=== PATIENT | female | born 1990 | race Caucasian/White ===

== ENCOUNTER 2016-09-11 14:17 | Inpatient (IN) | payer MEDICAID ==
[~2016-09-11] VITALS: Ht 165.1 cm; Wt 122.5 kg
[~2016-09-11 14:17] MED LIST: ASPI-231 PO; BACL20TA PO; DOCU-94 PO; DULO60CA PO; FAM20T PO; FLUR30CA12 PO; FURO40TA PO; GABA250S2 PO; LOPE1SUS PO; LORA1TAB12 PO; OXY5T GT; Phenazopyridine Hcl PO; ZOLP12.564 PO
[2016-09-11 15:42] LABS: Urine Bilirubin Negative (Negative); Urine Blood Negative /uL (Negative); Urine Glucose Normal (Normal); Urine Ketone Negative (Negative); Urine Nitrite Negative (Negative); Urine RBC 4 /hpf (0 - 4); Urine Squamous Epithelial Cell FEW /hpf (<5); Urine Urobilinogen Normal (Negative)
[2016-09-11 15:43] LABS: Urine Color Straw (Yellow)
[2016-09-11 16:03] LABS: Basophils # (auto) 0 uL; Basophils % (auto) 0.2 % (0.0-2.0); Eosinophils # (auto) 0.1 uL; Hematocrit 36.6 % (36.0-46.0); Hemoglobin 11.9 g/dL (12.2-16.2); Lymphocytes # (auto) 1.6 uL; Lymphocytes % (auto) 16.9 % (10.0-50.0); Mean Corpuscular Hemoglobin 29.7 pg (28.0-32.0); Mean Corpuscular Hgb Conc. 32.4 g/dL (32.0-36.0); Mean Corpuscular Volume 91.5 fL (80.0-100.0); Mean Platelet Volume 8.3 fL (7.4-10.4); Monocytes # (auto) 0.8 uL; Monocytes % (auto) 7.9 % (0.0-12.0); Neutrophils # (auto) 7.1 uL; Platelet Count (auto) 317 10^3/uL (140-450); Red Cell Distribution Width 14.4 % (11.6-16.0); White Blood Cell 9.5 10^3/uL (4.4-10.8)
[2016-09-11 16:17] LABS: Albumin 3.9 g/dL (3.4-5.0); BUN/Creatinine Ratio 11.1; Calcium 8.6 mg/dL (8.5-10.1); Potassium 4.2 mmol/L (3.5-5.1)
[2016-09-11 16:20] LABS: Bilirubin, Total 0.2 mg/dL (0.2-1.0)
[2016-09-11] MEDS ORDERED: diphenhdrAMINE HCL 50 MG/1 ML VL IV ONE (22:00)
[2016-09-11] MEDS: HYDROmorphone HCL 2 MG/ML VL IV ONE (22:15)
[2016-09-11] MEDS ORDERED: ONDANSETRON ODT 4 MG TAB PO ONE (22:15)
[2016-09-11] MEDS ORDERED: HYDROmorphone HCL 2 MG/ML VL IV ONE (22:15)
[2016-09-11] MEDS ORDERED: PROMETHAZINE-DM 5 ML ORAL SYRUP PO ONE (22:45)
[2016-09-11] MEDS ORDERED: guaiFENesin 200 MG/10 ML UD PO ONE (23:00)
[2016-09-12] MEDS ORDERED: guaiFENesin-DEXTROMETHORPHAN 5ML SYR PO ONE (01:00)
[2016-09-12] MEDS ORDERED: LORazepam 2MG/ML-1ML VIAL IV ONE (01:00)
[2016-09-12] MEDS ORDERED: IPRATROPIUM BROM 0.5 MG/2.5ML INH SOL NEB ONE (01:30)
[2016-09-12] MEDS ORDERED: ALBUTEROL SULF 2.5 MG/0.5ML(0.5%) NEB SOLN NEB ONE (01:30)
[2016-09-12] MEDS ORDERED: LORazepam 0.5 MG TAB PO PRN (03:15)
[2016-09-12] MEDS ORDERED: SODIUM CHLORIDE 0.9% 1,000 ML IV SCH (03:20)
[2016-09-12] MEDS ORDERED: LACTULOSE 20Gm/30ML SOLN PO PRN (03:30)
[2016-09-12] MEDS: methylPREDNISolone SOD SUCC 125 MG/2 ML VL IV SCH ×2 (03:30→08:33)
[2016-09-12] MEDS ORDERED: MORPHINE SULF INJ 2 MG/ML SYRINGE 1ML IV PRN (03:30)
[2016-09-12] MEDS ORDERED: NITROGLYCERIN 0.4 MG SL TAB SL PRN (03:30)
[2016-09-12] MEDS: HYDROmorphone HCL 2 MG/ML VL IV PRN ×2 (03:43→08:33)
[2016-09-12] MEDS: ONDANSETRON HCL 4 MG/2 ML VIAL IV PRN ×2 (03:52→08:33)
[2016-09-12 03:59] VITALS: BP 109/59
[2016-09-12] MEDS ORDERED: AZITHROMYCIN 500MG/D5W 250ML 250 ML IV ONE (04:00)
[2016-09-12] MEDS: cefTRIAXone 1GM/50ML D5W 50 ML IV SCH ×2 (04:03→08:33)
[2016-09-12 05:00] VITALS: BP 112/64
[2016-09-12] MEDS: GABAPENTIN 300 MG CAP PO SCH ×2 (06:18→15:04)
[2016-09-12] MEDS: BACLOFEN 10 MG TAB PO SCH ×2 (06:19→15:04)
[2016-09-12] MEDS: IPRATROPIUM BROM 0.5 MG/2.5ML INH SOL NEB SCH ×3 (06:40→13:55)
[2016-09-12] MEDS: ALBUTEROL SULF 2.5 MG/0.5ML(0.5%) NEB SOLN NEB SCH ×3 (06:40→13:55)
[2016-09-12] MEDS ORDERED: BUTACAP35 PO (08:12)
[2016-09-12] MEDS ORDERED: ASPirin 81 mg TAB PO SCH (10:00)
[2016-09-12] MEDS ORDERED: ENOXAPARIN SOD 40 MG/0.4 ML SYRINGE SC SCH (10:00)
[2016-09-12] MEDS ORDERED: PANTOPRAZOLE SODIUM 40 MG/10 ML VIAL IV SCH (10:00)
[2016-09-12] MEDS ORDERED: DULoxetine HCL 30 MG CAP PO SCH (10:00)
[2016-09-12] MEDS ORDERED: ACETAMINOPHEN 325 MG TAB PO PRN (12:00)
[2016-09-12] MEDS ORDERED: HYDROcodone-ACET 5/325MG TAB PO PRN (12:00)
[2016-09-12 13:07] VITALS: BP 110/51
[2016-09-12] MEDS ORDERED: HYDROmorphone HCL 2 MG/ML VL IV PRN (14:30)
[2016-09-12] MEDS ORDERED: METH4PAK PO (15:27)
[2016-09-12] MEDS ORDERED: LEVO500T3 PO (15:27)
[2016-09-12] MEDS ORDERED: IPRIH IN (15:27)
[2016-09-12] MEDS ORDERED: OXYCODONE HCL 5MG TAB PO PRN (15:30)
[2016-09-12 16:28] VITALS: BP 110/51
[2016-09-12 17:37] VITALS: BP 105/66
[2016-09-13] MEDS ORDERED: AZITHROMYCIN 500MG/D5W 250ML 250 ML IV SCH (10:00)
== END 2016-09-12 17:45 | disposition home health service (06) | DRG 140 ==
LOC: ER 14:29 → TELE 14:30 → TELE-WESTW 09-12 04:43
PROVIDERS: ADMIT Family Medicine; ATTEND Family Medicine
DX: J44.0 Chronic obstructive pulmonary disease with (acute) lower respiratory infection (principal); I27.2 Other secondary pulmonary hypertension; Z93.0 Tracheostomy status; G31.89 Other specified degenerative diseases of nervous system; F41.9 Anxiety disorder, unspecified; G89.4 Chronic pain syndrome; J20.9 Acute bronchitis, unspecified; J44.1 Chronic obstructive pulmonary disease with (acute) exacerbation; J45.30 Mild persistent asthma, uncomplicated; J98.11 Atelectasis; K21.9 Gastro-esophageal reflux disease without esophagitis; M79.7 Fibromyalgia; N39.0 Urinary tract infection, site not specified; G89.29 Other chronic pain; M54.5 Low back pain; F32.9 Major depressive disorder, single episode, unspecified; K59.00 Constipation, unspecified; G47.00 Insomnia, unspecified
CPT/HCPCS: 36415; 71020; 80053; 81001; 81025; 85025; 85049; 85379; 87040; 87070; 87400; 93005; 94640; 96361; 96374; 96375; 97116; 97530; C9113; J0696; J2405; Q0162

== ENCOUNTER 2016-12-24 12:58 | Inpatient (IN) | payer MEDICAID ==
[~2016-12-24] VITALS: Ht 165.1 cm; Wt 123.1 kg
[~2016-12-24 12:58] MED LIST changes: +BUTACAP35 PO; +IPRIH IN; +LEVO500T3 PO; +METH4PAK PO
[2016-12-24 14:12] LABS: Basophils # (auto) 0 uL; Basophils % (auto) 0.3 % (0.0-2.0); Eosinophils # (auto) 0.1 uL; Eosinophils % (auto) 0.6 % (0.0-7.0); Hematocrit 39.5 % (36.0-46.0); Hemoglobin 13.2 g/dL (12.2-16.2); Lymphocytes # (auto) 1.4 uL; Lymphocytes % (auto) 12.5 % (10.0-50.0); Mean Corpuscular Hemoglobin 30.1 pg (28.0-32.0); Mean Corpuscular Hgb Conc. 33.4 g/dL (32.0-36.0); Mean Corpuscular Volume 90.2 fL (80.0-100.0); Mean Platelet Volume 8.6 fL (7.4-10.4); Monocytes # (auto) 0.8 uL; Monocytes % (auto) 6.8 % (0.0-12.0); Neutrophils # (auto) 9.2 uL; Neutrophils % (auto) 79.8 % (37.0-80.0); Platelet Count (auto) 333 10^3/uL (140-450); Red Cell Distribution Width 14.1 % (11.6-16.0); White Blood Cell 11.5 10^3/uL (4.4-10.8)
[2016-12-24 14:28] LABS: Albumin 4.2 g/dL (3.4-5.0); BUN/Creatinine Ratio 8.8; Bilirubin, Total 0.3 mg/dL (0.2-1.0); Potassium 3.9 mmol/L (3.5-5.1); Total Protein 7.5 g/dL (6.4-8.2)
[2016-12-24 14:39] LABS: B-Type Natriuretic Peptide 4.91 pg/mL (0-100)
[2016-12-24 14:51] LABS: Temperature: 23.6 C (20.0-25.0)
[2016-12-24] MEDS ORDERED: diphenhdrAMINE HCL 50 MG/1 ML VL IV ONE (15:30)
[2016-12-24] MEDS ORDERED: MORPHINE SULFATE 4 MG/ML SYRG IV ONE (15:30)
[2016-12-24] MEDS ORDERED: IPRATROPIUM BROM 0.5 MG/2.5ML INH SOL NEB ONE (15:30)
[2016-12-24] MEDS ORDERED: cefTRIAXone 1GM/50ML D5W 50 ML IV ONE (15:30)
[2016-12-24] MEDS ORDERED: methylPREDNISolone SOD SUCC 125 MG/2 ML VL IV ONE (15:30)
[2016-12-24] MEDS ORDERED: ALBUTEROL SULF 2.5 MG/0.5ML(0.5%) NEB SOLN NEB ONE (15:30)
[2016-12-24] MEDS ORDERED: FLURAZEPAM HCL 30 MG PO PRN (15:45)
[2016-12-24] MEDS ORDERED: OXYCODONE HCL 5MG TAB GT PRN (15:45)
[2016-12-24] MEDS: DOXYCYCLINE HYC 100MG/250ML 250 ML IV SCH (15:45)
[2016-12-24] MEDS ORDERED: NITROGLYCERIN 0.4 MG SL TAB SL PRN (15:45)
[2016-12-24] MEDS ORDERED: MORPHINE SULF INJ 2 MG/ML SYRINGE 1ML IV PRN (15:45)
[2016-12-24] MEDS ORDERED: BUTALBITAL-ASPIRIN-CAFF(FioriNAL) CAP PO PRN (15:45)
[2016-12-24] MEDS ORDERED: ZOLPIDEM TARTRATE 5 MG TAB PO PRN (15:45)
[2016-12-24] MEDS ORDERED: ACETAMINOPHEN 500 MG TAB PO PRN (15:45)
[2016-12-24] MEDS ORDERED: LACTULOSE 20Gm/30ML SOLN PO PRN (15:45)
[2016-12-24] MEDS ORDERED: ALBUTEROL SULF 2.5 MG/0.5ML(0.5%) NEB SOLN NEB PRN (15:45)
[2016-12-24] MEDS ORDERED: ASPirin-EC 81 mg tab PO ONE (16:00)
[2016-12-24] MEDS ORDERED: FAMOTIDINE 20 MG TAB PO ONE (16:00)
[2016-12-24] MEDS ORDERED: ENOXAPARIN SOD 40 MG/0.4 ML SYRINGE SC ONE (16:00)
[2016-12-24] MEDS ORDERED: SODIUM CHLORIDE 0.9% 1,000 ML IV ONE (16:00)
[2016-12-24] MEDS: PROCHLORPERAZINE EDISYLATE 5 MG/ML 2ML VIAL IV PRN (16:31)
[2016-12-24] MEDS: PROMETHAZINE W/CODEINE 5 ML ORAL SYRUP PO PRN ×2 (16:31→20:53)
[2016-12-24] MEDS: methylPREDNISolone SOD SUCC 40 MG/ML VL IV SCH (17:42)
[2016-12-24 17:59] VITALS: BP 115/40
[2016-12-24 18:01] LABS: Urine Bilirubin Negative (Negative); Urine Blood Negative /uL (Negative); Urine Color Yellow (Yellow); Urine Glucose Normal (Normal); Urine Ketone Negative (Negative); Urine Nitrite Negative (Negative); Urine RBC 5 /hpf (0 - 4); Urine Squamous Epithelial Cell MANY /hpf (<5); Urine Urobilinogen Normal (Negative); Urine pH 6.5 (5.0-8.0)
[2016-12-24] MEDS ORDERED: TOPI50TA32 PO (18:23)
[2016-12-24] MEDS ORDERED: MORP60TA25 PO (18:23)
[2016-12-24] MEDS ORDERED: MORP30TA PO (18:23)
[2016-12-24] MEDS: ALBUTEROL SULF 2.5 MG/0.5ML(0.5%) NEB SOLN NEB SCH (18:29)
[2016-12-24] MEDS: IPRATROPIUM BROM 0.5 MG/2.5ML INH SOL NEB SCH (18:29)
[2016-12-24 19:40] VITALS: BP 103/57
[2016-12-24] MEDS: MORPHINE SULF INJ 2 MG/ML SYRINGE 1ML IV PRN (20:32)
[2016-12-24] MEDS: DOCUSATE SOD 100 MG CAP PO SCH (20:54)
[2016-12-24] MEDS: DULoxetine HCL 30 MG CAP PO SCH (20:54)
[2016-12-24] MEDS: BACLOFEN 10 MG TAB PO SCH (20:54)
[2016-12-24] MEDS: GABAPENTIN 300 MG CAP PO SCH (20:54)
[2016-12-24] MEDS: SODIUM CHLOR 0.9% PF (SALINE LOCK) 10ML VIAL IV SCH (20:56)
[2016-12-24] MEDS ORDERED: diphenhdrAMINE HCL 25 MG CAP PO ONE (21:00)
[2016-12-24] MEDS ORDERED: LORazepam 0.5 MG TAB PO PRN (21:30)
[2016-12-24] MEDS: LORazepam 0.5 MG TAB PO PRN (21:34)
[2016-12-24 22:00] VITALS: BP 103/57
[2016-12-25] VITALS (7 sets, daily range): BP systolic 102–118; BP diastolic 56–63
[2016-12-25] MEDS: methylPREDNISolone SOD SUCC 40 MG/ML VL IV SCH ×4 (00:29→17:16)
[2016-12-25] MEDS: MORPHINE SULF INJ 2 MG/ML SYRINGE 1ML IV PRN ×6 (00:35→21:20)
[2016-12-25] MEDS: PROCHLORPERAZINE EDISYLATE 5 MG/ML 2ML VIAL IV PRN ×3 (00:42→17:16)
[2016-12-25] MEDS: IPRATROPIUM BROM 0.5 MG/2.5ML INH SOL NEB SCH ×4 (01:01→20:07)
[2016-12-25] MEDS: ALBUTEROL SULF 2.5 MG/0.5ML(0.5%) NEB SOLN NEB SCH ×4 (01:01→20:08)
[2016-12-25] MEDS: PROMETHAZINE W/CODEINE 5 ML ORAL SYRUP PO PRN ×3 (01:28→15:45)
[2016-12-25] MEDS ORDERED: MORP60TA25 PO (01:54)
[2016-12-25] MEDS ORDERED: MORP15TA PO (01:54)
[2016-12-25] MEDS: DOXYCYCLINE HYC 100MG/250ML 250 ML IV SCH ×2 (04:36→16:07)
[2016-12-25] MEDS: SODIUM CHLOR 0.9% PF (SALINE LOCK) 10ML VIAL IV SCH ×3 (06:01→21:15)
[2016-12-25] MEDS: BACLOFEN 10 MG TAB PO SCH ×3 (06:01→21:16)
[2016-12-25] MEDS: GABAPENTIN 300 MG CAP PO SCH ×3 (06:02→21:17)
[2016-12-25] MEDS ORDERED: FUROSEMIDE 40 MG TAB PO SCH (07:00)
[2016-12-25] MEDS: ASPirin-EC 81 mg tab PO SCH (10:23)
[2016-12-25] MEDS: DOCUSATE SOD 100 MG CAP PO SCH ×2 (10:23→21:16)
[2016-12-25] MEDS: DULoxetine HCL 30 MG CAP PO SCH ×2 (10:24→21:16)
[2016-12-25] MEDS: FAMOTIDINE 20 MG TAB PO SCH (10:24)
[2016-12-25] MEDS: ENOXAPARIN SOD 40 MG/0.4 ML SYRINGE SC SCH (10:24)
[2016-12-25] MEDS ORDERED: GABA300C8 PO (13:12)
[2016-12-25] MEDS ORDERED: BACL20TA PO (13:15)
[2016-12-25] MEDS: diphenhdrAMINE HCL 25 MG CAP PO PRN (18:55)
[2016-12-25] MEDS: LORazepam 0.5 MG TAB PO PRN (21:18)
[2016-12-25] MEDS: guaiFENesin-DEXTROMETHORPHAN 5ML SYR GT PRN (21:19)
[2016-12-25] MEDS: TOPIRAMATE 25 MG TAB PO SCH (21:22)
[2016-12-25 22:13] LABS: Urine Bilirubin Negative (Negative); Urine Blood Negative /uL (Negative); Urine Color Yellow (Yellow); Urine Glucose Normal (Normal); Urine Ketone Negative (Negative); Urine Nitrite Negative (Negative); Urine RBC <1 /hpf (0 - 4); Urine Squamous Epithelial Cell FEW /hpf (<5); Urine Urobilinogen Normal (Negative); Urine pH 5.5 (5.0-8.0)
[2016-12-26] VITALS (7 sets, daily range): BP systolic 109–121; BP diastolic 52–118
[2016-12-26] MEDS: ALBUTEROL SULF 2.5 MG/0.5ML(0.5%) NEB SOLN NEB SCH ×3 (00:46→11:25)
[2016-12-26] MEDS: IPRATROPIUM BROM 0.5 MG/2.5ML INH SOL NEB SCH ×3 (00:46→11:25)
[2016-12-26] MEDS: methylPREDNISolone SOD SUCC 40 MG/ML VL IV SCH ×3 (01:14→13:07)
[2016-12-26] MEDS: guaiFENesin-DEXTROMETHORPHAN 5ML SYR GT PRN ×4 (01:35→15:21)
[2016-12-26] MEDS: MORPHINE SULF INJ 2 MG/ML SYRINGE 1ML IV PRN ×4 (01:35→15:20)
[2016-12-26] MEDS: diphenhdrAMINE HCL 25 MG CAP PO PRN ×2 (01:35→08:24)
[2016-12-26] MEDS: DOXYCYCLINE HYC 100MG/250ML 250 ML IV SCH (03:43)
[2016-12-26] MEDS: BACLOFEN 10 MG TAB PO SCH ×2 (06:29→13:08)
[2016-12-26] MEDS: SODIUM CHLOR 0.9% PF (SALINE LOCK) 10ML VIAL IV SCH ×2 (06:29→13:07)
[2016-12-26] MEDS: GABAPENTIN 300 MG CAP PO SCH ×2 (06:30→13:11)
[2016-12-26] MEDS: PROCHLORPERAZINE EDISYLATE 5 MG/ML 2ML VIAL IV PRN (06:38)
[2016-12-26] MEDS: LORazepam 0.5 MG TAB PO PRN (08:36)
[2016-12-26] MEDS: DOCUSATE SOD 100 MG CAP PO SCH (09:56)
[2016-12-26] MEDS: ASPirin-EC 81 mg tab PO SCH (09:57)
[2016-12-26] MEDS: DULoxetine HCL 30 MG CAP PO SCH (09:57)
[2016-12-26] MEDS: FAMOTIDINE 20 MG TAB PO SCH (09:58)
[2016-12-26] MEDS: TOPIRAMATE 25 MG TAB PO SCH (09:58)
[2016-12-26] MEDS: ENOXAPARIN SOD 40 MG/0.4 ML SYRINGE SC SCH (10:04)
[2016-12-26] MEDS ORDERED: IPR002IS HHN (11:36)
[2016-12-26] MEDS ORDERED: DOXY1CAP82 PO (11:36)
[2016-12-26] MEDS ORDERED: PRED-559 PO (11:36)
[2016-12-26] MEDS ORDERED: ALB5IS NEB (11:36)
[2016-12-26] MEDS ORDERED: ONDANSETRON HCL 4 MG/2 ML VIAL IV PRN (11:45)
== END 2016-12-26 17:47 | disposition home or self-care (01) | DRG 140 ==
LOC: ER 13:03 → TELE 13:04 → TELE-WESTW 19:49
PROVIDERS: ADMIT Internal Medicine; ATTEND Internal Medicine
DX: J44.0 Chronic obstructive pulmonary disease with (acute) lower respiratory infection (principal); I27.2 Other secondary pulmonary hypertension; J96.10 Chronic respiratory failure, unspecified whether with hypoxia or hypercapnia; Z93.0 Tracheostomy status; Z68.42 Body mass index [BMI] 45.0-49.9, adult; E66.01 Morbid (severe) obesity due to excess calories; Z99.81 Dependence on supplemental oxygen; J20.9 Acute bronchitis, unspecified; J44.1 Chronic obstructive pulmonary disease with (acute) exacerbation; M79.7 Fibromyalgia; F41.9 Anxiety disorder, unspecified; G40.909 Epilepsy, unspecified, not intractable, without status epilepticus; G89.4 Chronic pain syndrome; Z77.22 Contact with and (suspected) exposure to environmental tobacco smoke (acute) (chronic); Z80.3 Family history of malignant neoplasm of breast; Z80.8 Family history of malignant neoplasm of other organs or systems; Z81.8 Family history of other mental and behavioral disorders; Z82.5 Family history of asthma and other chronic lower respiratory diseases; Z83.3 Family history of diabetes mellitus; Z87.01 Personal history of pneumonia (recurrent); Z91.048 Other nonmedicinal substance allergy status; Z87.440 Personal history of urinary (tract) infections; Z84.1 Family history of disorders of kidney and ureter; Z81.1 Family history of alcohol abuse and dependence; Z84.89 Family history of other specified conditions; Z88.8 Allergy status to other drugs, medicaments and biological substances; Z79.899 Other long term (current) drug therapy
CPT/HCPCS: 36415; 71020; 71250; 80053; 81001; 81025; 83880; 85025; 87040; 87070; 87205; 94640; 96365; 96372; 96375; 99291; J0696; J2405; J3490

== ENCOUNTER 2017-01-03 21:36 | Inpatient (IN) | payer MEDICAID ==
[~2017-01-03] VITALS: Ht 165.1 cm; Wt 125.3 kg
[~2017-01-03 21:36] MED LIST changes: +ALB5IS NEB; +DOXY1CAP82 PO; -FLUR30CA12 PO; -GABA250S2 PO; +GABA300C8 PO; +IPR002IS HHN; -METH4PAK PO; +MORP15TA PO; +MORP60TA25 PO; -OXY5T GT; +PRED-559 PO; -Phenazopyridine Hcl PO; +TOPI50TA32 PO; -ZOLP12.564 PO
[2017-01-03] MEDS ORDERED: ALBUTEROL SULF 2.5 MG/0.5ML(0.5%) NEB SOLN NEB ONE (22:00)
[2017-01-03] MEDS ORDERED: IPRATROPIUM BROM 0.5 MG/2.5ML INH SOL NEB ONE (22:00)
[2017-01-03] MEDS ORDERED: methylPREDNISolone SOD SUCC 125 MG/2 ML VL IV ONE (22:00)
[2017-01-03 22:29] LABS: Basophils # (auto) 0 uL; DEFINITIVE VIEW TRANSMISSION; Eosinophils # (auto) 0.3 uL; Eosinophils % (auto) 1.3 % (0.0-7.0); Hematocrit 39.3 % (36.0-46.0); Hemoglobin 12.9 g/dL (12.2-16.2); Lymphocytes # (auto) 2.2 uL; Lymphocytes % (auto) 11.3 % (10.0-50.0); Mean Corpuscular Hemoglobin 30.1 pg (28.0-32.0); Mean Corpuscular Hgb Conc. 32.9 g/dL (32.0-36.0); Mean Corpuscular Volume 91.5 fL (80.0-100.0); Mean Platelet Volume 8.1 fL (7.4-10.4); Monocytes # (auto) 2.4 uL; Monocytes % (auto) 12.1 % (0.0-12.0); Neutrophils # (auto) 14.7 uL; Neutrophils % (auto) 75.3 % (37.0-80.0); Platelet Count (auto) 410 10^3/uL (140-450); Red Cell Distribution Width 14.9 % (11.6-16.0); White Blood Cell 19.6 10^3/uL (4.4-10.8)
[2017-01-03 22:47] LABS: Albumin 3.5 g/dL (3.4-5.0); Anion Gap 12 (5-15); Aspartate Aminotransferase 10 U/L (15-37); BUN/Creatinine Ratio 15.5; Blood Urea Nitrogen 15 mg/dL (7-18); Calcium 8.5 mg/dL (8.5-10.1); Carbon Dioxide 25 mmol/L (21-32); Chloride 105 mmol/L (98-107); GFR African American 88 mL/min; GFR Non-African American 73 mL/min; Glucose 127 mg/dL (74-106); Magnesium 2.3 mg/dL (1.6-2.6); Potassium 3.8 mmol/L (3.5-5.1); Sodium 142 mmol/L (136-145)
[2017-01-03 22:52] LABS: Alkaline Phosphatase 64 U/L (45-117); Bilirubin, Total 0.2 mg/dL (0.2-1.0); Total Protein 6.4 g/dL (6.4-8.2)
[2017-01-03 22:53] LABS: Lactic Acid w/Reflex 2.5 mmol/L (0.4-2.0)
[2017-01-03 23:01] LABS: REFLEX LACTIC ACID YES OR NO YES
[2017-01-04] MEDS ORDERED: diphenhdrAMINE HCL 50 MG/1 ML VL IV ONE ×2 (00:30→02:15)
[2017-01-04] MEDS ORDERED: AZITHROMYCIN 500MG/D5W 250ML 250 ML IV ONE (01:30)
[2017-01-04] MEDS ORDERED: ONDANSETRON HCL 4 MG/2 ML VIAL IV ONE ×3 (01:30→09:00)
[2017-01-04] MEDS ORDERED: LEVOFLOXACIN 750MG 150 ML IV ONE (01:30)
[2017-01-04] MEDS ORDERED: HYDROmorphone HCL 2 MG/ML VL IV ONE ×2 (01:30→05:00)
[2017-01-04] MEDS ORDERED: PROMETHAZINE W/CODEINE 5 ML ORAL SYRUP PO ONE (02:30)
[2017-01-04] MEDS ORDERED: KETOROLAC TROMETH 30 MG/ML 1ML VIAL IV ONE (05:15)
[2017-01-04] MEDS ORDERED: NALBUPHINE HCL 10 MG/1ml INJECTION IV ONE (09:00)
[2017-01-04] MEDS ORDERED: MORPHINE SULF INJ 2 MG/ML SYRINGE 1ML IV PRN ×2 (11:00)
[2017-01-04] MEDS ORDERED: TEMAZEPAM 15 MG CAP PO PRN (11:00)
[2017-01-04] MEDS ORDERED: NITROGLYCERIN 0.4 MG SL TAB SL PRN (11:00)
[2017-01-04] MEDS ORDERED: DOCUSATE SOD 100 MG CAP PO PRN (11:00)
[2017-01-04] MEDS ORDERED: HYDROcodone-ACET 5/325MG TAB PO PRN (11:00)
[2017-01-04] MEDS ORDERED: BACLOFEN 10 MG TAB PO PRN (11:15)
[2017-01-04] MEDS ORDERED: VANCOMYCIN PER PHARMACY 0 MG IV SCH (11:15)
[2017-01-04] MEDS ORDERED: BUTALBITAL-ASPIRIN-CAFF(FioriNAL) CAP PO PRN (11:15)
[2017-01-04] MEDS ORDERED: LOPERAMIDE HCL 2 MG CAP PO PRN (11:15)
[2017-01-04] MEDS ORDERED: FUROSEMIDE 40 MG TAB PO ONE (11:15)
[2017-01-04] MEDS: ASPirin-EC 81 mg tab PO SCH (11:46)
[2017-01-04] MEDS: FAMOTIDINE 20 MG TAB PO SCH ×2 (11:46→21:44)
[2017-01-04] MEDS: VANCOMYCIN 1GM/250ML D5W 250 ML IV SCH ×2 (12:00→20:09)
[2017-01-04 13:06] LABS: Lactic Acid w/Reflex 2.6 mmol/L (0.4-2.0)
[2017-01-04 13:11] LABS: REFLEX LACTIC ACID YES OR NO YES
[2017-01-04] MEDS ORDERED: MORP15TA PO (13:13)
[2017-01-04] MEDS: methylPREDNISolone SOD SUCC 40 MG/ML VL IV SCH ×2 (13:30→18:21)
[2017-01-04] MEDS: KETOROLAC TROMETH 30 MG/ML 1ML VIAL IV PRN ×2 (13:30→19:25)
[2017-01-04] MEDS: ONDANSETRON HCL 4 MG/2 ML VIAL IV PRN ×2 (13:30→21:54)
[2017-01-04] MEDS: SODIUM CHLOR 0.9% PF (SALINE LOCK) 10ML VIAL IV SCH ×2 (14:00→22:37)
[2017-01-04] MEDS ORDERED: MORPHINE SULF INJ 2 MG/ML SYRINGE 1ML IV ONE (16:15)
[2017-01-04] MEDS ORDERED: diphenhdrAMINE HCL 25 MG CAP PO PRN (16:15)
[2017-01-04] MEDS: ALBUTEROL SULF 2.5 MG/0.5ML(0.5%) NEB SOLN NEB SCH ×3 (16:37→22:02)
[2017-01-04] MEDS: IPRATROPIUM BROM 0.5 MG/2.5ML INH SOL NEB SCH ×3 (16:37→22:02)
[2017-01-04] MEDS: GABAPENTIN 400 MG CAP PO SCH ×2 (16:37→21:42)
[2017-01-04 17:40] VITALS: BP 129/75
[2017-01-04 21:30] VITALS: BP 123/69
[2017-01-04] MEDS: TOPIRAMATE 25 MG TAB PO SCH (21:43)
[2017-01-04] MEDS: MORPHINE SULF 30 mg ER tab PO SCH (21:44)
[2017-01-04] MEDS: DULoxetine HCL 30 MG CAP PO SCH (21:44)
[2017-01-04 21:50] VITALS: BP 124/73
[2017-01-04 21:52] LABS: Urine Bilirubin Negative (Negative); Urine Blood Negative /uL (Negative); Urine Color Yellow (Yellow); Urine Glucose TRACE mg/dL (Normal); Urine Ketone Negative (Negative); Urine Nitrite Negative (Negative); Urine RBC <1 /hpf (0 - 4); Urine Squamous Epithelial Cell FEW /hpf (<5); Urine Urobilinogen Normal (Negative)
[2017-01-05] MEDS: methylPREDNISolone SOD SUCC 40 MG/ML VL IV SCH ×2 (00:31→05:52)
[2017-01-05] MEDS: LORazepam 0.5 MG TAB PO PRN ×3 (00:31→20:05)
[2017-01-05] MEDS ORDERED: LEVOFLOXACIN 500MG 100 ML IV SCH (02:00)
[2017-01-05] MEDS: IPRATROPIUM BROM 0.5 MG/2.5ML INH SOL NEB SCH ×6 (02:43→22:23)
[2017-01-05] MEDS: ALBUTEROL SULF 2.5 MG/0.5ML(0.5%) NEB SOLN NEB SCH ×6 (02:43→22:23)
[2017-01-05] MEDS: VANCOMYCIN 1GM/250ML D5W 250 ML IV SCH ×3 (04:51→20:05)
[2017-01-05] MEDS: KETOROLAC TROMETH 30 MG/ML 1ML VIAL IV PRN ×3 (05:03→17:42)
[2017-01-05] MEDS: SODIUM CHLOR 0.9% PF (SALINE LOCK) 10ML VIAL IV SCH ×3 (05:51→22:07)
[2017-01-05] MEDS: GABAPENTIN 400 MG CAP PO SCH ×3 (05:52→22:09)
[2017-01-05 05:57] VITALS: BP 111/60
[2017-01-05] MEDS: ONDANSETRON HCL 4 MG/2 ML VIAL IV PRN ×3 (06:27→17:37)
[2017-01-05 06:36] LABS: Hematocrit 36.8 % (36.0-46.0); Hemoglobin 12.1 g/dL (12.2-16.2); Mean Corpuscular Volume 90.9 fL (80.0-100.0); Mean Platelet Volume 8.6 fL (7.4-10.4); Platelet Count (auto) 358 10^3/uL (140-450); Red Cell Distribution Width 14.6 % (11.6-16.0); SUSPECT VIEW TRANSMISSION; White Blood Cell 21.4 10^3/uL (4.4-10.8)
[2017-01-05 06:41] LABS: Metamyelocytes % 0; Myelocytes % 0; Promyelocytes % 0; Reactive Lymphocytes 0
[2017-01-05 06:55] LABS: Albumin 3.5 g/dL (3.4-5.0); BUN/Creatinine Ratio 22.8; Bilirubin, Total 0.3 mg/dL (0.2-1.0); Calcium 8.4 mg/dL (8.5-10.1); Total Protein 6.5 g/dL (6.4-8.2)
[2017-01-05 09:00] VITALS: BP 108/68
[2017-01-05 09:39] LABS: Platelet Estimate Adequate
[2017-01-05 09:40] LABS: Stomatocytes Few
[2017-01-05] MEDS: MORPHINE SULF 30 mg ER tab PO SCH ×2 (09:58→22:09)
[2017-01-05] MEDS: DULoxetine HCL 30 MG CAP PO SCH ×2 (09:58→22:08)
[2017-01-05] MEDS: FAMOTIDINE 20 MG TAB PO SCH ×2 (09:59→22:09)
[2017-01-05] MEDS: MULTIPLE VITAMIN TAB PO SCH (09:59)
[2017-01-05] MEDS: ASPirin-EC 81 mg tab PO SCH (09:59)
[2017-01-05] MEDS: TOPIRAMATE 25 MG TAB PO SCH ×2 (09:59→22:10)
[2017-01-05] MEDS: FUROSEMIDE 40 MG TAB PO SCH (09:59)
[2017-01-05] MEDS: ACETAMINOPHEN 325 MG TAB PO PRN ×2 (10:03→22:26)
[2017-01-05 13:00] VITALS: BP 116/40
[2017-01-05] MEDS: PIPERACILLIN TAZO IV SCH ×2 (13:48→22:07)
[2017-01-05] MEDS: [UNRECOGNIZED DRUG - OTHER] IV SCH ×2 (13:48→22:07)
[2017-01-05] MEDS: diphenhdrAMINE HCL 50 MG/1 ML VL IV PRN ×2 (15:36→22:11)
[2017-01-05 17:00] VITALS: BP 114/55
[2017-01-05] MEDS: methylPREDNISolone SOD SUCC 125 MG/2 ML VL IV SCH (17:37)
[2017-01-05 20:00] VITALS: BP 105/52
[2017-01-05 21:22] VITALS: BP 105/62
[2017-01-06] VITALS (7 sets, daily range): BP systolic 113–124; BP diastolic 60–72
[2017-01-06] MEDS: methylPREDNISolone SOD SUCC 125 MG/2 ML VL IV SCH ×5 (00:17→23:42)
[2017-01-06] MEDS: IPRATROPIUM BROM 0.5 MG/2.5ML INH SOL NEB SCH ×6 (02:10→22:38)
[2017-01-06] MEDS: ALBUTEROL SULF 2.5 MG/0.5ML(0.5%) NEB SOLN NEB SCH ×6 (02:10→22:38)
[2017-01-06] MEDS: ONDANSETRON HCL 4 MG/2 ML VIAL IV PRN ×4 (03:22→22:53)
[2017-01-06] MEDS: KETOROLAC TROMETH 30 MG/ML 1ML VIAL IV PRN (03:22)
[2017-01-06] MEDS: VANCOMYCIN 1GM/250ML D5W 250 ML IV SCH ×2 (03:51→11:39)
[2017-01-06] MEDS: diphenhdrAMINE HCL 50 MG/1 ML VL IV PRN ×3 (05:31→20:49)
[2017-01-06] MEDS: GABAPENTIN 400 MG CAP PO SCH ×3 (05:31→21:41)
[2017-01-06] MEDS: SODIUM CHLOR 0.9% PF (SALINE LOCK) 10ML VIAL IV SCH ×3 (05:32→21:40)
[2017-01-06] MEDS: [UNRECOGNIZED DRUG - OTHER] IV SCH ×3 (05:32→21:41)
[2017-01-06] MEDS: PIPERACILLIN TAZO IV SCH ×3 (05:32→21:41)
[2017-01-06 06:20] LABS: Hematocrit 36.1 % (36.0-46.0); Hemoglobin 11.8 g/dL (12.2-16.2); Mean Corpuscular Hgb Conc. 32.6 g/dL (32.0-36.0); Mean Corpuscular Volume 92.1 fL (80.0-100.0); Mean Platelet Volume 8.3 fL (7.4-10.4); Platelet Count (auto) 360 10^3/uL (140-450); Red Cell Distribution Width 14.9 % (11.6-16.0); SUSPECT VIEW TRANSMISSION
[2017-01-06 06:31] LABS: Metamyelocytes % 0; Myelocytes % 0; Promyelocytes % 0; Reactive Lymphocytes 0; White Blood Cell 30.4 10^3/uL (4.4-10.8)
[2017-01-06 06:51] LABS: BUN/Creatinine Ratio 16.8; Calcium 8.3 mg/dL (8.5-10.1); Magnesium 2.9 mg/dL (1.6-2.6); Phosphorus 2.9 mg/dL (2.5-4.90); Potassium 3.9 mmol/L (3.5-5.1)
[2017-01-06 06:55] LABS: REFLEX LACTIC ACID YES OR NO YES
[2017-01-06 09:31] LABS: Platelet Estimate Adequate
[2017-01-06] MEDS: FAMOTIDINE 20 MG TAB PO SCH ×2 (10:06→21:41)
[2017-01-06] MEDS: MULTIPLE VITAMIN TAB PO SCH (10:06)
[2017-01-06] MEDS: ASPirin-EC 81 mg tab PO SCH (10:07)
[2017-01-06] MEDS: TOPIRAMATE 25 MG TAB PO SCH ×2 (10:07→21:41)
[2017-01-06] MEDS: FUROSEMIDE 40 MG TAB PO SCH (10:07)
[2017-01-06] MEDS: DULoxetine HCL 30 MG CAP PO SCH ×2 (10:08→21:41)
[2017-01-06] MEDS: MORPHINE SULF 30 mg ER tab PO SCH (10:08)
[2017-01-06 18:04] LABS: INR 0.97 (0.9-1.15); Prothrombin Time 10.5 sec (9.37-12.3)
[2017-01-06] MEDS: HYDROmorphone HCL 2 MG/ML VL IV PRN ×2 (18:13→22:54)
[2017-01-06] MEDS: VANCOMYCIN 1,250 MG in D5W 5% 250 ML IV SCH (20:49)
[2017-01-07] MEDS: ALBUTEROL SULF 2.5 MG/0.5ML(0.5%) NEB SOLN NEB SCH ×6 (02:00→22:31)
[2017-01-07] MEDS: IPRATROPIUM BROM 0.5 MG/2.5ML INH SOL NEB SCH ×6 (02:00→22:31)
[2017-01-07] MEDS: HYDROmorphone HCL 2 MG/ML VL IV PRN ×5 (03:55→22:40)
[2017-01-07] MEDS: ONDANSETRON HCL 4 MG/2 ML VIAL IV PRN ×5 (03:55→22:40)
[2017-01-07] MEDS: VANCOMYCIN 1,250 MG in D5W 5% 250 ML IV SCH ×3 (03:56→19:41)
[2017-01-07] MEDS: methylPREDNISolone SOD SUCC 125 MG/2 ML VL IV SCH ×2 (06:02→21:42)
[2017-01-07] MEDS: SODIUM CHLOR 0.9% PF (SALINE LOCK) 10ML VIAL IV SCH ×3 (06:02→21:44)
[2017-01-07] MEDS: GABAPENTIN 400 MG CAP PO SCH ×3 (06:03→21:44)
[2017-01-07] MEDS: PIPERACILLIN TAZO IV SCH ×3 (06:03→21:42)
[2017-01-07] MEDS: [UNRECOGNIZED DRUG - OTHER] IV SCH ×3 (06:03→21:42)
[2017-01-07] MEDS: LORazepam 2MG/ML-1ML VIAL IV PRN ×2 (06:30→21:57)
[2017-01-07 06:32] LABS: Hemoglobin 11.7 g/dL (12.2-16.2); Mean Corpuscular Hgb Conc. 32.4 g/dL (32.0-36.0); Mean Corpuscular Volume 92.6 fL (80.0-100.0); Platelet Count (auto) 358 10^3/uL (140-450); Red Cell Distribution Width 14.8 % (11.6-16.0); SUSPECT VIEW TRANSMISSION; White Blood Cell 25.9 10^3/uL (4.4-10.8)
[2017-01-07 06:45] LABS: Metamyelocytes % 0; Myelocytes % 0; Promyelocytes % 0; Reactive Lymphocytes 0
[2017-01-07 06:46] LABS: Lactic Acid w/Reflex 2.2 mmol/L (0.4-2.0)
[2017-01-07 06:52] LABS: BUN/Creatinine Ratio 23.9; Calcium 7.9 mg/dL (8.5-10.1); Magnesium 2.8 mg/dL (1.6-2.6); Phosphorus 2.9 mg/dL (2.5-4.90); Potassium 3.6 mmol/L (3.5-5.1)
[2017-01-07 07:19] LABS: REFLEX LACTIC ACID YES OR NO YES
[2017-01-07 07:32] LABS: Platelet Estimate Adequate; RBC Morphology Normal
[2017-01-07 08:00] VITALS: BP 120/70
[2017-01-07 09:00] VITALS: BP 106/52
[2017-01-07] MEDS: DULoxetine HCL 30 MG CAP PO SCH ×2 (09:25→21:43)
[2017-01-07] MEDS: ASPirin-EC 81 mg tab PO SCH (09:25)
[2017-01-07] MEDS: TOPIRAMATE 25 MG TAB PO SCH ×2 (09:26→21:43)
[2017-01-07] MEDS: FAMOTIDINE 20 MG TAB PO SCH ×2 (09:26→21:44)
[2017-01-07] MEDS: MULTIPLE VITAMIN TAB PO SCH (09:26)
[2017-01-07] MEDS: FUROSEMIDE 40 MG TAB PO SCH (09:27)
[2017-01-07] MEDS: diphenhdrAMINE HCL 50 MG/1 ML VL IV PRN ×2 (11:19→20:01)
[2017-01-07 13:00] VITALS: BP 129/72
[2017-01-07 17:00] VITALS: BP 132/73
[2017-01-07 22:00] VITALS: BP 130/74
[2017-01-08] MEDS: IPRATROPIUM BROM 0.5 MG/2.5ML INH SOL NEB SCH ×4 (02:15→13:49)
[2017-01-08] MEDS: ALBUTEROL SULF 2.5 MG/0.5ML(0.5%) NEB SOLN NEB SCH ×4 (02:15→13:49)
[2017-01-08] MEDS: ONDANSETRON HCL 4 MG/2 ML VIAL IV PRN ×3 (03:23→14:42)
[2017-01-08] MEDS: HYDROmorphone HCL 2 MG/ML VL IV PRN ×2 (03:23→08:00)
[2017-01-08] MEDS: VANCOMYCIN 1,250 MG in D5W 5% 250 ML IV SCH ×2 (04:03→11:14)
[2017-01-08] MEDS: diphenhdrAMINE HCL 50 MG/1 ML VL IV PRN (04:03)
[2017-01-08] MEDS: LORazepam 2MG/ML-1ML VIAL IV PRN (04:29)
[2017-01-08] MEDS: [UNRECOGNIZED DRUG - OTHER] IV SCH (05:40)
[2017-01-08] MEDS: PIPERACILLIN TAZO IV SCH (05:40)
[2017-01-08] MEDS: SODIUM CHLOR 0.9% PF (SALINE LOCK) 10ML VIAL IV SCH ×2 (05:40→11:14)
[2017-01-08] MEDS: GABAPENTIN 400 MG CAP PO SCH ×2 (05:41→14:45)
[2017-01-08 05:50] VITALS: BP 140/83
[2017-01-08 09:05] VITALS: BP 100/57
[2017-01-08] MEDS: DULoxetine HCL 30 MG CAP PO SCH (09:29)
[2017-01-08] MEDS: FUROSEMIDE 40 MG TAB PO SCH (09:30)
[2017-01-08] MEDS: FAMOTIDINE 20 MG TAB PO SCH (09:30)
[2017-01-08] MEDS: MULTIPLE VITAMIN TAB PO SCH (09:30)
[2017-01-08] MEDS: methylPREDNISolone SOD SUCC 125 MG/2 ML VL IV SCH (09:30)
[2017-01-08] MEDS: ASPirin-EC 81 mg tab PO SCH (09:30)
[2017-01-08] MEDS: TOPIRAMATE 25 MG TAB PO SCH (09:30)
[2017-01-08] MEDS ORDERED: HYDROmorphone HCL 2 MG TAB PO PRN (10:30)
[2017-01-08] MEDS ORDERED: MORPHINE SULF 30 mg ER tab PO ONE (10:30)
[2017-01-08] MEDS ORDERED: DOXY-216 PO (10:32)
[2017-01-08] MEDS ORDERED: CIPR-173 PO (10:32)
[2017-01-08] MEDS ORDERED: MIDAZOLAM HCL 1MG/1ML-2 ML VIAL ONE (12:18)
[2017-01-08] MEDS ORDERED: fentaNYL CITRATE 100 MCG/2 ML VL ONE (12:18)
[2017-01-08] MEDS ORDERED: LIDOCAINE VISCOUS 2% 15ML UD ONE ×2 (12:19→12:21)
[2017-01-08] MEDS ORDERED: LIDOCAINE VISCOUS 2% 15ML UD MT ONE ×2 (12:30→12:45)
[2017-01-08] MEDS ORDERED: fentaNYL CITRATE 100 MCG/2 ML VL IV ONE (12:30)
[2017-01-08] MEDS ORDERED: MIDAZOLAM HCL 1MG/1ML-2 ML VIAL IV ONE (12:30)
[2017-01-08] MEDS ORDERED: CIPROFLOXACIN HCL 500 MG TAB PO SCH (13:00)
[2017-01-08 13:07] VITALS: BP 138/83
[2017-01-08] MEDS ORDERED: MORPHINE SULF 30 mg ER tab PO SCH (22:00)
== END 2017-01-08 16:44 | disposition home or self-care (01) | DRG 720 ==
LOC: ER 21:37 → TELE 21:38 → TELE-E-ADS 01-04 12:51 → TELE-WESTW 01-04 16:21 → WEST WING 01-06 17:00
PROVIDERS: ADMIT Internal Medicine; ATTEND Internal Medicine
PROC: B24BZZ4 Ultrasonography of Heart with Aorta, Transesophageal (ICD-10-PCS; principal; 2017-01-08)
DX: A41.9 Sepsis, unspecified organism (principal); J96.20 Acute and chronic respiratory failure, unspecified whether with hypoxia or hypercapnia; I27.2 Other secondary pulmonary hypertension; J44.0 Chronic obstructive pulmonary disease with (acute) lower respiratory infection; J45.901 Unspecified asthma with (acute) exacerbation; F11.20 Opioid dependence, uncomplicated; J44.1 Chronic obstructive pulmonary disease with (acute) exacerbation; E66.01 Morbid (severe) obesity due to excess calories; I10 Essential (primary) hypertension; J20.9 Acute bronchitis, unspecified; R07.89 Other chest pain; F41.9 Anxiety disorder, unspecified; M79.7 Fibromyalgia; G89.4 Chronic pain syndrome; B96.89 Other specified bacterial agents as the cause of diseases classified elsewhere; K76.0 Fatty (change of) liver, not elsewhere classified; T38.0X5A Adverse effect of glucocorticoids and synthetic analogues, initial encounter; K56.7 Ileus, unspecified; Z77.22 Contact with and (suspected) exposure to environmental tobacco smoke (acute) (chronic); Z87.440 Personal history of urinary (tract) infections; Z88.1 Allergy status to other antibiotic agents; Z88.8 Allergy status to other drugs, medicaments and biological substances; Z91.048 Other nonmedicinal substance allergy status; Z68.42 Body mass index [BMI] 45.0-49.9, adult; Z99.81 Dependence on supplemental oxygen; Z93.0 Tracheostomy status; Z82.5 Family history of asthma and other chronic lower respiratory diseases; Z80.3 Family history of malignant neoplasm of breast; Z80.8 Family history of malignant neoplasm of other organs or systems; Z81.8 Family history of other mental and behavioral disorders; Z83.3 Family history of diabetes mellitus; Z82.0 Family history of epilepsy and other diseases of the nervous system; Z84.1 Family history of disorders of kidney and ureter; Z83.79 Family history of other diseases of the digestive system; Z81.1 Family history of alcohol abuse and dependence
CPT/HCPCS: 36415; 71010; 74020; 76705; 80048; 80053; 80202; 81001; 83605; 83735; 84100; 84484; 85007; 85025; 85027; 85610; 87040; 87081; 93005; 93306; 93312; 94640; 96365; 96367; 96375; 96376; J1885; J1956; J2250; J2405; J2543; J7060

== ENCOUNTER 2017-01-24 21:12 | Emergency (ER) | payer MEDICAID ==
[~2017-01-24] VITALS: Ht 162.6 cm; Wt 119.7 kg
[~2017-01-24 21:12] MED LIST changes: +CIPR-173 PO; +DOXY-216 PO; -DOXY1CAP82 PO; -LEVO500T3 PO; -LOPE1SUS PO; -MORP60TA25 PO; -PRED-559 PO
[2017-01-24 22:19] LABS: Basophils # (auto) 0 uL; Basophils % (auto) 0.3 % (0.0-2.0); Eosinophils # (auto) 0.2 uL; Eosinophils % (auto) 1.9 % (0.0-7.0); Hematocrit 36.6 % (36.0-46.0); Lymphocytes # (auto) 2.1 uL; Lymphocytes % (auto) 23.5 % (10.0-50.0); Mean Corpuscular Hemoglobin 30.5 pg (28.0-32.0); Mean Corpuscular Hgb Conc. 32.9 g/dL (32.0-36.0); Mean Corpuscular Volume 92.6 fL (80.0-100.0); Mean Platelet Volume 8.3 fL (7.4-10.4); Monocytes # (auto) 0.7 uL; Monocytes % (auto) 8.5 % (0.0-12.0); Neutrophils # (auto) 5.8 uL; Neutrophils % (auto) 65.8 % (37.0-80.0); Platelet Count (auto) 261 10^3/uL (140-450); Red Cell Distribution Width 15.1 % (11.6-16.0); White Blood Cell 8.8 10^3/uL (4.4-10.8)
[2017-01-24 22:42] LABS: Partial Thromboplastin Time 27.4 sec (22.64-33.71); Prothrombin Time 9.5 sec (9.37-12.3)
[2017-01-24 22:47] LABS: INR 0.87 (0.9-1.15)
[2017-01-24 22:49] LABS: Albumin 3.3 g/dL (3.4-5.0); Anion Gap 10 (5-15); Blood Urea Nitrogen 9 mg/dL (7-18); Calcium 8.7 mg/dL (8.5-10.1); Carbon Dioxide 28 mmol/L (21-32); Chloride 105 mmol/L (98-107); Glucose 84 mg/dL (74-106); Potassium 3.9 mmol/L (3.5-5.1); Sodium 143 mmol/L (136-145)
[2017-01-24 22:51] LABS: Aspartate Aminotransferase 9 U/L (15-37); BUN/Creatinine Ratio 9.1; GFR African American 86 mL/min; GFR Non-African American 71 mL/min
[2017-01-24 22:56] LABS: Alkaline Phosphatase 71 U/L (45-117); Bilirubin, Total 0.2 mg/dL (0.2-1.0); Total Protein 6.8 g/dL (6.4-8.2)
[2017-01-25] MEDS ORDERED: methylPREDNISolone SOD SUCC 125 MG/2 ML VL IV ONE (01:30)
[2017-01-25] MEDS ORDERED: FUROSEMIDE 40 MG/4 ML VIAL IV ONE (01:30)
[2017-01-25] MEDS ORDERED: ONDANSETRON HCL 4 MG/2 ML VIAL ONE (01:34)
[2017-01-25 01:39] VITALS: BP 125/73
[2017-01-25] MEDS ORDERED: ONDANSETRON HCL 4 MG/2 ML VIAL IV ONE (01:45)
== END 2017-01-25 02:34 | disposition home or self-care (01) ==
LOC: ER 21:12
DX: R07.89 Other chest pain (principal); R06.2 Wheezing; R20.0 Anesthesia of skin; R20.2 Paresthesia of skin; R05 Cough; J44.9 Chronic obstructive pulmonary disease, unspecified; I10 Essential (primary) hypertension; G89.4 Chronic pain syndrome; F41.9 Anxiety disorder, unspecified; J80 Acute respiratory distress syndrome; M79.7 Fibromyalgia; Z88.8 Allergy status to other drugs, medicaments and biological substances; Z88.1 Allergy status to other antibiotic agents; Z91.048 Other nonmedicinal substance allergy status; Z87.440 Personal history of urinary (tract) infections
CPT/HCPCS: 36415; 71020; 80053; 84484; 85025; 85610; 85730; 93005; 96374; 96375; 99285; J1940; J2405; J2930

== ENCOUNTER 2017-04-25 01:16 | Emergency (ER) | payer MEDICAID ==
[~2017-04-25] VITALS: Ht 165.1 cm; Wt 127.0 kg
[~2017-04-25 01:16] MED LIST changes: +GABA-497 PO; -GABA300C8 PO
[2017-04-25 02:04] LABS: Basophils # (auto) 0 uL; Basophils % (auto) 0.3 % (0.0-2.0); CONDITION Y; Eosinophils # (auto) 0.1 uL; Eosinophils % (auto) 1.2 % (0.0-7.0); Hematocrit 35.9 % (36.0-46.0); Hemoglobin 11.9 g/dL (12.2-16.2); Lymphocytes # (auto) 1.2 uL; Lymphocytes % (auto) 9.5 % (10.0-50.0); Mean Corpuscular Hemoglobin 30.9 pg (28.0-32.0); Mean Corpuscular Hgb Conc. 33.2 g/dL (32.0-36.0); Mean Corpuscular Volume 93.2 fL (80.0-100.0); Mean Platelet Volume 8.9 fL (7.4-10.4); Monocytes # (auto) 0.7 uL; Monocytes % (auto) 5.3 % (0.0-12.0); Neutrophils # (auto) 10.8 uL; Neutrophils % (auto) 83.7 % (37.0-80.0); Platelet Count (auto) 286 10^3/uL (140-450); Red Cell Distribution Width 13.5 % (11.6-16.0); White Blood Cell 12.9 10^3/uL (4.4-10.8)
[2017-04-25 02:24] LABS: Albumin 3.6 g/dL (3.4-5.0); Anion Gap 11 (5-15); Aspartate Aminotransferase 12 U/L (15-37); BUN/Creatinine Ratio 9.2; Blood Urea Nitrogen 7 mg/dL (7-18); Calcium 8.5 mg/dL (8.5-10.1); Carbon Dioxide 28 mmol/L (21-32); Chloride 103 mmol/L (98-107); GFR African American 116 mL/min; GFR Non-African American 96 mL/min; Glucose 123 mg/dL (74-106); Magnesium 1.9 mg/dL (1.6-2.6); Potassium 3.3 mmol/L (3.5-5.1); Sodium 142 mmol/L (136-145)
[2017-04-25 02:29] LABS: Alkaline Phosphatase 62 U/L (45-117); Bilirubin, Total 0.2 mg/dL (0.2-1.0); Total Protein 6.9 g/dL (6.4-8.2)
[2017-04-25 02:32] LABS: Temperature: 22.5 C (20.0-25.0)
[2017-04-25] MEDS ORDERED: IPRATROPIUM BROM 0.5 MG/2.5ML INH SOL NEB ONE ×2 (05:45→07:15)
[2017-04-25] MEDS ORDERED: ALBUTEROL SULF 2.5 MG/0.5ML(0.5%) NEB SOLN NEB ONE ×2 (05:45→07:15)
[2017-04-25] MEDS ORDERED: diphenhdrAMINE HCL 50 MG/1 ML VL IV ONE (07:15)
[2017-04-25] MEDS ORDERED: POTASSIUM CHL 10% (20 MEQ/15ML) 15ml ORAL SOLN PO ONE (07:15)
[2017-04-25] MEDS ORDERED: MORPHINE SULFATE 4 MG/ML SYRG IM ONE (07:15)
[2017-04-25 09:38] LABS: Urine Bilirubin Negative (Negative); Urine Blood Negative /uL (Negative); Urine Color Yellow (Yellow); Urine Glucose Normal (Normal); Urine Ketone Negative (Negative); Urine Nitrite Negative (Negative); Urine RBC 1 /hpf (0 - 4); Urine Urobilinogen Normal (Negative); Urine pH 6.5 (5.0-8.0)
[2017-04-25 09:50] VITALS: BP 126/57
== END 2017-04-25 10:51 | disposition home or self-care (01) ==
LOC: ER 01:20
DX: J45.909 Unspecified asthma, uncomplicated (principal); E87.6 Hypokalemia; G89.4 Chronic pain syndrome; E66.01 Morbid (severe) obesity due to excess calories; Z68.42 Body mass index [BMI] 45.0-49.9, adult; J44.9 Chronic obstructive pulmonary disease, unspecified; I10 Essential (primary) hypertension; Z87.440 Personal history of urinary (tract) infections; Z88.1 Allergy status to other antibiotic agents; Z79.899 Other long term (current) drug therapy; Z79.82 Long term (current) use of aspirin
CPT/HCPCS: 36415; 51702; 71020; 80053; 81001; 83735; 83880; 84484; 84702; 85025; 93005; 94640; 96372; 96374; 99285; J1200; J2270

== ENCOUNTER 2017-07-05 23:30 | Emergency (ER) | payer MEDICAID ==
[~2017-07-05] VITALS: Ht 165.1 cm; Wt 117.9 kg
[2017-07-06 00:08] LABS: Urine Bacteria MANY /hpf (None Seen); Urine Blood Negative /uL (Negative); Urine Mucus FEW (None Seen); Urine Specific Gravity 1.015 (1.001-1.035); Urine WBC 66 /hpf (0 - 5)
[2017-07-06 00:15] LABS: Basophils # (auto) 0 uL; Basophils % (auto) 0.4 % (0.0-2.0); Eosinophils # (auto) 0.1 uL; Eosinophils % (auto) 1.5 % (0.0-7.0); Hematocrit 35.7 % (36.0-46.0); Hemoglobin 11.6 g/dL (12.2-16.2); Lymphocytes # (auto) 2.3 uL; Mean Corpuscular Hemoglobin 29.5 pg (28.0-32.0); Mean Corpuscular Hgb Conc. 32.5 g/dL (32.0-36.0); Mean Corpuscular Volume 90.7 fL (80.0-100.0); Monocytes # (auto) 0.6 uL; Monocytes % (auto) 8.3 % (0.0-12.0); Neutrophils # (auto) 4.4 uL; Neutrophils % (auto) 58.8 % (37.0-80.0); Nucleated Red Blood Cells % 0.1 %; Platelet Count (auto) 248 10^3/uL (140-450); Red Blood Cells 3.93 10^6/uL (4.0-5.20); White Blood Cell 7.4 10^3/uL (4.4-10.8)
[2017-07-06 00:26] LABS: INR 0.93 (0.9-1.15); Partial Thromboplastin Time 28.9 sec (22.64-33.71); Prothrombin Time 10.1 sec (9.37-12.3)
[2017-07-06 00:29] LABS: Alanine Aminotransferase 24 U/L (13-56); Albumin 3.5 g/dL (3.4-5.0); Anion Gap 13 (5-15); Aspartate Aminotransferase 13 U/L (15-37); BUN/Creatinine Ratio 12.5; Blood Urea Nitrogen 13 mg/dL (7-18); Calcium 8.3 mg/dL (8.5-10.1); Carbon Dioxide 22 mmol/L (21-32); Chloride 102 mmol/L (98-107); GFR African American 81 mL/min; GFR Non-African American 67 mL/min; Glucose 177 mg/dL (74-106); Potassium 3.1 mmol/L (3.5-5.1); Sodium 137 mmol/L (136-145)
[2017-07-06 00:34] LABS: Alkaline Phosphatase 56 U/L (45-117); Bilirubin, Total 0.2 mg/dL (0.2-1.0); Total Protein 6.7 g/dL (6.4-8.2)
[2017-07-06] MEDS ORDERED: NITROFURANTOIN (MONO) 100 mg CAP PO ONE (01:15)
[2017-07-06] MEDS ORDERED: POTASSIUM CHL 20 Meq TABLET PO ONE ×2 (01:55→02:15)
[2017-07-06 01:59] VITALS: BP 100/61
== END 2017-07-06 02:20 | disposition home or self-care (01) ==
LOC: ER 23:31
DX: N39.0 Urinary tract infection, site not specified (principal); E66.01 Morbid (severe) obesity due to excess calories; I11.0 Hypertensive heart disease with heart failure; I50.9 Heart failure, unspecified; J44.9 Chronic obstructive pulmonary disease, unspecified; Z68.41 Body mass index [BMI] 40.0-44.9, adult; Z88.1 Allergy status to other antibiotic agents
CPT/HCPCS: 36415; 71020; 80053; 81001; 81025; 84484; 84702; 85025; 85610; 85730; 93005

== ENCOUNTER 2017-08-28 16:36 | Emergency (ER) | payer MEDICAID ==
[~2017-08-28] VITALS: Ht 165.1 cm; Wt 117.9 kg
[~2017-08-28 16:36] MED LIST changes: -GABA-497 PO; +GABA300C10 PO
[2017-08-28 18:37] LABS: Basophils # (auto) 0 uL; Basophils % (auto) 0.4 % (0.0-2.0); Eosinophils # (auto) 0.1 uL; Hematocrit 36.1 % (36.0-46.0); Hemoglobin 11.9 g/dL (12.2-16.2); Lymphocytes # (auto) 1.9 uL; Lymphocytes % (auto) 25.8 % (10.0-50.0); Mean Corpuscular Hemoglobin 29.8 pg (28.0-32.0); Mean Corpuscular Volume 90.1 fL (80.0-100.0); Monocytes # (auto) 1.2 uL; Monocytes % (auto) 16.6 % (0.0-12.0); Neutrophils % (auto) 55.2 % (37.0-80.0); Nucleated Red Blood Cells % 0.1 %; Platelet Count (auto) 259 10^3/uL (140-450); Red Blood Cells 4.01 10^6/uL (4.0-5.20); Red Cell Distribution Width 14.6 % (11.8-14.3); White Blood Cell 7.2 10^3/uL (4.4-10.8)
[2017-08-28 18:40] LABS: BUN/Creatinine Ratio 14.9; Potassium 4.2 mmol/L (3.5-5.1)
[2017-08-28 18:41] LABS: Albumin 3.5 g/dL (3.4-5.0)
[2017-08-28 18:42] LABS: Urine Bacteria MOD /hpf (None Seen); Urine Blood Negative /uL (Negative); Urine Mucus FEW (None Seen); Urine Specific Gravity 1.014 (1.001-1.035); Urine WBC 21 /hpf (0 - 5)
[2017-08-28 18:43] LABS: Bilirubin, Total 0.3 mg/dL (0.2-1.0); Total Protein 7.1 g/dL (6.4-8.2)
[2017-08-29] MEDS ORDERED: SODIUM CHLORIDE 0.9% 1,000 ML IV ONE (06:51)
[2017-08-29] MEDS ORDERED: cefTRIAXone 1GM/10ml IVPUSH 10 ML IV ONE (07:00)
[2017-08-29] MEDS ORDERED: KETOROLAC TROMETH 30 MG/ML 1ML VIAL IV ONE (07:00)
[2017-08-29] MEDS ORDERED: ONDANSETRON HCL 4 MG/2 ML VIAL IV ONE (07:15)
[2017-08-29 11:01] VITALS: BP 107/69
== END 2017-08-29 11:41 | disposition home or self-care (01) ==
LOC: ER 16:36
DX: J20.9 Acute bronchitis, unspecified (principal); N39.0 Urinary tract infection, site not specified; I11.0 Hypertensive heart disease with heart failure; I50.9 Heart failure, unspecified; J44.9 Chronic obstructive pulmonary disease, unspecified
CPT/HCPCS: 36415; 71010; 80053; 81001; 83735; 84443; 85025; 87400; 93005; 94761; 96361; 96374; 96375; 99285; J1885; J2405; J7030

== ENCOUNTER 2017-12-25 00:11 | Emergency (ER) | payer MEDICAID ==
[~2017-12-25] VITALS: Ht 165.1 cm; Wt 119.3 kg
[2017-12-25 02:36] LABS: Basophils # (auto) 0 uL; Basophils % (auto) 0.3 % (0.0-2.0); Eosinophils # (auto) 0.1 uL; Eosinophils % (auto) 1.1 % (0.0-7.0); Hemoglobin 12.7 g/dL (12.2-16.2); Lymphocytes # (auto) 2.3 uL; Mean Corpuscular Hemoglobin 30.4 pg (28.0-32.0); Mean Corpuscular Hgb Conc. 33.3 g/dL (32.0-36.0); Mean Corpuscular Volume 91.1 fL (80.0-100.0); Monocytes # (auto) 1.2 uL; Monocytes % (auto) 13.1 % (0.0-12.0); Neutrophils # (auto) 5.5 uL; Neutrophils % (auto) 60.5 % (37.0-80.0); Nucleated Red Blood Cells % 0.1 %; Platelet Count (auto) 272 10^3/uL (140-450); Red Blood Cells 4.17 10^6/uL (4.0-5.20); Red Cell Distribution Width 14.1 % (11.8-14.3)
[2017-12-25 02:58] LABS: Alanine Aminotransferase 28 U/L (13-56); Albumin 3.9 g/dL (3.4-5.0); Alkaline Phosphatase 84 U/L (45-117); Anion Gap 8 (5-15); Aspartate Aminotransferase 11 U/L (15-37); BUN/Creatinine Ratio 10.6; Bilirubin, Total 0.2 mg/dL (0.2-1.0); Blood Urea Nitrogen 9 mg/dL (7-18); Calcium 8.7 mg/dL (8.5-10.1); Carbon Dioxide 29 mmol/L (21-32); Chloride 100 mmol/L (98-107); GFR African American 102 mL/min; GFR Non-African American 84 mL/min; Glucose 84 mg/dL (74-106); Magnesium 2.5 mg/dL (1.6-2.6); Potassium 3.5 mmol/L (3.5-5.1); Sodium 137 mmol/L (136-145); Total Protein 7.5 g/dL (6.4-8.2)
[2017-12-25 03:21] LABS: Urine Bacteria NONE SEEN /hpf (None Seen); Urine Blood 1+ /uL (Negative); Urine Mucus FEW (None Seen); Urine Specific Gravity 1.014 (1.001-1.035); Urine WBC 4 /hpf (0 - 5)
[2017-12-25] MEDS ORDERED: ALBUTEROL SULF 2.5 MG/0.5ML(0.5%) NEB SOLN NEB ONE (08:15)
[2017-12-25] MEDS ORDERED: IPRATROPIUM BROM 0.5 MG/2.5ML INH SOL NEB ONE (08:15)
[2017-12-25] MEDS ORDERED: cefTRIAXone 1GM/10ml IVPUSH 10 ML IV ONE (08:15)
[2017-12-25 10:59] VITALS: BP 123/68
[2017-12-25] MEDS ORDERED: PROMETHAZINE HCL 25 MG/ML 1ML IV ONE (12:15)
[2017-12-25] MEDS ORDERED: KETOROLAC TROMETH 30 MG/ML 1ML VIAL IV ONE (12:15)
== END 2017-12-25 12:33 | disposition home or self-care (01) ==
LOC: ER 00:13
DX: J20.9 Acute bronchitis, unspecified (principal); M54.5 Low back pain; E66.09 Other obesity due to excess calories; I11.0 Hypertensive heart disease with heart failure; I50.9 Heart failure, unspecified; J44.9 Chronic obstructive pulmonary disease, unspecified; Z88.1 Allergy status to other antibiotic agents
CPT/HCPCS: 36415; 71045; 80053; 81001; 83735; 84484; 85025; 93005; 94640; 96374

== ENCOUNTER 2018-04-04 12:45 | Inpatient (IN) | payer MEDICAID ==
[~2018-04-04] VITALS: Ht 167.6 cm; Wt 127.5 kg
[2018-04-04] MEDS ORDERED: ASPirin 81 mg TAB PO ONE (13:30)
[2018-04-04] MEDS ORDERED: MORPHINE SULFATE 4 MG/ML SYR/VIAL IV ONE (13:30)
[2018-04-04] MEDS ORDERED: ONDANSETRON HCL 4 MG/2 ML VIAL IV ONE (13:30)
[2018-04-04] MEDS ORDERED: diphenhdrAMINE HCL 50 MG/1 ML VL IV ONE (14:00)
[2018-04-04] MEDS ORDERED: diphenhdrAMINE HCL 50 MG/1 ML VL ONE ×2 (14:01→16:15)
[2018-04-04 14:03] LABS: Basophils # (auto) 0 uL; Basophils % (auto) 0.2 % (0.0-2.0); Eosinophils # (auto) 0 uL; Eosinophils % (auto) 0.1 % (0.0-7.0); Hematocrit 35.8 % (36.0-46.0); Hemoglobin 12.2 g/dL (12.2-16.2); Lymphocytes # (auto) 0.9 uL; Lymphocytes % (auto) 5.4 % (10.0-50.0); Mean Corpuscular Hemoglobin 30.6 pg (28.0-32.0); Mean Corpuscular Volume 89.8 fL (80.0-100.0); Monocytes # (auto) 1.4 uL; Monocytes % (auto) 8.3 % (0.0-12.0); Neutrophils # (auto) 14.1 uL; Platelet Count (auto) 267 10^3/uL (140-450); Red Blood Cells 3.99 10^6/uL (4.0-5.20); Red Cell Distribution Width 13.8 % (11.8-14.3); White Blood Cell 16.4 10^3/uL (4.4-10.8)
[2018-04-04 14:15] LABS: INR 0.97 (0.9-1.15); Partial Thromboplastin Time 26.4 sec (23.78-33.04); Prothrombin Time 10.4 sec (9.27-12.13)
[2018-04-04] MEDS ORDERED: HYDROcodone-ACET 5/325MG TAB PO PRN (14:30)
[2018-04-04] MEDS ORDERED: MORPHINE SULF INJ 2 MG/ML SYRINGE 1ML IV PRN (14:30)
[2018-04-04] MEDS ORDERED: NITROGLYCERIN 0.4 MG SL TAB SL PRN (14:30)
[2018-04-04] MEDS ORDERED: ALBUTEROL SULF 2.5 MG/0.5ML(0.5%) NEB SOLN NEB PRN ×2 (14:30→15:15)
[2018-04-04] MEDS ORDERED: FIORINAL PO PRN (14:30)
[2018-04-04] MEDS ORDERED: TEMAZEPAM 15 MG CAP PO PRN (14:30)
[2018-04-04] MEDS ORDERED: ACETAMINOPHEN 500 MG TAB PO PRN (14:30)
[2018-04-04] MEDS ORDERED: MORPHINE SULFATE 4 MG/ML SYR/VIAL IV PRN (14:30)
[2018-04-04] MEDS ORDERED: CARVEDILOL 3.125 MG TAB PO ONE (15:00)
[2018-04-04] MEDS ORDERED: LACTULOSE 20Gm/30ML SOLN PO PRN (15:15)
[2018-04-04 15:22] LABS: Alanine Aminotransferase 30 U/L (13-56); Albumin 3.6 g/dL (3.4-5.0); Alkaline Phosphatase 120 U/L (45-117); Anion Gap 5 (5-15); Aspartate Aminotransferase 42 U/L (15-37); BUN/Creatinine Ratio 11.7; Bilirubin, Total 0.4 mg/dL (0.2-1.0); Blood Urea Nitrogen 11 mg/dL (7-18); Calcium 8.6 mg/dL (8.5-10.1); Carbon Dioxide 28 mmol/L (21-32); Chloride 104 mmol/L (98-107); GFR African American 90 mL/min; GFR Non-African American 74 mL/min; Glucose 145 mg/dL (74-106); Magnesium 2.5 mg/dL (1.6-2.6); Sodium 137 mmol/L (136-145); Total Protein 7.2 g/dL (6.4-8.2)
[2018-04-04] MEDS: ENOXAPARIN SOD 40 MG/0.4 ML SYRINGE SC SCH (15:41)
[2018-04-04] MEDS: LEVOFLOXACIN 500MG 100 ML IV SCH (15:54)
[2018-04-04] MEDS: FUROSEMIDE 40 MG/4 ML VIAL IV SCH (16:00)
[2018-04-04] MEDS: diphenhdrAMINE HCL 50 MG/1 ML VL IV PRN (16:27)
[2018-04-04] MEDS: CLINDAMYCIN 600MG IV 50 ML IV SCH (17:20)
[2018-04-04] MEDS: MORPHINE SULFATE 4 MG/ML SYR/VIAL IV PRN (17:20)
[2018-04-04] MEDS ORDERED: ALBUTEROL SULF 2.5 MG/0.5ML(0.5%) NEB SOLN NEB SCH (18:00)
[2018-04-04] MEDS ORDERED: IPRATROPIUM BROM 0.5 MG/2.5ML INH SOL NEB SCH (18:00)
[2018-04-04] MEDS: IPRATROPIUM BROM 0.5 MG/2.5ML INH SOL NEB SCH (19:14)
[2018-04-04] MEDS: ALBUTEROL SULF 2.5 MG/0.5ML(0.5%) NEB SOLN NEB SCH (19:14)
[2018-04-04 20:00] VITALS: BP 140/80
[2018-04-04 22:00] VITALS: BP 122/66
[2018-04-04] MEDS ORDERED: PATIENTS OWN MEDICATION (Baclofen 1 TAB) PO SCH (22:00)
[2018-04-04] MEDS ORDERED: MORPHINE SULF 15mg ER tab PO SCH (22:00)
[2018-04-04] MEDS ORDERED: PATIENTS OWN MEDICATION (Duloxetine Hcl (Cymbalta) 60 MG) PO SCH (22:00)
[2018-04-04] MEDS ORDERED: TOPIRAMATE PO SCH (22:00)
[2018-04-04] MEDS ORDERED: GABAPENTIN 900 MG PO SCH (22:00)
[2018-04-04] MEDS ORDERED: PATIENTS OWN MEDICATION (Morphine Sulfate 1 TAB) PO SCH (22:00)
[2018-04-04] MEDS: GABAPENTIN 300 MG CAP PO SCH (22:14)
[2018-04-04] MEDS: DULoxetine HCL 30 MG CAP PO SCH (22:14)
[2018-04-04] MEDS: MORPHINE SULF 30 mg ER tab PO SCH (22:16)
[2018-04-04] MEDS: TOPIRAMATE 25 MG TAB PO SCH (22:17)
[2018-04-04] MEDS: BACLOFEN 10 MG TAB PO SCH (22:18)
[2018-04-04] MEDS: CARVEDILOL 3.125 MG TAB PO SCH (22:18)
[2018-04-04 22:28] VITALS: BP 122/68
[2018-04-05] MEDS: IPRATROPIUM BROM 0.5 MG/2.5ML INH SOL NEB SCH ×4 (00:50→19:39)
[2018-04-05] MEDS: ALBUTEROL SULF 2.5 MG/0.5ML(0.5%) NEB SOLN NEB SCH ×4 (00:50→19:39)
[2018-04-05] MEDS: CLINDAMYCIN 600MG IV 50 ML IV SCH (01:21)
[2018-04-05] MEDS: MORPHINE SULFATE 4 MG/ML SYR/VIAL IV PRN ×4 (01:22→18:21)
[2018-04-05] MEDS: diphenhdrAMINE HCL 50 MG/1 ML VL IV PRN ×4 (01:48→18:21)
[2018-04-05 05:00] VITALS: BP 109/58
[2018-04-05] MEDS: BACLOFEN 10 MG TAB PO SCH ×3 (06:00→21:45)
[2018-04-05] MEDS: GABAPENTIN 300 MG CAP PO SCH ×3 (06:00→21:45)
[2018-04-05 07:15] LABS: Basophils # (auto) 0 uL; Basophils % (auto) 0.2 % (0.0-2.0); Eosinophils # (auto) 0.1 uL; Eosinophils % (auto) 0.6 % (0.0-7.0); Hemoglobin 10.8 g/dL (12.2-16.2); Lymphocytes # (auto) 1.9 uL; Lymphocytes % (auto) 19.6 % (10.0-50.0); Mean Corpuscular Hemoglobin 30.3 pg (28.0-32.0); Mean Corpuscular Hgb Conc. 33.7 g/dL (32.0-36.0); Monocytes # (auto) 1.3 uL; Monocytes % (auto) 14.1 % (0.0-12.0); Neutrophils # (auto) 6.3 uL; Neutrophils % (auto) 65.5 % (37.0-80.0); Platelet Count (auto) 235 10^3/uL (140-450); Red Blood Cells 3.56 10^6/uL (4.0-5.20); Red Cell Distribution Width 14.1 % (11.8-14.3); White Blood Cell 9.6 10^3/uL (4.4-10.8)
[2018-04-05 09:00] VITALS: BP 111/70
[2018-04-05] MEDS ORDERED: IOHEXOL 350 MG/ML 100ML IJ ONE (09:10)
[2018-04-05] MEDS: LEVOFLOXACIN 500MG 100 ML IV SCH ×2 (10:00→18:38)
[2018-04-05] MEDS ORDERED: ENOXAPARIN SOD 40 MG/0.4 ML SYRINGE SC SCH ×2 (10:00)
[2018-04-05] MEDS: PANTOPRAZOLE 40 MG TAB PO SCH (11:36)
[2018-04-05] MEDS: MORPHINE SULF 30 mg ER tab PO SCH ×2 (11:36→21:46)
[2018-04-05] MEDS: TOPIRAMATE 25 MG TAB PO SCH (11:36)
[2018-04-05] MEDS: CARVEDILOL 3.125 MG TAB PO SCH ×3 (11:37→21:46)
[2018-04-05] MEDS: ASPirin 81 mg TAB PO SCH (11:37)
[2018-04-05] MEDS: ENOXAPARIN SOD 40 MG/0.4 ML SYRINGE SC SCH (11:38)
[2018-04-05] MEDS: DULoxetine HCL 30 MG CAP PO SCH ×2 (11:38→21:45)
[2018-04-05 12:52] VITALS: BP 114/61
[2018-04-05] MEDS: FUROSEMIDE 40 MG/4 ML VIAL IV SCH (14:22)
[2018-04-05 16:33] VITALS: BP 126/71
[2018-04-05 19:48] LABS: Alcohol, Urine < 3.0 mg/dL (0-5); Amphetamine Screen, Urine NEGATIVE (NEGATIVE); Barbiturate Scree,Urine NEGATIVE (NEGATIVE); Benzodiazephine Screen, Urine NEGATIVE (NEGATIVE); Cannabinoid Screen, Urine NEGATIVE (NEGATIVE); Cocaine Screen, Urine NEGATIVE (NEGATIVE); Opiate Scree,Urine POSITIVE (NEGATIVE); Phencyclidine Screen, Urine NEGATIVE (NEGATIVE)
[2018-04-05 22:00] VITALS: BP 104/61
[2018-04-06] MEDS: ALBUTEROL SULF 2.5 MG/0.5ML(0.5%) NEB SOLN NEB SCH ×4 (01:28→20:02)
[2018-04-06] MEDS: IPRATROPIUM BROM 0.5 MG/2.5ML INH SOL NEB SCH ×4 (01:28→20:02)
[2018-04-06] MEDS: diphenhdrAMINE HCL 50 MG/1 ML VL IV PRN ×4 (04:26→20:35)
[2018-04-06] MEDS: MORPHINE SULFATE 4 MG/ML SYR/VIAL IV PRN ×4 (04:26→20:35)
[2018-04-06 05:31] VITALS: BP 106/60
[2018-04-06 05:31] LABS: Basophils # (auto) 0.1 uL; Basophils % (auto) 0.7 % (0.0-2.0); Eosinophils # (auto) 0.2 uL; Eosinophils % (auto) 3.3 % (0.0-7.0); Hematocrit 35.5 % (36.0-46.0); Lymphocytes # (auto) 1.6 uL; Lymphocytes % (auto) 22.4 % (10.0-50.0); Mean Corpuscular Hemoglobin 30.6 pg (28.0-32.0); Mean Corpuscular Hgb Conc. 33.8 g/dL (32.0-36.0); Mean Corpuscular Volume 90.5 fL (80.0-100.0); Monocytes # (auto) 0.9 uL; Monocytes % (auto) 12.7 % (0.0-12.0); Neutrophils # (auto) 4.4 uL; Neutrophils % (auto) 60.9 % (37.0-80.0); Platelet Count (auto) 259 10^3/uL (140-450); Red Blood Cells 3.92 10^6/uL (4.0-5.20); Red Cell Distribution Width 13.4 % (11.8-14.3); White Blood Cell 7.3 10^3/uL (4.4-10.8)
[2018-04-06] MEDS: BACLOFEN 10 MG TAB PO SCH ×3 (05:34→21:40)
[2018-04-06] MEDS: GABAPENTIN 300 MG CAP PO SCH ×3 (05:34→21:40)
[2018-04-06 05:58] LABS: BUN/Creatinine Ratio 15.2; Calcium 8.6 mg/dL (8.5-10.1)
[2018-04-06] MEDS: FUROSEMIDE 40 MG/4 ML VIAL IV SCH (08:53)
[2018-04-06] MEDS: ASPirin 81 mg TAB PO SCH (08:53)
[2018-04-06] MEDS: LEVOFLOXACIN 500MG 100 ML IV SCH (08:53)
[2018-04-06] MEDS: PANTOPRAZOLE 40 MG TAB PO SCH (08:54)
[2018-04-06] MEDS: DULoxetine HCL 30 MG CAP PO SCH ×2 (08:54→21:40)
[2018-04-06] MEDS: MORPHINE SULF 30 mg ER tab PO SCH ×2 (08:55→21:41)
[2018-04-06] MEDS: ENOXAPARIN SOD 40 MG/0.4 ML SYRINGE SC SCH (08:55)
[2018-04-06] MEDS: CARVEDILOL 3.125 MG TAB PO SCH ×2 (08:55→21:40)
[2018-04-06] MEDS ORDERED: methylPREDNISolone SOD SUCC 40 MG/ML VL IV SCH (09:15)
[2018-04-06 12:30] VITALS: BP 103/59
[2018-04-06] MEDS: SODIUM FERR GLUC 62.5MG/5ML 125 MG in SODIUM CHL 0.9% 100 ML IV SCH (12:36)
[2018-04-06 17:02] VITALS: BP 112/58
[2018-04-06 20:00] VITALS: BP 110/54
[2018-04-06] MEDS: methylPREDNISolone SOD SUCC 40 MG/ML VL IV SCH (21:39)
[2018-04-06 22:18] VITALS: BP 110/54
[2018-04-07] MEDS: IPRATROPIUM BROM 0.5 MG/2.5ML INH SOL NEB SCH ×5 (00:55→22:27)
[2018-04-07] MEDS: ALBUTEROL SULF 2.5 MG/0.5ML(0.5%) NEB SOLN NEB SCH ×5 (00:55→22:27)
[2018-04-07] MEDS: MORPHINE SULFATE 4 MG/ML SYR/VIAL IV PRN ×4 (01:21→20:44)
[2018-04-07] MEDS: diphenhdrAMINE HCL 50 MG/1 ML VL IV PRN ×4 (01:21→20:44)
[2018-04-07 05:22] VITALS: BP 118/68
[2018-04-07 05:54] LABS: Basophils # (auto) 0 uL; Eosinophils # (auto) 0 uL; Hematocrit 35.8 % (36.0-46.0); Lymphocytes # (auto) 0.8 uL; Lymphocytes % (auto) 5.1 % (10.0-50.0); Mean Corpuscular Hemoglobin 30.3 pg (28.0-32.0); Mean Corpuscular Hgb Conc. 33.7 g/dL (32.0-36.0); Mean Corpuscular Volume 89.9 fL (80.0-100.0); Monocytes # (auto) 0.6 uL; Monocytes % (auto) 3.5 % (0.0-12.0); Neutrophils # (auto) 14.8 uL; Neutrophils % (auto) 91.4 % (37.0-80.0); Platelet Count (auto) 323 10^3/uL (140-450); Red Blood Cells 3.98 10^6/uL (4.0-5.20); Red Cell Distribution Width 13.9 % (11.8-14.3); White Blood Cell 16.2 10^3/uL (4.4-10.8)
[2018-04-07 06:08] LABS: BUN/Creatinine Ratio 15.6; Calcium 9.1 mg/dL (8.5-10.1); Potassium 3.9 mmol/L (3.5-5.1)
[2018-04-07] MEDS: methylPREDNISolone SOD SUCC 40 MG/ML VL IV SCH ×3 (06:24→21:46)
[2018-04-07] MEDS: GABAPENTIN 300 MG CAP PO SCH ×3 (06:25→21:48)
[2018-04-07] MEDS: BACLOFEN 10 MG TAB PO SCH ×3 (06:25→21:48)
[2018-04-07 09:00] VITALS: BP 123/82
[2018-04-07] MEDS: FUROSEMIDE 40 MG/4 ML VIAL IV SCH ×2 (10:33→20:15)
[2018-04-07] MEDS: ENOXAPARIN SOD 40 MG/0.4 ML SYRINGE SC SCH (10:33)
[2018-04-07] MEDS: LEVOFLOXACIN 500MG 100 ML IV SCH (10:34)
[2018-04-07] MEDS: CARVEDILOL 3.125 MG TAB PO SCH ×2 (10:35→21:47)
[2018-04-07] MEDS: DULoxetine HCL 30 MG CAP PO SCH ×2 (10:35→21:48)
[2018-04-07] MEDS: PANTOPRAZOLE 40 MG TAB PO SCH (10:35)
[2018-04-07] MEDS: ASPirin 81 mg TAB PO SCH (10:36)
[2018-04-07] MEDS: MORPHINE SULF 30 mg ER tab PO SCH ×2 (10:36→21:48)
[2018-04-07] MEDS: PROMETHAZINE HCL 25 MG/ML 1ML IV PRN (11:14)
[2018-04-07 13:00] VITALS: BP 135/76
[2018-04-07 17:00] VITALS: BP 116/77
[2018-04-07] MEDS ORDERED: diphenhdrAMINE HCL 50 MG/1 ML VL IV ONE (17:45)
[2018-04-07] MEDS: SODIUM FERR GLUC 62.5MG/5ML 125 MG in SODIUM CHL 0.9% 100 ML IV SCH (18:18)
[2018-04-07] MEDS ORDERED: PROMETHAZINE W/CODEINE 5 ML ORAL SYRUP PO PRN (19:00)
[2018-04-07 20:00] VITALS: BP 131/63
[2018-04-07] MEDS: CLINDAMYCIN 300MG IV 50 ML IV SCH (21:47)
[2018-04-07 21:58] VITALS: BP 131/63
[2018-04-08] VITALS (7 sets, daily range): BP systolic 122–135; BP diastolic 66–84
[2018-04-08] MEDS: ALBUTEROL SULF 2.5 MG/0.5ML(0.5%) NEB SOLN NEB SCH ×6 (02:39→22:50)
[2018-04-08] MEDS: IPRATROPIUM BROM 0.5 MG/2.5ML INH SOL NEB SCH ×6 (02:39→22:50)
[2018-04-08] MEDS: diphenhdrAMINE HCL 50 MG/1 ML VL IV PRN ×4 (02:50→17:09)
[2018-04-08] MEDS: MORPHINE SULFATE 4 MG/ML SYR/VIAL IV PRN ×4 (02:50→17:09)
[2018-04-08] MEDS: FUROSEMIDE 40 MG/4 ML VIAL IV SCH (05:53)
[2018-04-08] MEDS: CLINDAMYCIN 300MG IV 50 ML IV SCH (05:53)
[2018-04-08] MEDS: GABAPENTIN 300 MG CAP PO SCH ×3 (05:54→21:48)
[2018-04-08] MEDS: BACLOFEN 10 MG TAB PO SCH ×3 (05:54→21:48)
[2018-04-08] MEDS: methylPREDNISolone SOD SUCC 40 MG/ML VL IV SCH ×3 (05:54→21:47)
[2018-04-08 06:08] LABS: Basophils # (auto) 0 uL; Eosinophils # (auto) 0 uL; Hematocrit 35.4 % (36.0-46.0); Hemoglobin 11.8 g/dL (12.2-16.2); Lymphocytes # (auto) 1.1 uL; Lymphocytes % (auto) 5.3 % (10.0-50.0); Mean Corpuscular Hemoglobin 29.9 pg (28.0-32.0); Mean Corpuscular Hgb Conc. 33.3 g/dL (32.0-36.0); Mean Corpuscular Volume 89.8 fL (80.0-100.0); Monocytes # (auto) 1.2 uL; Monocytes % (auto) 5.8 % (0.0-12.0); Neutrophils # (auto) 18.2 uL; Neutrophils % (auto) 88.9 % (37.0-80.0); Platelet Count (auto) 356 10^3/uL (140-450); Red Blood Cells 3.95 10^6/uL (4.0-5.20); Red Cell Distribution Width 14.2 % (11.8-14.3); White Blood Cell 20.5 10^3/uL (4.4-10.8)
[2018-04-08 06:29] LABS: BUN/Creatinine Ratio 20.7; Potassium 3.8 mmol/L (3.5-5.1)
[2018-04-08] MEDS ORDERED: DEXTROSE (50%) 50ML SYRG IV PRN (08:45)
[2018-04-08] MEDS: LEVOFLOXACIN 500MG 100 ML IV SCH (09:20)
[2018-04-08] MEDS: ENOXAPARIN SOD 40 MG/0.4 ML SYRINGE SC SCH (09:21)
[2018-04-08] MEDS: POTASSIUM CHL 20 Meq TABLET PO SCH (09:21)
[2018-04-08] MEDS: DULoxetine HCL 30 MG CAP PO SCH ×2 (09:21→21:47)
[2018-04-08] MEDS: PANTOPRAZOLE 40 MG TAB PO SCH (09:22)
[2018-04-08] MEDS: CARVEDILOL 3.125 MG TAB PO SCH ×2 (09:22→21:49)
[2018-04-08] MEDS: ASPirin 81 mg TAB PO SCH (09:24)
[2018-04-08] MEDS: MORPHINE SULF 30 mg ER tab PO SCH ×2 (09:24→22:31)
[2018-04-08] MEDS: ACCU-CHEK COMFORT CURVE STRIP VI SCH ×3 (11:06→21:48)
[2018-04-08] MEDS: InsuLIN REG 1unit/0.01ml Soln (100units/ml) SC SCH ×3 (11:06→22:02)
[2018-04-08] MEDS: LORazepam 0.5 MG TAB PO PRN (22:32)
[2018-04-09] MEDS: ALBUTEROL SULF 2.5 MG/0.5ML(0.5%) NEB SOLN NEB SCH ×6 (02:43→22:13)
[2018-04-09] MEDS: IPRATROPIUM BROM 0.5 MG/2.5ML INH SOL NEB SCH ×6 (02:43→22:13)
[2018-04-09] MEDS: diphenhdrAMINE HCL 50 MG/1 ML VL IV PRN ×5 (03:00→21:35)
[2018-04-09] MEDS: MORPHINE SULFATE 4 MG/ML SYR/VIAL IV PRN ×5 (03:00→21:37)
[2018-04-09 04:45] VITALS: BP 117/70
[2018-04-09] MEDS: BACLOFEN 10 MG TAB PO SCH ×3 (06:24→21:33)
[2018-04-09] MEDS: methylPREDNISolone SOD SUCC 40 MG/ML VL IV SCH ×3 (06:24→21:32)
[2018-04-09] MEDS: GABAPENTIN 300 MG CAP PO SCH ×3 (06:24→21:33)
[2018-04-09] MEDS: ACCU-CHEK COMFORT CURVE STRIP VI SCH ×4 (06:33→21:37)
[2018-04-09] MEDS: InsuLIN REG 1unit/0.01ml Soln (100units/ml) SC SCH ×4 (06:33→21:51)
[2018-04-09 07:52] VITALS: BP 121/91
[2018-04-09 08:00] VITALS: BP 110/68
[2018-04-09] MEDS: LEVOFLOXACIN 500MG 100 ML IV SCH (10:17)
[2018-04-09] MEDS: FUROSEMIDE 40 MG TAB PO SCH (10:22)
[2018-04-09] MEDS: DULoxetine HCL 30 MG CAP PO SCH ×2 (10:22→21:32)
[2018-04-09] MEDS: POTASSIUM CHL 20 Meq TABLET PO SCH (10:23)
[2018-04-09] MEDS: CARVEDILOL 3.125 MG TAB PO SCH ×2 (10:23→21:34)
[2018-04-09] MEDS: PANTOPRAZOLE 40 MG TAB PO SCH (10:23)
[2018-04-09] MEDS: ENOXAPARIN SOD 40 MG/0.4 ML SYRINGE SC SCH ×2 (10:24→21:32)
[2018-04-09] MEDS: ASPirin 81 mg TAB PO SCH (10:25)
[2018-04-09] MEDS: MORPHINE SULF 30 mg ER tab PO SCH ×2 (10:41→22:32)
[2018-04-09 10:53] LABS: Hematocrit 34.8 % (36.0-46.0); Hemoglobin 11.3 g/dL (12.2-16.2); Mean Corpuscular Hemoglobin 29.4 pg (28.0-32.0); Mean Corpuscular Hgb Conc. 32.6 g/dL (32.0-36.0); Mean Corpuscular Volume 90.3 fL (80.0-100.0); Platelet Count (auto) 382 10^3/uL (140-450); Red Blood Cells 3.86 10^6/uL (4.0-5.20); Red Cell Distribution Width 14.3 % (11.8-14.3); White Blood Cell 19.4 10^3/uL (4.4-10.8)
[2018-04-09 11:02] LABS: Basophils % (manual) 0 (0.0-2.0); Blast Cells 0; Eosinophils % (manual) 0 (0-7); Metamyelocytes % 0; Promyelocytes % 0; Reactive Lymphocytes 0
[2018-04-09 11:27] LABS: Calcium 8.5 mg/dL (8.5-10.1); Potassium 3.1 mmol/L (3.5-5.1)
[2018-04-09 13:07] LABS: Band Neutrophils % (manual) 1; Lymphocytes % (manual) 5 (10.0-50.0); Monocytes % (manual) 5 (0-12); Myelocytes % 1
[2018-04-09 13:18] VITALS: BP 133/75
[2018-04-09] MEDS ORDERED: POTASSIUM CHL 20 Meq TABLET PO ONE (15:45)
[2018-04-09] MEDS: HYDROcodone-ACET 5/325MG TAB PO PRN (15:52)
[2018-04-09 17:11] VITALS: BP 128/66
[2018-04-09 21:50] VITALS: BP 126/71
[2018-04-09] MEDS: LORazepam 0.5 MG TAB PO PRN (22:33)
[2018-04-10] MEDS: ALBUTEROL SULF 2.5 MG/0.5ML(0.5%) NEB SOLN NEB SCH ×6 (02:28→22:42)
[2018-04-10] MEDS: IPRATROPIUM BROM 0.5 MG/2.5ML INH SOL NEB SCH ×6 (02:28→22:41)
[2018-04-10] MEDS: diphenhdrAMINE HCL 50 MG/1 ML VL IV PRN ×4 (02:46→21:48)
[2018-04-10] MEDS: MORPHINE SULFATE 4 MG/ML SYR/VIAL IV PRN ×4 (02:47→21:48)
[2018-04-10 05:30] LABS: Hematocrit 35.2 % (36.0-46.0); Hemoglobin 11.8 g/dL (12.2-16.2); Mean Corpuscular Hemoglobin 30.3 pg (28.0-32.0); Mean Corpuscular Hgb Conc. 33.4 g/dL (32.0-36.0); Mean Corpuscular Volume 90.7 fL (80.0-100.0); Platelet Count (auto) 406 10^3/uL (140-450); Red Blood Cells 3.89 10^6/uL (4.0-5.20)
[2018-04-10 05:33] LABS: Band Neutrophils % (manual) 0; Basophils % (manual) 0 (0.0-2.0); Blast Cells 0; Eosinophils % (manual) 0 (0-7); Metamyelocytes % 0; Myelocytes % 0; Promyelocytes % 0; Reactive Lymphocytes 0
[2018-04-10 05:44] LABS: BUN/Creatinine Ratio 21.3; Calcium 8.2 mg/dL (8.5-10.1); Magnesium 3.4 mg/dL (1.6-2.6); Potassium 3.5 mmol/L (3.5-5.1)
[2018-04-10] MEDS: GABAPENTIN 300 MG CAP PO SCH ×3 (05:46→21:47)
[2018-04-10] MEDS: methylPREDNISolone SOD SUCC 40 MG/ML VL IV SCH ×3 (05:46→21:47)
[2018-04-10] MEDS: BACLOFEN 10 MG TAB PO SCH ×3 (05:47→21:47)
[2018-04-10 05:49] VITALS: BP 129/67
[2018-04-10] MEDS: InsuLIN REG 1unit/0.01ml Soln (100units/ml) SC SCH ×4 (06:22→22:01)
[2018-04-10] MEDS: ACCU-CHEK COMFORT CURVE STRIP VI SCH ×4 (06:22→22:01)
[2018-04-10 07:15] LABS: Lymphocytes % (manual) 12 (10.0-50.0); Monocytes % (manual) 6 (0-12)
[2018-04-10 08:00] VITALS: BP 134/78
[2018-04-10 09:00] VITALS: BP 128/82
[2018-04-10] MEDS: LEVOFLOXACIN 500MG 100 ML IV SCH (10:00)
[2018-04-10] MEDS: DULoxetine HCL 30 MG CAP PO SCH ×2 (10:04→21:46)
[2018-04-10] MEDS: FUROSEMIDE 40 MG TAB PO SCH (10:05)
[2018-04-10] MEDS: ENOXAPARIN SOD 40 MG/0.4 ML SYRINGE SC SCH ×2 (10:06→21:47)
[2018-04-10] MEDS: CARVEDILOL 3.125 MG TAB PO SCH ×2 (10:06→22:00)
[2018-04-10] MEDS: ASPirin 81 mg TAB PO SCH (10:06)
[2018-04-10] MEDS: MORPHINE SULF 30 mg ER tab PO SCH ×2 (10:07→23:17)
[2018-04-10] MEDS: POTASSIUM CHL 20 Meq TABLET PO SCH (10:13)
[2018-04-10] MEDS: PANTOPRAZOLE 40 MG TAB PO SCH (10:13)
[2018-04-10] MEDS: HYDROcodone-ACET 5/325MG TAB PO PRN (10:51)
[2018-04-10 13:00] VITALS: BP 136/77
[2018-04-10 18:03] VITALS: BP 129/62
[2018-04-10 22:00] VITALS: BP 123/65
[2018-04-10] MEDS: LORazepam 0.5 MG TAB PO PRN (23:17)
[2018-04-11] VITALS (7 sets, daily range): BP systolic 102–135; BP diastolic 52–69
[2018-04-11] MEDS: ALBUTEROL SULF 2.5 MG/0.5ML(0.5%) NEB SOLN NEB SCH ×6 (02:07→22:03)
[2018-04-11] MEDS: IPRATROPIUM BROM 0.5 MG/2.5ML INH SOL NEB SCH ×6 (02:07→22:03)
[2018-04-11] MEDS: diphenhdrAMINE HCL 50 MG/1 ML VL IV PRN ×5 (05:49→21:53)
[2018-04-11] MEDS: BACLOFEN 10 MG TAB PO SCH ×3 (05:49→21:21)
[2018-04-11] MEDS: GABAPENTIN 300 MG CAP PO SCH ×3 (05:49→21:21)
[2018-04-11] MEDS: MORPHINE SULFATE 4 MG/ML SYR/VIAL IV PRN ×5 (05:50→21:53)
[2018-04-11] MEDS: methylPREDNISolone SOD SUCC 40 MG/ML VL IV SCH ×3 (05:50→21:18)
[2018-04-11] MEDS: ACCU-CHEK COMFORT CURVE STRIP VI SCH ×4 (06:25→21:20)
[2018-04-11] MEDS: InsuLIN REG 1unit/0.01ml Soln (100units/ml) SC SCH ×4 (06:27→21:23)
[2018-04-11 07:50] LABS: BUN/Creatinine Ratio 27.8; Calcium 8.2 mg/dL (8.5-10.1); Potassium 3.4 mmol/L (3.5-5.1)
[2018-04-11 08:01] LABS: Hematocrit 33.4 % (36.0-46.0); Hemoglobin 11.1 g/dL (12.2-16.2); Mean Corpuscular Hemoglobin 29.9 pg (28.0-32.0); Mean Corpuscular Hgb Conc. 33.4 g/dL (32.0-36.0); Mean Corpuscular Volume 89.5 fL (80.0-100.0); Platelet Count (auto) 409 10^3/uL (140-450); Red Blood Cells 3.73 10^6/uL (4.0-5.20); Red Cell Distribution Width 14.2 % (11.8-14.3); White Blood Cell 19.9 10^3/uL (4.4-10.8)
[2018-04-11 08:12] LABS: Basophils % (manual) 0 (0.0-2.0); Blast Cells 0; Eosinophils % (manual) 0 (0-7); Metamyelocytes % 0; Myelocytes % 0; Promyelocytes % 0; Reactive Lymphocytes 0
[2018-04-11] MEDS: ENOXAPARIN SOD 40 MG/0.4 ML SYRINGE SC SCH ×2 (09:26→21:20)
[2018-04-11] MEDS: CARVEDILOL 3.125 MG TAB PO SCH ×2 (09:27→21:29)
[2018-04-11] MEDS: FUROSEMIDE 40 MG TAB PO SCH (09:27)
[2018-04-11] MEDS: DULoxetine HCL 30 MG CAP PO SCH ×2 (09:27→21:20)
[2018-04-11] MEDS: POTASSIUM CHL 20 Meq TABLET PO SCH (09:27)
[2018-04-11] MEDS: ASPirin 81 mg TAB PO SCH (09:27)
[2018-04-11] MEDS: PANTOPRAZOLE 40 MG TAB PO SCH (09:27)
[2018-04-11] MEDS: MORPHINE SULF 30 mg ER tab PO SCH ×2 (09:28→21:19)
[2018-04-11] MEDS: LEVOFLOXACIN 500MG 100 ML IV SCH (09:29)
[2018-04-11 10:33] LABS: Band Neutrophils % (manual) 3; Lymphocytes % (manual) 10 (10.0-50.0); Monocytes % (manual) 3 (0-12)
[2018-04-11] MEDS ORDERED: POTASSIUM CHL 20 Meq TABLET PO ONE (13:15)
[2018-04-11] MEDS ORDERED: DEXTROSE (50%) 50ML SYRG IV PRN (13:15)
[2018-04-11] MEDS: LORazepam 0.5 MG TAB PO PRN (20:15)
[2018-04-12] MEDS: IPRATROPIUM BROM 0.5 MG/2.5ML INH SOL NEB SCH ×6 (02:04→22:45)
[2018-04-12] MEDS: ALBUTEROL SULF 2.5 MG/0.5ML(0.5%) NEB SOLN NEB SCH ×6 (02:04→22:45)
[2018-04-12] MEDS: diphenhdrAMINE HCL 50 MG/1 ML VL IV PRN ×5 (02:07→20:22)
[2018-04-12] MEDS: MORPHINE SULFATE 4 MG/ML SYR/VIAL IV PRN ×5 (02:11→20:22)
[2018-04-12 05:00] VITALS: BP 113/60
[2018-04-12] MEDS: GABAPENTIN 300 MG CAP PO SCH ×3 (05:55→21:46)
[2018-04-12] MEDS: BACLOFEN 10 MG TAB PO SCH ×3 (05:56→21:46)
[2018-04-12] MEDS: methylPREDNISolone SOD SUCC 40 MG/ML VL IV SCH ×3 (05:59→21:45)
[2018-04-12] MEDS: InsuLIN REG 1unit/0.01ml Soln (100units/ml) SC SCH ×4 (06:07→21:57)
[2018-04-12] MEDS: ACCU-CHEK COMFORT CURVE STRIP VI SCH ×4 (06:07→21:57)
[2018-04-12 06:25] LABS: Hematocrit 32.9 % (36.0-46.0); Hemoglobin 11.1 g/dL (12.2-16.2); Mean Corpuscular Hemoglobin 30.2 pg (28.0-32.0); Mean Corpuscular Hgb Conc. 33.6 g/dL (32.0-36.0); Mean Corpuscular Volume 89.8 fL (80.0-100.0); Platelet Count (auto) 403 10^3/uL (140-450); Red Blood Cells 3.67 10^6/uL (4.0-5.20); White Blood Cell 22.7 10^3/uL (4.4-10.8)
[2018-04-12 06:31] LABS: Band Neutrophils % (manual) 0; Basophils % (manual) 0 (0.0-2.0); Blast Cells 0; Eosinophils % (manual) 0 (0-7); Myelocytes % 0; Promyelocytes % 0; Reactive Lymphocytes 0
[2018-04-12 06:43] LABS: BUN/Creatinine Ratio 29.2; Calcium 7.8 mg/dL (8.5-10.1); Potassium 3.7 mmol/L (3.5-5.1)
[2018-04-12 07:49] LABS: Lymphocytes % (manual) 6 (10.0-50.0); Metamyelocytes % 1; Monocytes % (manual) 11 (0-12)
[2018-04-12 09:00] VITALS: BP 103/70
[2018-04-12] MEDS: CARVEDILOL 3.125 MG TAB PO SCH ×2 (10:00→22:00)
[2018-04-12] MEDS: guaiFENesin-DM 100/10mg/5ml SYR PO PRN (10:03)
[2018-04-12] MEDS: ENOXAPARIN SOD 40 MG/0.4 ML SYRINGE SC SCH ×2 (10:03→21:47)
[2018-04-12] MEDS: PANTOPRAZOLE 40 MG TAB PO SCH (10:04)
[2018-04-12] MEDS: ASPirin 81 mg TAB PO SCH (10:04)
[2018-04-12] MEDS: MORPHINE SULF 30 mg ER tab PO SCH ×2 (10:04→21:47)
[2018-04-12] MEDS: DULoxetine HCL 30 MG CAP PO SCH ×2 (10:05→21:46)
[2018-04-12] MEDS: POTASSIUM CHL 20 Meq TABLET PO SCH (10:05)
[2018-04-12] MEDS: FUROSEMIDE 40 MG TAB PO SCH (10:07)
[2018-04-12] MEDS ORDERED: MORP60TA25 PO (10:18)
[2018-04-12] MEDS ORDERED: BACL10TA PO (10:18)
[2018-04-12] MEDS ORDERED: MORP30TA PO (10:18)
[2018-04-12] MEDS ORDERED: BUSP15TA60 PO (12:05)
[2018-04-12] MEDS ORDERED: HYDR50TA69 PO (12:05)
[2018-04-12] MEDS ORDERED: DIVA500T59 PO (12:05)
[2018-04-12 13:00] VITALS: BP 132/72
[2018-04-12 17:25] VITALS: BP 117/67
[2018-04-12 22:00] VITALS: BP 109/64
[2018-04-13] MEDS: IPRATROPIUM BROM 0.5 MG/2.5ML INH SOL NEB SCH ×6 (02:25→22:47)
[2018-04-13] MEDS: ALBUTEROL SULF 2.5 MG/0.5ML(0.5%) NEB SOLN NEB SCH ×6 (02:25→22:47)
[2018-04-13] MEDS: BACLOFEN 10 MG TAB PO SCH ×3 (05:07→21:06)
[2018-04-13] MEDS: MORPHINE SULFATE 4 MG/ML SYR/VIAL IV PRN ×5 (05:09→21:43)
[2018-04-13] MEDS: diphenhdrAMINE HCL 50 MG/1 ML VL IV PRN ×5 (05:09→21:42)
[2018-04-13] MEDS: GABAPENTIN 300 MG CAP PO SCH ×3 (05:12→21:08)
[2018-04-13] MEDS: methylPREDNISolone SOD SUCC 40 MG/ML VL IV SCH (05:12)
[2018-04-13] MEDS: ACCU-CHEK COMFORT CURVE STRIP VI SCH ×4 (05:18→21:43)
[2018-04-13 05:26] VITALS: BP 102/57
[2018-04-13] MEDS: InsuLIN REG 1unit/0.01ml Soln (100units/ml) SC SCH ×4 (06:00→21:42)
[2018-04-13 06:57] LABS: Mean Corpuscular Volume 90.6 fL (80.0-100.0)
[2018-04-13 07:02] LABS: Hematocrit 34.6 % (36.0-46.0); Hemoglobin 11.4 g/dL (12.2-16.2); Mean Corpuscular Hemoglobin 29.8 pg (28.0-32.0); Mean Corpuscular Hgb Conc. 32.9 g/dL (32.0-36.0); Platelet Count (auto) 448 10^3/uL (140-450); Red Blood Cells 3.82 10^6/uL (4.0-5.20); Red Cell Distribution Width 14.4 % (11.8-14.3); White Blood Cell 24.5 10^3/uL (4.4-10.8)
[2018-04-13 07:11] LABS: Basophils % (manual) 0 (0.0-2.0); Blast Cells 0; Eosinophils % (manual) 0 (0-7); Metamyelocytes % 0; Myelocytes % 0; Promyelocytes % 0; Reactive Lymphocytes 0
[2018-04-13 07:13] LABS: BUN/Creatinine Ratio 34.5; Calcium 8.2 mg/dL (8.5-10.1); Potassium 3.6 mmol/L (3.5-5.1)
[2018-04-13 07:59] LABS: Lymphocytes % (manual) 3 (10.0-50.0); Monocytes % (manual) 4 (0-12)
[2018-04-13 08:00] LABS: Band Neutrophils % (manual) 2
[2018-04-13 09:48] VITALS: BP 121/57
[2018-04-13] MEDS: methylPREDNISolone SOD SUCC 125 MG/2 ML VL IV SCH ×3 (10:00→21:10)
[2018-04-13] MEDS: ENOXAPARIN SOD 40 MG/0.4 ML SYRINGE SC SCH ×2 (10:17→21:13)
[2018-04-13] MEDS: PANTOPRAZOLE 40 MG TAB PO SCH (10:18)
[2018-04-13] MEDS: FUROSEMIDE 40 MG TAB PO SCH (10:18)
[2018-04-13] MEDS: ASPirin 81 mg TAB PO SCH (10:18)
[2018-04-13] MEDS: POTASSIUM CHL 20 Meq TABLET PO SCH (10:19)
[2018-04-13] MEDS: CARVEDILOL 3.125 MG TAB PO SCH ×2 (10:19→21:07)
[2018-04-13] MEDS: DULoxetine HCL 30 MG CAP PO SCH ×2 (10:19→21:07)
[2018-04-13] MEDS: guaiFENesin-DM 100/10mg/5ml SYR PO PRN (10:19)
[2018-04-13] MEDS: MORPHINE SULF 30 mg ER tab PO SCH ×2 (10:25→21:07)
[2018-04-13] MEDS: LORazepam 0.5 MG TAB PO PRN (12:09)
[2018-04-13 12:30] VITALS: BP 131/72
[2018-04-13] MEDS: ACETYLCYSTEINE 20%(200MG/ML) SOL 4ML NEB SCH ×2 (14:19→22:47)
[2018-04-13 17:26] VITALS: BP 127/51
[2018-04-13 21:49] VITALS: BP 122/69
[2018-04-14] MEDS: ALBUTEROL SULF 2.5 MG/0.5ML(0.5%) NEB SOLN NEB SCH ×6 (02:25→22:47)
[2018-04-14] MEDS: IPRATROPIUM BROM 0.5 MG/2.5ML INH SOL NEB SCH ×6 (02:25→22:48)
[2018-04-14] MEDS: MORPHINE SULFATE 4 MG/ML SYR/VIAL IV PRN ×5 (02:39→20:27)
[2018-04-14] MEDS: diphenhdrAMINE HCL 50 MG/1 ML VL IV PRN ×6 (02:41→20:28)
[2018-04-14 05:00] VITALS: BP 125/67
[2018-04-14 06:46] LABS: Basophils # (auto) 0 uL; Basophils % (auto) 0.1 % (0.0-2.0); Eosinophils # (auto) 0 uL; Eosinophils % (auto) 0.2 % (0.0-7.0); Hematocrit 33.3 % (36.0-46.0); Hemoglobin 10.9 g/dL (12.2-16.2); Lymphocytes # (auto) 0.7 uL; Lymphocytes % (auto) 2.7 % (10.0-50.0); Mean Corpuscular Hemoglobin 29.9 pg (28.0-32.0); Mean Corpuscular Hgb Conc. 32.8 g/dL (32.0-36.0); Mean Corpuscular Volume 91.2 fL (80.0-100.0); Monocytes # (auto) 1.1 uL; Monocytes % (auto) 4.7 % (0.0-12.0); Neutrophils # (auto) 22.4 uL; Neutrophils % (auto) 92.3 % (37.0-80.0); Platelet Count (auto) 423 10^3/uL (140-450); Red Blood Cells 3.65 10^6/uL (4.0-5.20); Red Cell Distribution Width 14.1 % (11.8-14.3); White Blood Cell 24.2 10^3/uL (4.4-10.8)
[2018-04-14] MEDS: BACLOFEN 10 MG TAB PO SCH ×3 (06:47→21:41)
[2018-04-14] MEDS: InsuLIN REG 1unit/0.01ml Soln (100units/ml) SC SCH ×5 (06:48→22:00)
[2018-04-14] MEDS: GABAPENTIN 300 MG CAP PO SCH ×3 (06:48→21:40)
[2018-04-14] MEDS: ACCU-CHEK COMFORT CURVE STRIP VI SCH ×4 (06:48→22:00)
[2018-04-14] MEDS: ACETYLCYSTEINE 20%(200MG/ML) SOL 4ML NEB SCH ×3 (06:52→19:24)
[2018-04-14 07:05] LABS: Calcium 7.9 mg/dL (8.5-10.1); Potassium 3.7 mmol/L (3.5-5.1)
[2018-04-14 07:37] LABS: INR 1.07 (0.9-1.15); Partial Thromboplastin Time 25.4 sec (23.78-33.04); Prothrombin Time 11.4 sec (9.27-12.13)
[2018-04-14 09:12] VITALS: BP 122/67
[2018-04-14] MEDS ORDERED: DEXTROSE (50%) 50ML SYRG IV PRN (09:30)
[2018-04-14] MEDS: DULoxetine HCL 30 MG CAP PO SCH ×2 (09:58→21:40)
[2018-04-14] MEDS: POTASSIUM CHL 20 Meq TABLET PO SCH (09:59)
[2018-04-14] MEDS: CARVEDILOL 3.125 MG TAB PO SCH ×2 (10:00→21:53)
[2018-04-14] MEDS: FUROSEMIDE 40 MG TAB PO SCH (10:00)
[2018-04-14] MEDS: ASPirin 81 mg TAB PO SCH (10:01)
[2018-04-14] MEDS: methylPREDNISolone SOD SUCC 125 MG/2 ML VL IV SCH ×2 (10:02→21:44)
[2018-04-14] MEDS: ENOXAPARIN SOD 40 MG/0.4 ML SYRINGE SC SCH ×2 (10:02→21:44)
[2018-04-14] MEDS: MORPHINE SULF 30 mg ER tab PO SCH ×3 (10:02→23:25)
[2018-04-14] MEDS: guaiFENesin-DM 100/10mg/5ml SYR PO PRN ×3 (10:03→21:54)
[2018-04-14] MEDS: PANTOPRAZOLE 40 MG TAB PO SCH (10:10)
[2018-04-14 14:31] VITALS: BP 99/61
[2018-04-14 17:08] VITALS: BP 128/70
[2018-04-14] MEDS: LORazepam 0.5 MG TAB PO PRN (21:54)
[2018-04-14 21:56] VITALS: BP 120/74
[2018-04-15] MEDS: ALBUTEROL SULF 2.5 MG/0.5ML(0.5%) NEB SOLN NEB SCH ×6 (02:15→22:46)
[2018-04-15] MEDS: IPRATROPIUM BROM 0.5 MG/2.5ML INH SOL NEB SCH ×6 (02:15→22:46)
[2018-04-15] MEDS: MORPHINE SULFATE 4 MG/ML SYR/VIAL IV PRN ×5 (02:30→22:37)
[2018-04-15] MEDS: diphenhdrAMINE HCL 50 MG/1 ML VL IV PRN ×3 (02:30→11:25)
[2018-04-15] MEDS: BACLOFEN 10 MG TAB PO SCH ×3 (05:26→21:23)
[2018-04-15] MEDS: GABAPENTIN 300 MG CAP PO SCH ×3 (05:27→21:23)
[2018-04-15] MEDS: ACCU-CHEK COMFORT CURVE STRIP VI SCH ×4 (05:27→23:42)
[2018-04-15 05:33] VITALS: BP 118/64
[2018-04-15] MEDS: ACETYLCYSTEINE 20%(200MG/ML) SOL 4ML NEB SCH ×3 (06:15→22:47)
[2018-04-15 06:40] LABS: Potassium 3.4 mmol/L (3.5-5.1)
[2018-04-15 06:43] LABS: Hematocrit 32.4 % (36.0-46.0); Mean Corpuscular Hemoglobin 30.6 pg (28.0-32.0); Mean Corpuscular Hgb Conc. 33.9 g/dL (32.0-36.0); Mean Corpuscular Volume 90.4 fL (80.0-100.0); Platelet Count (auto) 426 10^3/uL (140-450); Red Blood Cells 3.59 10^6/uL (4.0-5.20); Red Cell Distribution Width 14.1 % (11.8-14.3); White Blood Cell 21.5 10^3/uL (4.4-10.8)
[2018-04-15 06:46] LABS: BUN/Creatinine Ratio 27.3; Calcium 7.8 mg/dL (8.5-10.1)
[2018-04-15] MEDS: InsuLIN REG 1unit/0.01ml Soln (100units/ml) SC SCH ×4 (06:57→22:45)
[2018-04-15] MEDS: guaiFENesin-DM 100/10mg/5ml SYR PO PRN (06:58)
[2018-04-15] MEDS: LACTULOSE 20Gm/30ML SOLN PO PRN (07:00)
[2018-04-15 07:04] LABS: Band Neutrophils % (manual) 0; Basophils % (manual) 0 (0.0-2.0); Blast Cells 0; Eosinophils % (manual) 0 (0-7); Metamyelocytes % 0; Myelocytes % 0; Promyelocytes % 0; Reactive Lymphocytes 0
[2018-04-15 09:06] VITALS: BP 126/68
[2018-04-15] MEDS ORDERED: POTASSIUM EFFERVESENT TAB 25 MEQ PO ONE (09:30)
[2018-04-15] MEDS: methylPREDNISolone SOD SUCC 125 MG/2 ML VL IV SCH ×2 (10:01→21:26)
[2018-04-15] MEDS: ENOXAPARIN SOD 40 MG/0.4 ML SYRINGE SC SCH ×2 (10:02→21:23)
[2018-04-15] MEDS: PANTOPRAZOLE 40 MG TAB PO SCH (10:02)
[2018-04-15] MEDS: MORPHINE SULF 30 mg ER tab PO SCH ×2 (10:03→21:25)
[2018-04-15] MEDS: CARVEDILOL 3.125 MG TAB PO SCH ×2 (10:03→21:27)
[2018-04-15] MEDS: POTASSIUM CHL 20 Meq TABLET PO SCH (10:03)
[2018-04-15] MEDS: FUROSEMIDE 40 MG TAB PO SCH (10:04)
[2018-04-15] MEDS: DULoxetine HCL 30 MG CAP PO SCH ×2 (10:04→21:24)
[2018-04-15] MEDS: ASPirin 81 mg TAB PO SCH (10:04)
[2018-04-15] MEDS: PROMETHAZINE HCL 25 MG/ML 1ML IV PRN (10:05)
[2018-04-15 10:30] LABS: Lymphocytes % (manual) 2 (10.0-50.0); Monocytes % (manual) 10 (0-12)
[2018-04-15 11:55] VITALS: BP 104/52
[2018-04-15 16:55] VITALS: BP 107/49
[2018-04-15 20:00] VITALS: BP 120/65
[2018-04-15] MEDS: hydrOXYzine 25 MG TAB or CAP PO SCH (21:23)
[2018-04-15] MEDS: busPIRone HCL 10 MG TAB PO SCH (21:24)
[2018-04-15 22:00] VITALS: BP 120/65
[2018-04-15] MEDS ORDERED: INSULIN LANTUS (GLARGINE) 1 /0.01ml (100units/ml) SC SCH (22:00)
[2018-04-16] MEDS: IPRATROPIUM BROM 0.5 MG/2.5ML INH SOL NEB SCH ×6 (02:30→22:24)
[2018-04-16] MEDS: ALBUTEROL SULF 2.5 MG/0.5ML(0.5%) NEB SOLN NEB SCH ×6 (02:31→22:24)
[2018-04-16] MEDS: MORPHINE SULFATE 4 MG/ML SYR/VIAL IV PRN ×5 (04:25→21:17)
[2018-04-16 05:00] VITALS: BP 118/68
[2018-04-16] MEDS: BACLOFEN 10 MG TAB PO SCH ×3 (05:07→21:18)
[2018-04-16] MEDS: LORazepam 0.5 MG TAB PO PRN (05:07)
[2018-04-16] MEDS: GABAPENTIN 300 MG CAP PO SCH ×3 (05:08→21:18)
[2018-04-16] MEDS: ACETYLCYSTEINE 20%(200MG/ML) SOL 4ML NEB SCH ×3 (06:14→22:25)
[2018-04-16 06:21] LABS: Basophils # (auto) 0.1 uL; Basophils % (auto) 0.3 % (0.0-2.0); Eosinophils # (auto) 0 uL; Hematocrit 32.8 % (36.0-46.0); Lymphocytes # (auto) 0.6 uL; Lymphocytes % (auto) 2.6 % (10.0-50.0); Mean Corpuscular Hemoglobin 30.6 pg (28.0-32.0); Mean Corpuscular Hgb Conc. 33.6 g/dL (32.0-36.0); Mean Corpuscular Volume 91.1 fL (80.0-100.0); Monocytes # (auto) 1.4 uL; Monocytes % (auto) 6.4 % (0.0-12.0); Neutrophils # (auto) 19.9 uL; Neutrophils % (auto) 90.7 % (37.0-80.0); Platelet Count (auto) 412 10^3/uL (140-450); Red Blood Cells 3.61 10^6/uL (4.0-5.20); Red Cell Distribution Width 14.2 % (11.8-14.3)
[2018-04-16 06:38] LABS: Calcium 7.6 mg/dL (8.5-10.1); Potassium 3.5 mmol/L (3.5-5.1)
[2018-04-16] MEDS: ACCU-CHEK COMFORT CURVE STRIP VI SCH ×4 (07:00→21:21)
[2018-04-16] MEDS: InsuLIN REG 1unit/0.01ml Soln (100units/ml) SC SCH ×4 (07:34→21:46)
[2018-04-16 08:00] VITALS: BP 121/77
[2018-04-16] MEDS: PROMETHAZINE HCL 25 MG/ML 1ML IV PRN ×4 (08:35→21:19)
[2018-04-16 09:00] VITALS: BP 121/77
[2018-04-16] MEDS: methylPREDNISolone SOD SUCC 125 MG/2 ML VL IV SCH ×2 (09:23→21:21)
[2018-04-16] MEDS: ENOXAPARIN SOD 40 MG/0.4 ML SYRINGE SC SCH ×2 (09:23→21:17)
[2018-04-16] MEDS: ASPirin 81 mg TAB PO SCH (09:23)
[2018-04-16] MEDS: FUROSEMIDE 40 MG TAB PO SCH (09:24)
[2018-04-16] MEDS: PANTOPRAZOLE 40 MG TAB PO SCH (09:24)
[2018-04-16] MEDS: CARVEDILOL 3.125 MG TAB PO SCH ×2 (09:24→21:19)
[2018-04-16] MEDS: DULoxetine HCL 30 MG CAP PO SCH ×2 (09:25→21:19)
[2018-04-16] MEDS: POTASSIUM CHL 20 Meq TABLET PO SCH (09:25)
[2018-04-16] MEDS: MORPHINE SULF 30 mg ER tab PO SCH ×2 (09:26→21:45)
[2018-04-16] MEDS: busPIRone HCL 10 MG TAB PO SCH ×2 (09:28→21:20)
[2018-04-16] MEDS: hydrOXYzine 25 MG TAB or CAP PO SCH ×2 (09:28→21:20)
[2018-04-16 13:00] VITALS: BP 132/61
[2018-04-16 17:00] VITALS: BP 124/62
[2018-04-16] MEDS: INSULIN LANTUS (GLARGINE) 1 /0.01ml (100units/ml) SC SCH (21:46)
[2018-04-16 21:48] VITALS: BP 131/71
[2018-04-17] MEDS: PROMETHAZINE HCL 25 MG/ML 1ML IV PRN ×6 (01:13→21:45)
[2018-04-17] MEDS: MORPHINE SULFATE 4 MG/ML SYR/VIAL IV PRN ×6 (01:14→21:45)
[2018-04-17] MEDS: ALBUTEROL SULF 2.5 MG/0.5ML(0.5%) NEB SOLN NEB SCH ×6 (02:31→22:03)
[2018-04-17] MEDS: IPRATROPIUM BROM 0.5 MG/2.5ML INH SOL NEB SCH ×6 (02:32→22:03)
[2018-04-17 05:01] VITALS: BP 123/70
[2018-04-17] MEDS: BACLOFEN 10 MG TAB PO SCH ×3 (06:11→21:48)
[2018-04-17] MEDS: ACCU-CHEK COMFORT CURVE STRIP VI SCH ×4 (06:11→21:48)
[2018-04-17] MEDS: GABAPENTIN 300 MG CAP PO SCH ×3 (06:11→21:48)
[2018-04-17] MEDS: InsuLIN REG 1unit/0.01ml Soln (100units/ml) SC SCH ×4 (06:12→22:04)
[2018-04-17] MEDS: ACETYLCYSTEINE 20%(200MG/ML) SOL 4ML NEB SCH ×3 (06:31→22:03)
[2018-04-17 06:59] LABS: Mean Corpuscular Hemoglobin 30.4 pg (28.0-32.0); Mean Corpuscular Hgb Conc. 33.3 g/dL (32.0-36.0); Mean Corpuscular Volume 91.5 fL (80.0-100.0); Platelet Count (auto) 377 10^3/uL (140-450); Red Cell Distribution Width 14.3 % (11.8-14.3); White Blood Cell 21.3 10^3/uL (4.4-10.8)
[2018-04-17 07:13] LABS: BUN/Creatinine Ratio 28.8; Calcium 7.7 mg/dL (8.5-10.1); Potassium 3.7 mmol/L (3.5-5.1)
[2018-04-17 07:17] LABS: Basophils % (manual) 0 (0.0-2.0); Blast Cells 0; Metamyelocytes % 0; Myelocytes % 0; Promyelocytes % 0; Reactive Lymphocytes 0
[2018-04-17 08:00] VITALS: BP 126/67
[2018-04-17 08:28] LABS: Band Neutrophils % (manual) 1; Eosinophils % (manual) 1 (0-7); Lymphocytes % (manual) 4 (10.0-50.0); Monocytes % (manual) 8 (0-12)
[2018-04-17 09:00] VITALS: BP 126/67
[2018-04-17] MEDS: ENOXAPARIN SOD 40 MG/0.4 ML SYRINGE SC SCH ×2 (09:33→21:44)
[2018-04-17] MEDS: methylPREDNISolone SOD SUCC 125 MG/2 ML VL IV SCH ×2 (09:33→21:44)
[2018-04-17] MEDS: PANTOPRAZOLE 40 MG TAB PO SCH (09:34)
[2018-04-17] MEDS: FUROSEMIDE 40 MG TAB PO SCH (09:34)
[2018-04-17] MEDS: POTASSIUM CHL 20 Meq TABLET PO SCH (09:34)
[2018-04-17] MEDS: busPIRone HCL 10 MG TAB PO SCH ×2 (09:35→21:46)
[2018-04-17] MEDS: hydrOXYzine 25 MG TAB or CAP PO SCH ×2 (09:35→21:46)
[2018-04-17] MEDS: CARVEDILOL 3.125 MG TAB PO SCH ×2 (09:35→21:47)
[2018-04-17] MEDS: ASPirin 81 mg TAB PO SCH (09:35)
[2018-04-17] MEDS: DULoxetine HCL 30 MG CAP PO SCH ×2 (10:36→21:45)
[2018-04-17] MEDS: MORPHINE SULF 30 mg ER tab PO SCH ×2 (10:37→21:48)
[2018-04-17 12:46] VITALS: BP 122/73
[2018-04-17 16:59] VITALS: BP 109/58
[2018-04-17 22:00] VITALS: BP 105/51
[2018-04-17] MEDS: INSULIN LANTUS (GLARGINE) 1 /0.01ml (100units/ml) SC SCH (22:04)
[2018-04-18] MEDS: MORPHINE SULFATE 4 MG/ML SYR/VIAL IV PRN ×6 (01:40→22:50)
[2018-04-18] MEDS: PROMETHAZINE HCL 25 MG/ML 1ML IV PRN ×5 (01:41→22:50)
[2018-04-18] MEDS: IPRATROPIUM BROM 0.5 MG/2.5ML INH SOL NEB SCH ×6 (02:06→22:10)
[2018-04-18] MEDS: ALBUTEROL SULF 2.5 MG/0.5ML(0.5%) NEB SOLN NEB SCH ×6 (02:07→22:10)
[2018-04-18 05:07] VITALS: BP 132/70
[2018-04-18] MEDS: BACLOFEN 10 MG TAB PO SCH ×3 (06:00→21:16)
[2018-04-18] MEDS: GABAPENTIN 300 MG CAP PO SCH ×3 (06:00→21:10)
[2018-04-18] MEDS: ACCU-CHEK COMFORT CURVE STRIP VI SCH ×4 (06:01→21:16)
[2018-04-18] MEDS: InsuLIN REG 1unit/0.01ml Soln (100units/ml) SC SCH ×4 (06:01→21:26)
[2018-04-18 06:35] LABS: Mean Corpuscular Hemoglobin 30.4 pg (28.0-32.0); Mean Corpuscular Hgb Conc. 33.3 g/dL (32.0-36.0); Mean Corpuscular Volume 91.2 fL (80.0-100.0); Platelet Count (auto) 359 10^3/uL (140-450); Red Blood Cells 3.62 10^6/uL (4.0-5.20); Red Cell Distribution Width 14.4 % (11.8-14.3); White Blood Cell 23.1 10^3/uL (4.4-10.8)
[2018-04-18 06:45] LABS: BUN/Creatinine Ratio 40.6; Calcium 7.9 mg/dL (8.5-10.1); Potassium 3.7 mmol/L (3.5-5.1)
[2018-04-18 06:47] LABS: Basophils % (manual) 0 (0.0-2.0); Blast Cells 0; Eosinophils % (manual) 0 (0-7); Metamyelocytes % 0; Myelocytes % 0; Promyelocytes % 0; Reactive Lymphocytes 0
[2018-04-18] MEDS: ACETYLCYSTEINE 20%(200MG/ML) SOL 4ML NEB SCH (07:01)
[2018-04-18 08:00] VITALS: BP 134/75
[2018-04-18 08:42] LABS: Band Neutrophils % (manual) 1; Lymphocytes % (manual) 4 (10.0-50.0); Monocytes % (manual) 8 (0-12)
[2018-04-18] MEDS: MORPHINE SULF 30 mg ER tab PO SCH ×2 (08:49→21:14)
[2018-04-18] MEDS: ACETYLCYSTEINE ORAL for CIN 20%(200MG/ML) 4ML PO SCH ×2 (10:00→21:39)
[2018-04-18] MEDS: methylPREDNISolone SOD SUCC 125 MG/2 ML VL IV SCH ×2 (10:32→21:09)
[2018-04-18] MEDS: hydrOXYzine 25 MG TAB or CAP PO SCH ×2 (10:33→21:12)
[2018-04-18] MEDS: busPIRone HCL 10 MG TAB PO SCH ×2 (10:33→21:13)
[2018-04-18] MEDS: PANTOPRAZOLE 40 MG TAB PO SCH (10:33)
[2018-04-18] MEDS: POTASSIUM CHL 20 Meq TABLET PO SCH (10:33)
[2018-04-18] MEDS: ENOXAPARIN SOD 40 MG/0.4 ML SYRINGE SC SCH ×2 (10:33→21:09)
[2018-04-18] MEDS: FUROSEMIDE 40 MG TAB PO SCH (10:34)
[2018-04-18] MEDS: ASPirin 81 mg TAB PO SCH (10:35)
[2018-04-18] MEDS: CARVEDILOL 3.125 MG TAB PO SCH ×2 (10:36→21:14)
[2018-04-18] MEDS: DULoxetine HCL 30 MG CAP PO SCH ×2 (10:54→21:15)
[2018-04-18 12:00] VITALS: BP 138/74
[2018-04-18 14:05] VITALS: BP 134/75
[2018-04-18 17:00] VITALS: BP 131/75
[2018-04-18 22:00] VITALS: BP 127/70
[2018-04-18] MEDS ORDERED: INSULIN LANTUS (GLARGINE) 1 /0.01ml (100units/ml) SC SCH (22:00)
[2018-04-19] MEDS: ALBUTEROL SULF 2.5 MG/0.5ML(0.5%) NEB SOLN NEB SCH ×6 (02:02→22:16)
[2018-04-19] MEDS: IPRATROPIUM BROM 0.5 MG/2.5ML INH SOL NEB SCH ×6 (02:02→22:16)
[2018-04-19] MEDS: PROMETHAZINE HCL 25 MG/ML 1ML IV PRN ×5 (02:40→20:17)
[2018-04-19] MEDS: MORPHINE SULFATE 4 MG/ML SYR/VIAL IV PRN ×5 (02:41→20:23)
[2018-04-19 05:00] VITALS: BP 132/77
[2018-04-19 05:59] LABS: Hematocrit 31.6 % (36.0-46.0); Hemoglobin 10.5 g/dL (12.2-16.2); Mean Corpuscular Hemoglobin 30.3 pg (28.0-32.0); Mean Corpuscular Hgb Conc. 33.2 g/dL (32.0-36.0); Mean Corpuscular Volume 91.4 fL (80.0-100.0); Platelet Count (auto) 343 10^3/uL (140-450); Red Blood Cells 3.45 10^6/uL (4.0-5.20); Red Cell Distribution Width 14.8 % (11.8-14.3); White Blood Cell 21.8 10^3/uL (4.4-10.8)
[2018-04-19 06:04] LABS: Basophils % (manual) 0 (0.0-2.0); Blast Cells 0; Eosinophils % (manual) 0 (0-7); Metamyelocytes % 0; Monocytes % (manual) 0 (0-12); Promyelocytes % 0; Reactive Lymphocytes 0
[2018-04-19 06:19] LABS: BUN/Creatinine Ratio 32.9; Calcium 7.6 mg/dL (8.5-10.1); Potassium 3.6 mmol/L (3.5-5.1)
[2018-04-19] MEDS: BACLOFEN 10 MG TAB PO SCH ×3 (06:36→21:56)
[2018-04-19] MEDS: GABAPENTIN 300 MG CAP PO SCH ×3 (06:37→21:55)
[2018-04-19] MEDS: ACCU-CHEK COMFORT CURVE STRIP VI SCH ×4 (06:37→22:04)
[2018-04-19] MEDS: InsuLIN REG 1unit/0.01ml Soln (100units/ml) SC SCH ×4 (06:37→22:04)
[2018-04-19 06:55] LABS: Band Neutrophils % (manual) 4; Lymphocytes % (manual) 2 (10.0-50.0); Myelocytes % 1
[2018-04-19 09:10] VITALS: BP 113/63
[2018-04-19] MEDS: MORPHINE SULF 30 mg ER tab PO SCH ×2 (09:28→21:58)
[2018-04-19] MEDS: PANTOPRAZOLE 40 MG TAB PO SCH (10:00)
[2018-04-19] MEDS: hydrOXYzine 25 MG TAB or CAP PO SCH ×2 (10:00→21:57)
[2018-04-19] MEDS: methylPREDNISolone SOD SUCC 125 MG/2 ML VL IV SCH ×2 (10:17→21:54)
[2018-04-19] MEDS: ASPirin 81 mg TAB PO SCH (10:18)
[2018-04-19] MEDS: busPIRone HCL 10 MG TAB PO SCH ×2 (10:18→21:56)
[2018-04-19] MEDS: DULoxetine HCL 30 MG CAP PO SCH ×2 (10:18→21:57)
[2018-04-19] MEDS: POTASSIUM CHL 20 Meq TABLET PO SCH (10:19)
[2018-04-19] MEDS: APIXABAN 2.5 MG TAB PO SCH ×2 (11:20→21:57)
[2018-04-19 12:33] VITALS: BP 150/76
[2018-04-19] MEDS: CARVEDILOL 3.125 MG TAB PO SCH ×2 (12:48→21:58)
[2018-04-19] MEDS: FUROSEMIDE 40 MG TAB PO SCH (12:48)
[2018-04-19] MEDS: ACETYLCYSTEINE ORAL for CIN 20%(200MG/ML) 4ML PO SCH (13:12)
[2018-04-19 17:00] VITALS: BP 126/70
[2018-04-19] MEDS: diphenhdrAMINE HCL 25 MG CAP PO PRN (19:40)
[2018-04-19 21:30] VITALS: BP 102/64
[2018-04-19 21:34] VITALS: BP 143/68
[2018-04-19] MEDS: INSULIN LANTUS (GLARGINE) 1 /0.01ml (100units/ml) SC SCH (22:04)
[2018-04-20] MEDS: MORPHINE SULFATE 4 MG/ML SYR/VIAL IV PRN ×6 (01:00→22:32)
[2018-04-20] MEDS: PROMETHAZINE HCL 25 MG/ML 1ML IV PRN ×5 (01:00→22:36)
[2018-04-20] MEDS: ALBUTEROL SULF 2.5 MG/0.5ML(0.5%) NEB SOLN NEB SCH ×6 (02:00→22:17)
[2018-04-20] MEDS: IPRATROPIUM BROM 0.5 MG/2.5ML INH SOL NEB SCH ×6 (02:00→22:17)
[2018-04-20 04:35] VITALS: BP 128/76
[2018-04-20] MEDS: BACLOFEN 10 MG TAB PO SCH ×3 (05:18→21:28)
[2018-04-20] MEDS: GABAPENTIN 300 MG CAP PO SCH ×3 (05:18→21:30)
[2018-04-20] MEDS: InsuLIN REG 1unit/0.01ml Soln (100units/ml) SC SCH ×4 (06:15→21:38)
[2018-04-20] MEDS: ACCU-CHEK COMFORT CURVE STRIP VI SCH ×4 (06:16→21:38)
[2018-04-20 06:57] LABS: Hematocrit 31.7 % (36.0-46.0); Hemoglobin 10.6 g/dL (12.2-16.2); Mean Corpuscular Hemoglobin 30.4 pg (28.0-32.0); Mean Corpuscular Hgb Conc. 33.3 g/dL (32.0-36.0); Mean Corpuscular Volume 91.4 fL (80.0-100.0); Platelet Count (auto) 337 10^3/uL (140-450); Red Blood Cells 3.47 10^6/uL (4.0-5.20); Red Cell Distribution Width 14.8 % (11.8-14.3); White Blood Cell 20.5 10^3/uL (4.4-10.8)
[2018-04-20 07:08] LABS: Band Neutrophils % (manual) 0; Basophils % (manual) 0 (0.0-2.0); Blast Cells 0; Eosinophils % (manual) 0 (0-7); Metamyelocytes % 0; Myelocytes % 0; Promyelocytes % 0; Reactive Lymphocytes 0
[2018-04-20 07:17] LABS: BUN/Creatinine Ratio 32.5; Calcium 7.8 mg/dL (8.5-10.1); Potassium 3.6 mmol/L (3.5-5.1)
[2018-04-20] MEDS ORDERED: methylPREDNISolone SOD SUCC 40 MG/ML VL IV ONE (08:45)
[2018-04-20] MEDS: methylPREDNISolone SOD SUCC 40 MG/ML VL IV SCH ×3 (08:45→22:29)
[2018-04-20 09:00] VITALS: BP 132/77
[2018-04-20] MEDS: ASPirin 81 mg TAB PO SCH (09:30)
[2018-04-20] MEDS: DULoxetine HCL 30 MG CAP PO SCH ×2 (09:31→21:29)
[2018-04-20] MEDS: POTASSIUM CHL 20 Meq TABLET PO SCH (09:32)
[2018-04-20] MEDS: APIXABAN 2.5 MG TAB PO SCH ×2 (09:32→21:29)
[2018-04-20] MEDS: FUROSEMIDE 40 MG TAB PO SCH (09:32)
[2018-04-20] MEDS: PANTOPRAZOLE 40 MG TAB PO SCH (09:33)
[2018-04-20] MEDS: CARVEDILOL 3.125 MG TAB PO SCH ×2 (09:33→21:31)
[2018-04-20] MEDS: busPIRone HCL 10 MG TAB PO SCH ×2 (10:00→21:29)
[2018-04-20] MEDS: hydrOXYzine 25 MG TAB or CAP PO SCH ×2 (10:00→21:27)
[2018-04-20 10:33] LABS: Lymphocytes % (manual) 2 (10.0-50.0); Monocytes % (manual) 6 (0-12)
[2018-04-20] MEDS: MORPHINE SULF 30 mg ER tab PO SCH ×2 (11:54→21:30)
[2018-04-20 13:00] VITALS: BP 133/78
[2018-04-20 17:00] VITALS: BP 133/81
[2018-04-20] MEDS: diphenhdrAMINE HCL 25 MG CAP PO PRN (19:10)
[2018-04-20 21:35] VITALS: BP 120/60
[2018-04-20] MEDS: INSULIN LANTUS (GLARGINE) 1 /0.01ml (100units/ml) SC SCH (21:43)
[2018-04-21] MEDS: MORPHINE SULFATE 4 MG/ML SYR/VIAL IV PRN ×3 (02:30→11:03)
[2018-04-21] MEDS: PROMETHAZINE HCL 25 MG/ML 1ML IV PRN ×2 (02:30→06:10)
[2018-04-21] MEDS: ALBUTEROL SULF 2.5 MG/0.5ML(0.5%) NEB SOLN NEB SCH ×6 (02:49→22:43)
[2018-04-21] MEDS: IPRATROPIUM BROM 0.5 MG/2.5ML INH SOL NEB SCH ×6 (02:49→22:43)
[2018-04-21 05:32] VITALS: BP 135/78
[2018-04-21] MEDS: methylPREDNISolone SOD SUCC 40 MG/ML VL IV SCH (06:08)
[2018-04-21] MEDS: GABAPENTIN 300 MG CAP PO SCH ×3 (06:09→20:59)
[2018-04-21] MEDS: BACLOFEN 10 MG TAB PO SCH (06:12)
[2018-04-21] MEDS: ACCU-CHEK COMFORT CURVE STRIP VI SCH ×4 (06:26→21:21)
[2018-04-21] MEDS: InsuLIN REG 1unit/0.01ml Soln (100units/ml) SC SCH ×4 (06:26→21:20)
[2018-04-21 06:40] LABS: Basophils # (auto) 0 uL; Eosinophils # (auto) 0 uL; Hematocrit 31.8 % (36.0-46.0); Hemoglobin 10.3 g/dL (12.2-16.2); Lymphocytes # (auto) 0.4 uL; Lymphocytes % (auto) 2.2 % (10.0-50.0); Mean Corpuscular Hemoglobin 29.6 pg (28.0-32.0); Mean Corpuscular Hgb Conc. 32.3 g/dL (32.0-36.0); Mean Corpuscular Volume 91.7 fL (80.0-100.0); Monocytes # (auto) 0.9 uL; Monocytes % (auto) 5.3 % (0.0-12.0); Neutrophils # (auto) 16.1 uL; Neutrophils % (auto) 92.5 % (37.0-80.0); Platelet Count (auto) 295 10^3/uL (140-450); Red Blood Cells 3.46 10^6/uL (4.0-5.20); Red Cell Distribution Width 14.8 % (11.8-14.3); White Blood Cell 17.4 10^3/uL (4.4-10.8)
[2018-04-21 07:03] LABS: Calcium 7.9 mg/dL (8.5-10.1); Potassium 3.6 mmol/L (3.5-5.1)
[2018-04-21 07:13] LABS: BUN/Creatinine Ratio 32.4
[2018-04-21 08:40] VITALS: BP 135/78
[2018-04-21] MEDS ORDERED: PROCHLORPERAZINE EDISYLATE 5 MG/ML 2ML VIAL IV PRN (08:45)
[2018-04-21 08:47] VITALS: BP 123/73
[2018-04-21] MEDS: DULoxetine HCL 30 MG CAP PO SCH ×2 (09:40→21:01)
[2018-04-21] MEDS: FUROSEMIDE 40 MG TAB PO SCH (09:41)
[2018-04-21] MEDS: busPIRone HCL 10 MG TAB PO SCH ×2 (09:41→20:59)
[2018-04-21] MEDS: PANTOPRAZOLE 40 MG TAB PO SCH (09:42)
[2018-04-21] MEDS: CARVEDILOL 3.125 MG TAB PO SCH (09:42)
[2018-04-21] MEDS: hydrOXYzine 25 MG TAB or CAP PO SCH ×2 (09:42→21:00)
[2018-04-21] MEDS: ASPirin 81 mg TAB PO SCH (09:43)
[2018-04-21] MEDS: APIXABAN 2.5 MG TAB PO SCH ×2 (09:44→21:00)
[2018-04-21] MEDS: MORPHINE SULF 30 mg ER tab PO SCH ×3 (09:44→21:03)
[2018-04-21] MEDS: POTASSIUM CHL 20 Meq TABLET PO SCH (09:44)
[2018-04-21] MEDS ORDERED: POTASSIUM CHL 20 Meq TABLET PO ONE (11:45)
[2018-04-21] MEDS ORDERED: FUROSEMIDE 40 MG/4 ML VIAL IV ONE (11:45)
[2018-04-21 13:00] VITALS: BP 126/74
[2018-04-21] MEDS ORDERED: DOXYCYCLINE 100MG/250ML 250 ML IV ONE (13:30)
[2018-04-21] MEDS: diphenhdrAMINE HCL 25 MG CAP PO PRN (14:02)
[2018-04-21] MEDS: DOCUSATE SOD 100 MG CAP PO SCH ×2 (14:04→20:59)
[2018-04-21] MEDS: predniSONE 20 MG TAB PO SCH (14:15)
[2018-04-21 17:00] VITALS: BP 122/68
[2018-04-21] MEDS: MORPHINE SULFATE 10 MG/5 ML ORAL SOLN PO PRN (17:18)
[2018-04-21] MEDS: BACLOFEN 10 MG TAB PO PRN (21:00)
[2018-04-21] MEDS: INSULIN LANTUS (GLARGINE) 1 /0.01ml (100units/ml) SC SCH (21:20)
[2018-04-21 21:43] VITALS: BP 117/72
[2018-04-21] MEDS: DOXYCYCLINE 100MG/250ML 250 ML IV SCH (22:25)
[2018-04-22] MEDS: diphenhdrAMINE HCL 25 MG CAP PO PRN (00:44)
[2018-04-22] MEDS: MORPHINE SULFATE 10 MG/5 ML ORAL SOLN PO PRN ×3 (00:52→17:03)
[2018-04-22] MEDS: IPRATROPIUM BROM 0.5 MG/2.5ML INH SOL NEB SCH ×5 (02:46→22:45)
[2018-04-22] MEDS: ALBUTEROL SULF 2.5 MG/0.5ML(0.5%) NEB SOLN NEB SCH ×5 (02:46→22:45)
[2018-04-22 04:43] VITALS: BP 124/76
[2018-04-22] MEDS: GABAPENTIN 300 MG CAP PO SCH ×3 (05:14→21:01)
[2018-04-22 05:59] LABS: Basophils # (auto) 0.1 uL; Basophils % (auto) 0.3 % (0.0-2.0); Eosinophils # (auto) 0 uL; Hematocrit 31.8 % (36.0-46.0); Hemoglobin 10.7 g/dL (12.2-16.2); Lymphocytes # (auto) 0.6 uL; Lymphocytes % (auto) 2.9 % (10.0-50.0); Mean Corpuscular Hemoglobin 30.4 pg (28.0-32.0); Mean Corpuscular Hgb Conc. 33.5 g/dL (32.0-36.0); Mean Corpuscular Volume 90.9 fL (80.0-100.0); Monocytes # (auto) 1.6 uL; Monocytes % (auto) 8.1 % (0.0-12.0); Neutrophils # (auto) 17.2 uL; Neutrophils % (auto) 88.7 % (37.0-80.0); Platelet Count (auto) 296 10^3/uL (140-450); Red Cell Distribution Width 14.4 % (11.8-14.3); White Blood Cell 19.4 10^3/uL (4.4-10.8)
[2018-04-22] MEDS: ACCU-CHEK COMFORT CURVE STRIP VI SCH ×5 (06:20→21:35)
[2018-04-22] MEDS: InsuLIN REG 1unit/0.01ml Soln (100units/ml) SC SCH ×5 (06:21→21:37)
[2018-04-22 06:47] LABS: BUN/Creatinine Ratio 25.3; Calcium 7.9 mg/dL (8.5-10.1); Potassium 3.4 mmol/L (3.5-5.1)
[2018-04-22 09:00] VITALS: BP 117/70
[2018-04-22] MEDS: DOXYCYCLINE 100MG/250ML 250 ML IV SCH (10:46)
[2018-04-22] MEDS: DULoxetine HCL 30 MG CAP PO SCH ×2 (10:46→21:03)
[2018-04-22] MEDS: DOCUSATE SOD 100 MG CAP PO SCH ×2 (10:46→21:01)
[2018-04-22] MEDS: busPIRone HCL 10 MG TAB PO SCH ×2 (10:47→21:02)
[2018-04-22] MEDS: APIXABAN 2.5 MG TAB PO SCH ×2 (10:51→21:02)
[2018-04-22] MEDS: predniSONE 20 MG TAB PO SCH (10:51)
[2018-04-22] MEDS: FUROSEMIDE 40 MG/4 ML VIAL IV SCH (10:51)
[2018-04-22] MEDS: PANTOPRAZOLE 40 MG TAB PO SCH (10:52)
[2018-04-22] MEDS: MORPHINE SULF 30 mg ER tab PO SCH ×2 (10:52→21:03)
[2018-04-22] MEDS: hydrOXYzine 25 MG TAB or CAP PO SCH ×2 (10:53→21:02)
[2018-04-22] MEDS: BACLOFEN 10 MG TAB PO PRN ×2 (11:00→21:01)
[2018-04-22] MEDS: POTASSIUM CHL 20 Meq TABLET PO SCH (11:00)
[2018-04-22] MEDS ORDERED: VANCOMYCIN PER PHARMACY 0 MG IV SCH (11:30)
[2018-04-22] MEDS ORDERED: POTASSIUM CHL 20 Meq TABLET PO ONE (11:30)
[2018-04-22] MEDS: VANCOMYCIN 1,250 MG in D5W 5% 250 ML IV SCH (12:10)
[2018-04-22] MEDS: guaiFENesin 200 MG/10 ML UD PO SCH ×2 (12:23→18:01)
[2018-04-22 13:00] VITALS: BP 135/87
[2018-04-22] MEDS: cefTAZidime 1 GM in SODIUM CHL 0.9% 50 ML IV SCH ×2 (14:01→21:55)
[2018-04-22 17:25] VITALS: BP 150/85
[2018-04-22] MEDS ORDERED: DEXTROSE (50%) 50ML SYRG IV PRN (19:00)
[2018-04-22] MEDS: ONDANSETRON ODT 4 MG TAB PO PRN (21:04)
[2018-04-22] MEDS: INSULIN LANTUS (GLARGINE) 1 /0.01ml (100units/ml) SC SCH (21:35)
[2018-04-22 22:00] VITALS: BP 136/69
[2018-04-23] MEDS: guaiFENesin 200 MG/10 ML UD PO SCH ×5 (00:17→23:27)
[2018-04-23] MEDS: VANCOMYCIN 1,250 MG in D5W 5% 250 ML IV SCH ×3 (00:17→23:27)
[2018-04-23] MEDS: LACTULOSE 20Gm/30ML SOLN PO PRN (00:32)
[2018-04-23] MEDS: MORPHINE SULFATE 10 MG/5 ML ORAL SOLN PO PRN ×3 (00:33→17:18)
[2018-04-23] MEDS: diphenhdrAMINE HCL 25 MG CAP PO PRN ×2 (00:37→21:03)
[2018-04-23] MEDS: ALBUTEROL SULF 2.5 MG/0.5ML(0.5%) NEB SOLN NEB SCH ×6 (02:44→23:27)
[2018-04-23] MEDS: IPRATROPIUM BROM 0.5 MG/2.5ML INH SOL NEB SCH ×6 (02:44→23:27)
[2018-04-23] MEDS: GABAPENTIN 300 MG CAP PO SCH ×3 (04:56→21:03)
[2018-04-23] MEDS: InsuLIN REG 1unit/0.01ml Soln (100units/ml) SC SCH ×4 (04:59→21:04)
[2018-04-23] MEDS: ACCU-CHEK COMFORT CURVE STRIP VI SCH ×4 (04:59→21:05)
[2018-04-23] MEDS: cefTAZidime 1 GM in SODIUM CHL 0.9% 50 ML IV SCH ×3 (05:02→21:10)
[2018-04-23 05:38] VITALS: BP 126/75
[2018-04-23 05:44] LABS: Basophils # (auto) 0 uL; Basophils % (auto) 0.1 % (0.0-2.0); Eosinophils # (auto) 0 uL; Eosinophils % (auto) 0.2 % (0.0-7.0); Hematocrit 31.2 % (36.0-46.0); Hemoglobin 10.4 g/dL (12.2-16.2); Lymphocytes # (auto) 2.1 uL; Lymphocytes % (auto) 14.2 % (10.0-50.0); Mean Corpuscular Hemoglobin 30.7 pg (28.0-32.0); Mean Corpuscular Hgb Conc. 33.2 g/dL (32.0-36.0); Mean Corpuscular Volume 92.3 fL (80.0-100.0); Monocytes # (auto) 1.5 uL; Monocytes % (auto) 10.4 % (0.0-12.0); Neutrophils # (auto) 11.1 uL; Neutrophils % (auto) 75.1 % (37.0-80.0); Nucleated Red Blood Cells % 0.1 %; Platelet Count (auto) 246 10^3/uL (140-450); Red Blood Cells 3.38 10^6/uL (4.0-5.20); Red Cell Distribution Width 14.9 % (11.8-14.3); White Blood Cell 14.8 10^3/uL (4.4-10.8)
[2018-04-23 06:01] LABS: Albumin 2.9 g/dL (3.4-5.0); BUN/Creatinine Ratio 24.7; Bilirubin, Total 0.5 mg/dL (0.2-1.0); Calcium 7.5 mg/dL (8.5-10.1); Potassium 3.7 mmol/L (3.5-5.1); Total Protein 5.2 g/dL (6.4-8.2)
[2018-04-23] MEDS: BACLOFEN 10 MG TAB PO PRN ×2 (08:49→17:18)
[2018-04-23 09:00] VITALS: BP 117/67
[2018-04-23] MEDS: FUROSEMIDE 40 MG/4 ML VIAL IV SCH (09:53)
[2018-04-23] MEDS: predniSONE 20 MG TAB PO SCH (09:54)
[2018-04-23] MEDS: PANTOPRAZOLE 40 MG TAB PO SCH (09:54)
[2018-04-23] MEDS: hydrOXYzine 25 MG TAB or CAP PO SCH ×2 (09:54→21:02)
[2018-04-23] MEDS: POTASSIUM CHL 20 Meq TABLET PO SCH (09:54)
[2018-04-23] MEDS: APIXABAN 2.5 MG TAB PO SCH ×2 (09:55→21:03)
[2018-04-23] MEDS: busPIRone HCL 10 MG TAB PO SCH ×2 (09:55→21:02)
[2018-04-23] MEDS: MORPHINE SULF 30 mg ER tab PO SCH ×2 (09:55→21:04)
[2018-04-23] MEDS: DULoxetine HCL 30 MG CAP PO SCH ×2 (09:55→21:01)
[2018-04-23] MEDS: DOCUSATE SOD 100 MG CAP PO SCH ×2 (09:56→21:03)
[2018-04-23 12:42] VITALS: BP 118/71
[2018-04-23 17:07] VITALS: BP 115/71
[2018-04-23] MEDS: ONDANSETRON ODT 4 MG TAB PO PRN (21:02)
[2018-04-23] MEDS: INSULIN LANTUS (GLARGINE) 1 /0.01ml (100units/ml) SC SCH (21:05)
[2018-04-23 22:00] VITALS: BP 117/68
[2018-04-24] MEDS: BACLOFEN 10 MG TAB PO PRN ×2 (01:10→14:15)
[2018-04-24] MEDS: MORPHINE SULFATE 10 MG/5 ML ORAL SOLN PO PRN ×3 (01:11→18:48)
[2018-04-24] MEDS: IPRATROPIUM BROM 0.5 MG/2.5ML INH SOL NEB SCH ×6 (02:31→22:35)
[2018-04-24] MEDS: ALBUTEROL SULF 2.5 MG/0.5ML(0.5%) NEB SOLN NEB SCH ×6 (02:32→22:35)
[2018-04-24] MEDS: cefTAZidime 1 GM in SODIUM CHL 0.9% 50 ML IV SCH ×3 (05:16→21:44)
[2018-04-24] MEDS: GABAPENTIN 300 MG CAP PO SCH ×3 (05:16→21:35)
[2018-04-24] MEDS: guaiFENesin 200 MG/10 ML UD PO SCH ×3 (05:16→18:00)
[2018-04-24] MEDS: diphenhdrAMINE HCL 25 MG CAP PO PRN (05:35)
[2018-04-24] MEDS: InsuLIN REG 1unit/0.01ml Soln (100units/ml) SC SCH ×4 (05:36→21:58)
[2018-04-24] MEDS: ACCU-CHEK COMFORT CURVE STRIP VI SCH ×4 (05:36→21:55)
[2018-04-24 05:41] LABS: Basophils # (auto) 0 uL; Basophils % (auto) 0.1 % (0.0-2.0); Eosinophils # (auto) 0.1 uL; Eosinophils % (auto) 0.6 % (0.0-7.0); Hematocrit 31.3 % (36.0-46.0); Hemoglobin 10.3 g/dL (12.2-16.2); Lymphocytes % (auto) 15.9 % (10.0-50.0); Mean Corpuscular Hemoglobin 30.2 pg (28.0-32.0); Mean Corpuscular Volume 91.5 fL (80.0-100.0); Monocytes # (auto) 1.1 uL; Monocytes % (auto) 8.8 % (0.0-12.0); Neutrophils # (auto) 9.2 uL; Neutrophils % (auto) 74.6 % (37.0-80.0); Platelet Count (auto) 221 10^3/uL (140-450); Red Blood Cells 3.42 10^6/uL (4.0-5.20); Red Cell Distribution Width 14.8 % (11.8-14.3); White Blood Cell 12.4 10^3/uL (4.4-10.8)
[2018-04-24 05:52] VITALS: BP 115/61
[2018-04-24 05:57] LABS: BUN/Creatinine Ratio 23.7; Calcium 7.8 mg/dL (8.5-10.1)
[2018-04-24 08:29] VITALS: BP 115/61
[2018-04-24] MEDS: DULoxetine HCL 30 MG CAP PO SCH ×2 (09:07→21:37)
[2018-04-24] MEDS: busPIRone HCL 10 MG TAB PO SCH ×2 (09:08→21:37)
[2018-04-24] MEDS: hydrOXYzine 25 MG TAB or CAP PO SCH ×2 (09:08→21:36)
[2018-04-24] MEDS: APIXABAN 2.5 MG TAB PO SCH ×2 (09:09→21:35)
[2018-04-24] MEDS: PANTOPRAZOLE 40 MG TAB PO SCH (09:09)
[2018-04-24] MEDS: POTASSIUM CHL 20 Meq TABLET PO SCH (09:09)
[2018-04-24] MEDS: DOCUSATE SOD 100 MG CAP PO SCH ×2 (09:09→21:36)
[2018-04-24] MEDS: MORPHINE SULF 30 mg ER tab PO SCH ×2 (09:10→21:38)
[2018-04-24] MEDS: FUROSEMIDE 40 MG TAB PO SCH (09:10)
[2018-04-24] MEDS: predniSONE 20 MG TAB PO SCH (09:11)
[2018-04-24 09:25] VITALS: BP 120/63
[2018-04-24] MEDS: VANCOMYCIN 1,250 MG in D5W 5% 250 ML IV SCH (12:00)
[2018-04-24 13:00] VITALS: BP 118/69
[2018-04-24 17:00] VITALS: BP 127/69
[2018-04-24] MEDS: ONDANSETRON ODT 4 MG TAB PO PRN (21:57)
[2018-04-24] MEDS: INSULIN LANTUS (GLARGINE) 1 /0.01ml (100units/ml) SC SCH (21:59)
[2018-04-24 22:00] VITALS: BP 127/76
[2018-04-25] MEDS: guaiFENesin 200 MG/10 ML UD PO SCH ×4 (00:14→18:27)
[2018-04-25] MEDS: VANCOMYCIN 1,250 MG in D5W 5% 250 ML IV SCH ×2 (00:15→11:43)
[2018-04-25] MEDS: IPRATROPIUM BROM 0.5 MG/2.5ML INH SOL NEB SCH ×6 (02:30→22:06)
[2018-04-25] MEDS: ALBUTEROL SULF 2.5 MG/0.5ML(0.5%) NEB SOLN NEB SCH ×6 (02:30→22:06)
[2018-04-25] MEDS: MORPHINE SULFATE 10 MG/5 ML ORAL SOLN PO PRN ×3 (03:12→21:10)
[2018-04-25] MEDS: BACLOFEN 10 MG TAB PO PRN ×2 (03:17→17:12)
[2018-04-25] MEDS: diphenhdrAMINE HCL 25 MG CAP PO PRN ×5 (03:17→21:24)
[2018-04-25 05:00] VITALS: BP 124/73
[2018-04-25] MEDS: GABAPENTIN 300 MG CAP PO SCH ×3 (06:35→22:35)
[2018-04-25] MEDS: cefTAZidime 1 GM in SODIUM CHL 0.9% 50 ML IV SCH (06:35)
[2018-04-25] MEDS: ACCU-CHEK COMFORT CURVE STRIP VI SCH ×4 (06:36→22:27)
[2018-04-25] MEDS: InsuLIN REG 1unit/0.01ml Soln (100units/ml) SC SCH ×4 (06:36→22:00)
[2018-04-25 06:38] LABS: Basophils # (auto) 0 uL; Basophils % (auto) 0.2 % (0.0-2.0); Eosinophils # (auto) 0.1 uL; Eosinophils % (auto) 1.3 % (0.0-7.0); Hematocrit 31.2 % (36.0-46.0); Hemoglobin 10.6 g/dL (12.2-16.2); Lymphocytes % (auto) 18.7 % (10.0-50.0); Mean Corpuscular Hemoglobin 31.7 pg (28.0-32.0); Mean Corpuscular Hgb Conc. 34.1 g/dL (32.0-36.0); Mean Corpuscular Volume 93.1 fL (80.0-100.0); Monocytes # (auto) 0.8 uL; Monocytes % (auto) 7.8 % (0.0-12.0); Neutrophils # (auto) 7.6 uL; Platelet Count (auto) 187 10^3/uL (140-450); Red Blood Cells 3.35 10^6/uL (4.0-5.20); Red Cell Distribution Width 15.1 % (11.8-14.3); White Blood Cell 10.6 10^3/uL (4.4-10.8)
[2018-04-25 07:02] LABS: Calcium 7.9 mg/dL (8.5-10.1); Potassium 3.8 mmol/L (3.5-5.1)
[2018-04-25 08:52] VITALS: BP 119/74
[2018-04-25] MEDS: DULoxetine HCL 30 MG CAP PO SCH ×2 (09:41→22:36)
[2018-04-25] MEDS: APIXABAN 2.5 MG TAB PO SCH ×2 (09:42→22:37)
[2018-04-25] MEDS: PANTOPRAZOLE 40 MG TAB PO SCH (09:42)
[2018-04-25] MEDS: predniSONE 20 MG TAB PO SCH (09:42)
[2018-04-25] MEDS: busPIRone HCL 10 MG TAB PO SCH ×2 (09:42→22:37)
[2018-04-25] MEDS: POTASSIUM CHL 20 Meq TABLET PO SCH (09:43)
[2018-04-25] MEDS: hydrOXYzine 25 MG TAB or CAP PO SCH ×2 (09:43→22:34)
[2018-04-25] MEDS: MORPHINE SULF 30 mg ER tab PO SCH ×2 (09:43→22:36)
[2018-04-25] MEDS: DOCUSATE SOD 100 MG CAP PO SCH ×2 (09:43→22:38)
[2018-04-25] MEDS: FUROSEMIDE 40 MG TAB PO SCH (09:44)
[2018-04-25] MEDS ORDERED: FAMOTIDINE 20 MG TAB PO ONE (12:30)
[2018-04-25] MEDS ORDERED: CIPROFLOXACIN HCL 500 MG TAB PO ONE (12:30)
[2018-04-25 13:00] VITALS: BP 121/77
[2018-04-25 17:00] VITALS: BP 112/58
[2018-04-25] MEDS: ONDANSETRON ODT 4 MG TAB PO PRN (17:12)
[2018-04-25 22:00] VITALS: BP 119/57
[2018-04-25] MEDS: FAMOTIDINE 20 MG TAB PO SCH (22:34)
[2018-04-25] MEDS: CIPROFLOXACIN HCL 500 MG TAB PO SCH (22:37)
[2018-04-25] MEDS: INSULIN LANTUS (GLARGINE) 1 /0.01ml (100units/ml) SC SCH (22:39)
[2018-04-26] MEDS: VANCOMYCIN 1,250 MG in D5W 5% 250 ML IV SCH ×3 (00:01→23:54)
[2018-04-26] MEDS: IPRATROPIUM BROM 0.5 MG/2.5ML INH SOL NEB SCH ×6 (02:20→22:39)
[2018-04-26] MEDS: ALBUTEROL SULF 2.5 MG/0.5ML(0.5%) NEB SOLN NEB SCH ×6 (02:20→22:39)
[2018-04-26 05:00] VITALS: BP 106/67
[2018-04-26] MEDS: guaiFENesin 200 MG/10 ML UD PO SCH ×5 (06:15→23:54)
[2018-04-26] MEDS: GABAPENTIN 300 MG CAP PO SCH ×3 (06:15→22:05)
[2018-04-26] MEDS: MORPHINE SULFATE 10 MG/5 ML ORAL SOLN PO PRN ×3 (06:16→23:49)
[2018-04-26] MEDS: ACCU-CHEK COMFORT CURVE STRIP VI SCH ×4 (06:17→21:52)
[2018-04-26] MEDS: InsuLIN REG 1unit/0.01ml Soln (100units/ml) SC SCH ×4 (06:45→22:07)
[2018-04-26 07:39] LABS: BUN/Creatinine Ratio 18.3; Calcium 8.1 mg/dL (8.5-10.1); Potassium 3.5 mmol/L (3.5-5.1)
[2018-04-26 08:20] LABS: Basophils # (auto) 0 uL; Basophils % (auto) 0.1 % (0.0-2.0); Eosinophils # (auto) 0.1 uL; Eosinophils % (auto) 0.8 % (0.0-7.0); Hemoglobin 10.9 g/dL (12.2-16.2); Lymphocytes % (auto) 20.2 % (10.0-50.0); Mean Corpuscular Hemoglobin 30.9 pg (28.0-32.0); Mean Corpuscular Hgb Conc. 33.1 g/dL (32.0-36.0); Mean Corpuscular Volume 93.5 fL (80.0-100.0); Monocytes # (auto) 0.7 uL; Monocytes % (auto) 7.5 % (0.0-12.0); Neutrophils # (auto) 7.1 uL; Neutrophils % (auto) 71.4 % (37.0-80.0); Nucleated Red Blood Cells % 0.1 %; Platelet Count (auto) 184 10^3/uL (140-450); Red Blood Cells 3.53 10^6/uL (4.0-5.20); White Blood Cell 9.9 10^3/uL (4.4-10.8)
[2018-04-26 08:31] VITALS: BP 110/72
[2018-04-26] MEDS: diphenhdrAMINE HCL 25 MG CAP PO PRN ×4 (08:54→23:49)
[2018-04-26] MEDS: FAMOTIDINE 20 MG TAB PO SCH ×2 (09:42→22:06)
[2018-04-26] MEDS: DULoxetine HCL 30 MG CAP PO SCH ×2 (09:43→22:06)
[2018-04-26] MEDS: CIPROFLOXACIN HCL 500 MG TAB PO SCH ×2 (09:43→22:06)
[2018-04-26] MEDS: hydrOXYzine 25 MG TAB or CAP PO SCH ×2 (09:43→22:06)
[2018-04-26] MEDS: POTASSIUM CHL 20 Meq TABLET PO SCH (09:43)
[2018-04-26] MEDS: predniSONE 20 MG TAB PO SCH (09:44)
[2018-04-26] MEDS: APIXABAN 2.5 MG TAB PO SCH ×2 (09:44→22:07)
[2018-04-26] MEDS: FUROSEMIDE 40 MG TAB PO SCH (09:44)
[2018-04-26] MEDS: DOCUSATE SOD 100 MG CAP PO SCH ×2 (09:44→22:07)
[2018-04-26] MEDS: busPIRone HCL 10 MG TAB PO SCH ×2 (09:45→22:07)
[2018-04-26] MEDS: PANTOPRAZOLE 40 MG TAB PO SCH (09:45)
[2018-04-26] MEDS: MORPHINE SULF 30 mg ER tab PO SCH ×2 (09:47→22:06)
[2018-04-26] MEDS: ONDANSETRON ODT 4 MG TAB PO PRN ×2 (12:12→18:51)
[2018-04-26 13:00] VITALS: BP 111/69
[2018-04-26 17:03] VITALS: BP 131/71
[2018-04-26 22:00] VITALS: BP 130/60
[2018-04-26] MEDS: BACLOFEN 10 MG TAB PO PRN (22:06)
[2018-04-26] MEDS: INSULIN LANTUS (GLARGINE) 1 /0.01ml (100units/ml) SC SCH (22:07)
[2018-04-27] MEDS: ALBUTEROL SULF 2.5 MG/0.5ML(0.5%) NEB SOLN NEB SCH ×4 (02:34→14:04)
[2018-04-27] MEDS: IPRATROPIUM BROM 0.5 MG/2.5ML INH SOL NEB SCH ×4 (02:34→14:04)
[2018-04-27 05:00] VITALS: BP 119/72
[2018-04-27] MEDS: guaiFENesin 200 MG/10 ML UD PO SCH ×2 (06:04→11:41)
[2018-04-27] MEDS: GABAPENTIN 300 MG CAP PO SCH (06:05)
[2018-04-27] MEDS: ONDANSETRON ODT 4 MG TAB PO PRN (06:05)
[2018-04-27] MEDS: diphenhdrAMINE HCL 25 MG CAP PO PRN (06:05)
[2018-04-27] MEDS: InsuLIN REG 1unit/0.01ml Soln (100units/ml) SC SCH ×2 (06:09→11:41)
[2018-04-27] MEDS: ACCU-CHEK COMFORT CURVE STRIP VI SCH ×2 (06:09→11:41)
[2018-04-27 08:50] VITALS: BP 129/78
[2018-04-27] MEDS: predniSONE 20 MG TAB PO SCH (08:53)
[2018-04-27] MEDS: DOCUSATE SOD 100 MG CAP PO SCH (08:54)
[2018-04-27] MEDS: CIPROFLOXACIN HCL 500 MG TAB PO SCH (08:54)
[2018-04-27] MEDS: busPIRone HCL 10 MG TAB PO SCH (08:54)
[2018-04-27] MEDS: POTASSIUM CHL 20 Meq TABLET PO SCH (08:55)
[2018-04-27] MEDS: DULoxetine HCL 30 MG CAP PO SCH (08:55)
[2018-04-27] MEDS: APIXABAN 2.5 MG TAB PO SCH (08:55)
[2018-04-27] MEDS: MORPHINE SULF 30 mg ER tab PO SCH (08:56)
[2018-04-27] MEDS: FAMOTIDINE 20 MG TAB PO SCH (08:56)
[2018-04-27] MEDS: hydrOXYzine 25 MG TAB or CAP PO SCH (08:56)
[2018-04-27] MEDS: FUROSEMIDE 40 MG TAB PO SCH (08:56)
[2018-04-27] MEDS: PANTOPRAZOLE 40 MG TAB PO SCH (08:56)
[2018-04-27 09:07] VITALS: BP 127/79
[2018-04-27] MEDS: MORPHINE SULFATE 10 MG/5 ML ORAL SOLN PO PRN (11:40)
[2018-04-27] MEDS: VANCOMYCIN 1,250 MG in D5W 5% 250 ML IV SCH (11:55)
[2018-04-27] MEDS ORDERED: VANCOMYCIN 1,250 MG in D5W 5% 250 ML IV SCH (22:00)
== END 2018-04-27 17:18 | disposition home or self-care (01) | DRG 720 ==
LOC: ER 12:45 → EDBD 12:45 → TELE 12:46 → TELE-WESTW 18:54 → WEST WING 04-10 23:16
PROVIDERS: ADMIT Internal Medicine; ATTEND Internal Medicine
DX: A41.9 Sepsis, unspecified organism (principal); J96.20 Acute and chronic respiratory failure, unspecified whether with hypoxia or hypercapnia; I50.33 Acute on chronic diastolic (congestive) heart failure; J15.6 Pneumonia due to other Gram-negative bacteria; I27.20 Pulmonary hypertension, unspecified; I11.0 Hypertensive heart disease with heart failure; E66.01 Morbid (severe) obesity due to excess calories; J44.0 Chronic obstructive pulmonary disease with (acute) lower respiratory infection; F11.20 Opioid dependence, uncomplicated; Z99.81 Dependence on supplemental oxygen; F41.9 Anxiety disorder, unspecified; G89.4 Chronic pain syndrome; J44.1 Chronic obstructive pulmonary disease with (acute) exacerbation; R73.9 Hyperglycemia, unspecified; N92.0 Excessive and frequent menstruation with regular cycle; D64.9 Anemia, unspecified; T38.0X5A Adverse effect of glucocorticoids and synthetic analogues, initial encounter; D72.829 Elevated white blood cell count, unspecified; Z80.3 Family history of malignant neoplasm of breast; Z80.8 Family history of malignant neoplasm of other organs or systems; Z81.8 Family history of other mental and behavioral disorders; Z82.5 Family history of asthma and other chronic lower respiratory diseases; Z83.3 Family history of diabetes mellitus; Z90.49 Acquired absence of other specified parts of digestive tract; Z79.899 Other long term (current) drug therapy; Z68.42 Body mass index [BMI] 45.0-49.9, adult; Z84.89 Family history of other specified conditions; Z88.1 Allergy status to other antibiotic agents; Z88.8 Allergy status to other drugs, medicaments and biological substances; Z79.82 Long term (current) use of aspirin
CPT/HCPCS: 36415; 71045; 76705; 76856; 80048; 80053; 80202; 80307; 82550; 82962; 83036; 83605; 83735; 83880; 84443; 84484; 85007; 85025; 85027; 85379; 85610; 85652; 85730; 86141; 87040; 87081; 87086; 93005; 93306; 94640; 96374; 96375; 97110; 97116; 97530; A6257; J1815; J1956; J2405; J3490; J7060; Q0162

== ENCOUNTER 2018-05-17 11:53 | Observation (INO) | payer MEDICAID ==
[~2018-05-17] VITALS: Ht 165.1 cm; Wt 127.0 kg
[~2018-05-17 11:53] MED LIST changes: -ASPI-231 PO; +BACL10TA PO; -BACL20TA PO; +BUSP15TA60 PO; -CIPR-173 PO; +DIVA500T59 PO; -DOXY-216 PO; +HYDR50TA69 PO; -MORP15TA PO; +MORP30TA PO; +MORP60TA25 PO; -TOPI50TA32 PO
[2018-05-17] MEDS ORDERED: ONDANSETRON HCL 4 MG/2 ML VIAL IV ONE (12:45)
[2018-05-17] MEDS ORDERED: MORPHINE SULF INJ 2 MG/ML SYRINGE 1ML IV ONE (12:45)
[2018-05-17 13:41] LABS: White Blood Cell 12.8 10^3/uL (4.4-10.8)
[2018-05-17 13:44] LABS: Hematocrit 33.5 % (36.0-46.0); Mean Corpuscular Hgb Conc. 32.8 g/dL (32.0-36.0); Mean Corpuscular Volume 91.6 fL (80.0-100.0); Platelet Count (auto) 533 10^3/uL (140-450); Red Blood Cells 3.66 10^6/uL (4.0-5.20); Red Cell Distribution Width 15.3 % (11.8-14.3)
[2018-05-17 14:05] LABS: Albumin 3.3 g/dL (3.4-5.0); BUN/Creatinine Ratio 10.3; Bilirubin, Total 0.3 mg/dL (0.2-1.0); Calcium 8.6 mg/dL (8.5-10.1); Potassium 3.3 mmol/L (3.5-5.1); Total Protein 6.9 g/dL (6.4-8.2)
[2018-05-17 14:11] LABS: Magnesium 2.4 mg/dL (1.6-2.6)
[2018-05-17 14:22] LABS: Band Neutrophils % (manual) 0; Basophils % (manual) 0 (0.0-2.0); Blast Cells 0; Metamyelocytes % 0; Myelocytes % 0; Promyelocytes % 0; Reactive Lymphocytes 0
[2018-05-17] MEDS ORDERED: BACLOFEN 10 MG TAB PO ONE (14:30)
[2018-05-17 14:35] LABS: Eosinophils % (manual) 2 (0-7); Lymphocytes % (manual) 19 (10.0-50.0); Monocytes % (manual) 17 (0-12)
[2018-05-17] MEDS ORDERED: FUROSEMIDE 20 MG/2 ML VIAL IV ONE (14:45)
[2018-05-17] MEDS ORDERED: POTASSIUM CHL 20 Meq TABLET PO ONE (14:45)
[2018-05-17] MEDS ORDERED: cefTRIAXone 1GM/10ml IVPUSH 10 ML IV ONE (14:45)
[2018-05-17 14:48] LABS: INR 0.97 (0.9-1.15); Partial Thromboplastin Time 28.7 sec (23.78-33.04); Prothrombin Time 10.4 sec (9.27-12.13)
[2018-05-17 16:09] VITALS: BP 110/68
== END 2018-05-17 18:01 | disposition home or self-care (01) | DRG 140 ==
LOC: ER 11:53 → OVERFLOW 11:54 → ER 18:01
PROVIDERS: ADMIT Family Medicine; ATTEND Family Medicine
DX: J42 Unspecified chronic bronchitis (principal); I27.20 Pulmonary hypertension, unspecified; I11.0 Hypertensive heart disease with heart failure; I50.9 Heart failure, unspecified; E87.6 Hypokalemia; D50.9 Iron deficiency anemia, unspecified; F41.9 Anxiety disorder, unspecified; G89.29 Other chronic pain; M54.9 Dorsalgia, unspecified; G43.909 Migraine, unspecified, not intractable, without status migrainosus; M79.7 Fibromyalgia
CPT/HCPCS: 36415; 71045; 80053; 83605; 83735; 83880; 84443; 84484; 85007; 85027; 85610; 85730; 87040; 93005; 96374; 96375; 99285; G0378; J0696; J1940; J2270; J2405

== ENCOUNTER 2018-09-21 14:56 | Emergency (ER) | payer MEDICAID ==
[~2018-09-21] VITALS: Ht 165.1 cm; Wt 126.6 kg
[2018-09-21 15:05] VITALS: BP 111/42
[2018-09-21 16:29] LABS: Basophils # (auto) 0 uL; Basophils % (auto) 0.3 % (0.0-2.0); Eosinophils # (auto) 0.2 uL; Eosinophils % (auto) 2.2 % (0.0-7.0); Hematocrit 35.4 % (36.0-46.0); Hemoglobin 11.5 g/dL (12.2-16.2); Lymphocytes # (auto) 2.2 uL; Lymphocytes % (auto) 19.6 % (10.0-50.0); Mean Corpuscular Hemoglobin 27.5 pg (28.0-32.0); Mean Corpuscular Hgb Conc. 32.5 g/dL (32.0-36.0); Mean Corpuscular Volume 84.7 fL (80.0-100.0); Monocytes # (auto) 1.5 uL; Monocytes % (auto) 13.7 % (0.0-12.0); Neutrophils # (auto) 7.1 uL; Neutrophils % (auto) 64.2 % (37.0-80.0); Nucleated Red Blood Cells % 0.1 %; Platelet Count (auto) 334 10^3/uL (140-450); Red Blood Cells 4.18 10^6/uL (4.0-5.20); Red Cell Distribution Width 17.4 % (11.8-14.3)
[2018-09-21 16:42] LABS: Alanine Aminotransferase 30 U/L (13-56); Albumin 3.5 g/dL (3.4-5.0); Anion Gap 4 (5-15); Aspartate Aminotransferase 19 U/L (15-37); BUN/Creatinine Ratio 12.8; Blood Urea Nitrogen 10 mg/dL (7-18); Calcium 8.4 mg/dL (8.5-10.1); Carbon Dioxide 29 mmol/L (21-32); Chloride 105 mmol/L (98-107); GFR African American > 60 mL/min; GFR Non-African American > 60 mL/min; Glucose 73 mg/dL (74-106); Sodium 138 mmol/L (136-145)
[2018-09-21 16:44] LABS: Alkaline Phosphatase 85 U/L (45-117); Bilirubin, Total 0.2 mg/dL (0.2-1.0); Total Protein 6.8 g/dL (6.4-8.2)
== END 2018-09-21 23:37 | disposition left against medical advice (07) ==
LOC: ER 15:00
DX: R06.02 Shortness of breath (principal); R05 Cough; Z53.21 Procedure and treatment not carried out due to patient leaving prior to being seen by health care provider
CPT/HCPCS: 36415; 71046; 80053; 85025; 93005

== ENCOUNTER 2018-09-23 10:57 | Emergency (ER) | payer MEDICAID ==
[~2018-09-23] VITALS: Ht 165.1 cm; Wt 126.6 kg
[2018-09-23 11:51] LABS: Basophils # (auto) 0 uL; Basophils % (auto) 0.4 % (0.0-2.0); Eosinophils # (auto) 0.2 uL; Eosinophils % (auto) 2.4 % (0.0-7.0); Hematocrit 34.7 % (36.0-46.0); Hemoglobin 11.5 g/dL (12.2-16.2); Mean Corpuscular Hemoglobin 27.6 pg (28.0-32.0); Mean Corpuscular Volume 83.7 fL (80.0-100.0); Monocytes % (auto) 10.4 % (0.0-12.0); Neutrophils # (auto) 6.1 uL; Neutrophils % (auto) 65.8 % (37.0-80.0); Platelet Count (auto) 328 10^3/uL (140-450); Red Blood Cells 4.15 10^6/uL (4.0-5.20); Red Cell Distribution Width 17.4 % (11.8-14.3); White Blood Cell 9.3 10^3/uL (4.4-10.8)
[2018-09-23 12:04] LABS: INR 0.9 (0.9-1.15); Partial Thromboplastin Time 29.6 sec (23.78-33.04); Prothrombin Time 9.7 sec (9.27-12.13)
[2018-09-23 12:08] LABS: Alanine Aminotransferase 31 U/L (13-56); Albumin 3.4 g/dL (3.4-5.0); Anion Gap 2 (5-15); Blood Urea Nitrogen 11 mg/dL (7-18); Calcium 8.5 mg/dL (8.5-10.1); Carbon Dioxide 33 mmol/L (21-32); Chloride 104 mmol/L (98-107); Glucose 92 mg/dL (74-106); Potassium 4.1 mmol/L (3.5-5.1); Sodium 139 mmol/L (136-145)
[2018-09-23 12:13] LABS: Alkaline Phosphatase 89 U/L (45-117); Aspartate Aminotransferase 19 U/L (15-37); BUN/Creatinine Ratio 13.8; Bilirubin, Total 0.3 mg/dL (0.2-1.0); GFR African American > 60 mL/min; GFR Non-African American > 60 mL/min; Total Protein 6.6 g/dL (6.4-8.2)
[2018-09-23] MEDS ORDERED: KETOROLAC TROMETH 30 MG/ML 1ML VIAL IV ONE (13:00)
[2018-09-23] MEDS ORDERED: LACTULOSE 20Gm/30ML SOLN PO PRN (13:15)
[2018-09-23] MEDS ORDERED: BUTALBITAL ASPIRIN CAFFEINE PO PRN (13:15)
[2018-09-23] MEDS ORDERED: PROMETHAZINE HCL 25 MG/ML 1ML IV PRN (13:15)
[2018-09-23] MEDS ORDERED: NITROGLYCERIN 0.4 MG SL TAB SL PRN (13:15)
[2018-09-23] MEDS ORDERED: HYDROcodone-ACET 5/325MG TAB PO PRN (13:15)
[2018-09-23] MEDS ORDERED: BACLOFEN 10 MG TAB PO PRN (13:15)
[2018-09-23] MEDS ORDERED: ACETAMINOPHEN 500 MG TAB PO PRN (13:15)
[2018-09-23] MEDS ORDERED: ALBUTEROL SULF 2.5 MG/0.5ML(0.5%) NEB SOLN NEB PRN (13:15)
[2018-09-23] MEDS ORDERED: LORazepam 0.5 MG TAB PO PRN (13:15)
[2018-09-23] MEDS ORDERED: MORPHINE SULFATE 4 MG/ML SYR/VIAL IV PRN ×2 (13:15)
[2018-09-23] MEDS ORDERED: TEMAZEPAM 15 MG CAP PO PRN (13:15)
[2018-09-23] MEDS ORDERED: OSELTAMIVIR 75 MG CAP PO ONE (13:15)
[2018-09-23 13:37] LABS: Lactic Acid w/Reflex 2.2 mmol/L (0.4-2.0)
[2018-09-23] MEDS ORDERED: SODIUM CHLOR 0.9% PF (SALINE LOCK) 10ML VIAL/SYR IV SCH (14:00)
[2018-09-23] MEDS ORDERED: GABAPENTIN 900 MG PO SCH (14:00)
[2018-09-23 14:49] VITALS: BP 109/72
[2018-09-23] MEDS ORDERED: methylPREDNISolone SOD SUCC 40 MG/ML VL IV SCH (18:00)
[2018-09-23] MEDS ORDERED: IPRATROPIUM BROM 0.5 MG/2.5ML INH SOL NEB SCH (18:00)
[2018-09-23] MEDS ORDERED: ALBUTEROL SULF 2.5 MG/0.5ML(0.5%) NEB SOLN NEB SCH (18:00)
[2018-09-23] MEDS ORDERED: busPIRone HCL 10 MG TAB PO SCH (22:00)
[2018-09-23] MEDS ORDERED: MORPHINE SULFATE 30 MG PO SCH (22:00)
[2018-09-23] MEDS ORDERED: hydrOXYzine 25 MG TAB or CAP PO SCH (22:00)
[2018-09-23] MEDS ORDERED: DULoxetine HCL 30 MG CAP PO SCH (22:00)
[2018-09-23] MEDS ORDERED: OSELTAMIVIR 75 MG CAP PO SCH (22:00)
[2018-09-24] MEDS ORDERED: FAMOTIDINE 20 MG TAB PO SCH (10:00)
[2018-09-24] MEDS ORDERED: ENALAPRIL MALEATE 2.5 MG TAB PO SCH (10:00)
[2018-09-24] MEDS ORDERED: FUROSEMIDE 40 MG TAB PO SCH (10:00)
[2018-09-24] MEDS ORDERED: LEVOFLOXACIN 500MG 100 ML IV SCH (10:00)
[2018-09-24] MEDS ORDERED: ENOXAPARIN SOD 40 MG/0.4 ML SYRINGE SC SCH (10:00)
[2018-09-24] MEDS ORDERED: PANTOPRAZOLE 40 MG TAB PO SCH (10:00)
== END 2018-09-23 15:05 | disposition home or self-care (01) ==
LOC: ER 10:58 → TELE 13:11 → UNDOADMIN 13:11 → ER 15:05
DX: J44.1 Chronic obstructive pulmonary disease with (acute) exacerbation (principal); I11.0 Hypertensive heart disease with heart failure; I50.9 Heart failure, unspecified; Z90.49 Acquired absence of other specified parts of digestive tract
CPT/HCPCS: 36415; 71250; 80053; 82550; 83605; 83880; 84443; 84484; 85025; 85610; 85730; 87040; 87804; 93005; 93970; 96374; 99284; J1885

== ENCOUNTER 2018-11-28 14:12 | Emergency (ER) | payer MEDICAID ==
[~2018-11-28] VITALS: Ht 165.1 cm; Wt 117.9 kg
[2018-11-28 14:57] LABS: Basophils # (auto) 0.1 uL; Basophils % (auto) 0.5 % (0.0-2.0); Eosinophils # (auto) 0.3 uL; Eosinophils % (auto) 2.2 % (0.0-7.0); Hematocrit 37.6 % (36.0-46.0); Hemoglobin 12.3 g/dL (12.2-16.2); Lymphocytes # (auto) 2.3 uL; Lymphocytes % (auto) 19.8 % (10.0-50.0); Mean Corpuscular Hemoglobin 28.4 pg (28.0-32.0); Mean Corpuscular Hgb Conc. 32.8 g/dL (32.0-36.0); Mean Corpuscular Volume 86.6 fL (80.0-100.0); Monocytes # (auto) 1.2 uL; Monocytes % (auto) 10.2 % (0.0-12.0); Neutrophils # (auto) 7.7 uL; Neutrophils % (auto) 67.3 % (37.0-80.0); Nucleated Red Blood Cells % 0.1 %; Platelet Count (auto) 353 10^3/uL (140-450); Red Blood Cells 4.34 10^6/uL (4.0-5.20); Red Cell Distribution Width 15.6 % (11.8-14.3); White Blood Cell 11.4 10^3/uL (4.4-10.8)
[2018-11-28 15:16] LABS: Albumin 3.7 g/dL (3.4-5.0); Calcium 9.1 mg/dL (8.5-10.1); Potassium 4.2 mmol/L (3.5-5.1)
[2018-11-28 15:18] LABS: BUN/Creatinine Ratio 12.8; Bilirubin, Total 0.3 mg/dL (0.2-1.0)
[2018-11-29] MEDS ORDERED: MORPHINE SULFATE 4 MG/ML SYR/VIAL IV ONE (05:30)
[2018-11-29] MEDS ORDERED: ALBUTEROL SULF 2.5 MG/0.5ML(0.5%) NEB SOLN NEB ONE ×2 (05:30→07:45)
[2018-11-29] MEDS ORDERED: IPRATROPIUM BROM 0.5 MG/2.5ML INH SOL NEB ONE ×2 (05:30→07:45)
[2018-11-29] MEDS ORDERED: ONDANSETRON HCL 4 MG/2 ML VIAL IV ONE ×2 (05:30→08:15)
[2018-11-29] MEDS ORDERED: FUROSEMIDE 40 MG/4 ML VIAL IV ONE (07:45)
[2018-11-29] MEDS ORDERED: methylPREDNISolone SOD SUCC 125 MG/2 ML VL IV ONE (07:45)
[2018-11-29] MEDS ORDERED: MORPHINE SULF INJ 2 MG/ML SYRINGE 1ML IV ONE (08:15)
[2018-11-29 08:34] VITALS: BP 131/61
== END 2018-11-29 10:13 | disposition home or self-care (01) ==
LOC: ER 14:14
DX: J44.1 Chronic obstructive pulmonary disease with (acute) exacerbation (principal); I11.0 Hypertensive heart disease with heart failure; I50.9 Heart failure, unspecified; Z90.49 Acquired absence of other specified parts of digestive tract; Z87.440 Personal history of urinary (tract) infections
CPT/HCPCS: 36415; 71046; 80053; 84484; 85025; 94640; 96374; 96375; 96376; 99284; J1940; J2270; J2405; J2930; J7611; J7644

== ENCOUNTER 2019-10-31 09:36 | Inpatient (IN) | payer MEDICAID ==
[~2019-10-31] VITALS: Ht 152.4 cm; Wt 142.6 kg
[~2019-10-31 09:36] MED LIST changes: -BACL10TA PO; +BACL20TA PO; -BUTACAP35 PO; +BUTAPT PO; +CHOL20007 PO; +CLON0.5T3 PO; -DIVA500T59 PO; -DOCU-94 PO; -FURO40TA PO; +FURO80TA3 PO; +LEVO750T2 PO; -LORA1TAB12 PO; +MORP30TA5 PO; -MORP60TA25 PO; +OXYB5TAB61 PO; +POTA99TA3 PO; +PROP80CA43 PO
[2019-10-31 10:54] LABS: Basophils # (auto) 0 10 ^3/uL (0-0.2); Eosinophils # (auto) 0.1 10 ^3/uL (0-0.8); Eosinophils % (auto) 0.7 % (0.0-7.0); Mean Corpuscular Hemoglobin 24.2 pg (28.0-32.0); Monocytes # (auto) 1.1 10 ^3/uL (0-1.3)
[2019-10-31 10:56] LABS: Basophils % (auto) 0.4 % (0.0-2.0); Hemoglobin 9.3 g/dL (12.2-16.2); Lymphocytes % (auto) 11.4 % (10.0-50.0); Mean Corpuscular Hgb Conc. 31.1 g/dL (32.0-36.0); Mean Corpuscular Volume 77.9 fL (80.0-100.0); Monocytes % (auto) 12.8 % (0.0-12.0); Neutrophils # (auto) 6.6 10 ^3/uL (1.6-8.6); Neutrophils % (auto) 74.7 % (37.0-80.0); Platelet Count (auto) 432 10^3/uL (140-450); Red Blood Cells 3.85 10^6/uL (4.0-5.20); Red Cell Distribution Width 16.5 % (11.8-14.3); White Blood Cell 8.9 10^3/uL (4.4-10.8)
[2019-10-31 11:13] LABS: Albumin 3.5 g/dL (3.4-5.0); Anion Gap 6 (5-15); Blood Urea Nitrogen 10 mg/dL (7-18); Calcium 8.7 mg/dL (8.5-10.1); Carbon Dioxide 26 mmol/L (21-32); Chloride 104 mmol/L (98-107); Glucose 182 mg/dL (74-106); INR 0.94 (0.9-1.15); Partial Thromboplastin Time 26.2 sec (23.64-32.05); Potassium 3.8 mmol/L (3.5-5.1); Sodium 136 mmol/L (136-145)
[2019-10-31 11:19] LABS: Alanine Aminotransferase 231 U/L (13-56); Alkaline Phosphatase 278 U/L (45-117); Aspartate Aminotransferase 265 U/L (15-37); BUN/Creatinine Ratio 13.3; Bilirubin, Total 1.7 mg/dL (0.2-1.0); GFR African American 116 mL/min; GFR Non-African American 96 mL/min; Total Protein 7.4 g/dL (6.4-8.2)
[2019-10-31] MEDS ORDERED: HYDROmorphone HCL 2 MG/ML VL IV ONE (12:15)
[2019-10-31] MEDS ORDERED: ONDANSETRON HCL 4 MG/2 ML VIAL IV ONE (12:15)
[2019-10-31] MEDS ORDERED: NITROGLYCERIN 0.4 MG SL TAB SL PRN (14:00)
[2019-10-31] MEDS ORDERED: MORPHINE SULF INJ 2 MG/ML SYRINGE 1ML IV PRN (14:00)
[2019-10-31] MEDS: GABAPENTIN 300 MG CAP PO SCH ×2 (14:21→21:11)
[2019-10-31] MEDS: BACLOFEN 10 MG TAB PO SCH ×2 (14:21→21:12)
[2019-10-31 14:57] LABS: Urine WBC None Seen /hpf (0 - 5)
[2019-10-31 15:10] LABS: Urine Bacteria NONE SEEN /hpf (None Seen); Urine Blood Negative /uL (Negative); Urine Mucus FEW (None Seen); Urine Specific Gravity 1.029 (1.001-1.035)
[2019-10-31] MEDS ORDERED: LORazepam 2MG/ML-1ML VIAL IV ONE (16:00)
[2019-10-31] MEDS: HYDROmorphone HCL 2 MG/ML VL IV PRN ×3 (16:06→21:21)
[2019-10-31] MEDS: hydrOXYzine 25 MG TAB or CAP PO SCH ×2 (17:51→21:11)
--- NOTE | 2019-10-31 19:47 | NUR ---
received pt from day rn poc reviewed
[2019-10-31] MEDS ORDERED: BUTACAP35 PO (20:18)
[2019-10-31] MEDS ORDERED: POTA10TA51 PO (20:18)
[2019-10-31] MEDS ORDERED: MORP30TA PO (20:18)
[2019-10-31] MEDS: DULoxetine HCL 30 MG CAP PO SCH (21:10)
[2019-10-31] MEDS: busPIRone HCL 10 MG TAB PO SCH (21:12)
[2019-10-31] MEDS: MORPHINE SULF 30 mg ER tab PO SCH ×2 (21:17→23:03)
[2019-10-31 21:54] VITALS: BP 141/72
[2019-10-31] MEDS: clonazePAM 0.5 MG TAB PO SCH (22:11)
--- NOTE | 2019-11-01 00:32 | NUR ---
awoke assist to bsc c/o pain 04/08 will medicate as ordered
[2019-11-01] MEDS: HYDROmorphone HCL 2 MG/ML VL IV PRN ×5 (03:47→21:12)
--- NOTE | 2019-11-01 04:30 | NUR ---
awoke assist to bsc c/o abd pain 04/08 medicated as ordered
[2019-11-01 04:54] VITALS: BP 110/68
[2019-11-01 05:25] LABS: Basophils # (auto) 0 10 ^3/uL (0-0.2); Basophils % (auto) 0.4 % (0.0-2.0); Eosinophils # (auto) 0.2 10 ^3/uL (0-0.8); Eosinophils % (auto) 1.8 % (0.0-7.0); Hematocrit 27.9 % (36.0-46.0); Lymphocytes # (auto) 1.2 10 ^3/uL (0.4-5.4); Lymphocytes % (auto) 12.9 % (10.0-50.0); Mean Corpuscular Hemoglobin 24.7 pg (28.0-32.0); Mean Corpuscular Hgb Conc. 32.1 g/dL (32.0-36.0); Mean Corpuscular Volume 76.9 fL (80.0-100.0); Monocytes # (auto) 1.4 10 ^3/uL (0-1.3); Monocytes % (auto) 15.4 % (0.0-12.0); Neutrophils # (auto) 6.5 10 ^3/uL (1.6-8.6); Neutrophils % (auto) 69.5 % (37.0-80.0); Nucleated Red Blood Cells % 0.1 %; Platelet Count (auto) 362 10^3/uL (140-450); Red Blood Cells 3.62 10^6/uL (4.0-5.20); Red Cell Distribution Width 16.3 % (11.8-14.3); White Blood Cell 9.3 10^3/uL (4.4-10.8)
[2019-11-01 05:40] LABS: INR 0.96 (0.9-1.15); Partial Thromboplastin Time 25.3 sec (23.64-32.05)
[2019-11-01 05:47] LABS: Albumin 3.2 g/dL (3.4-5.0); Calcium 8.5 mg/dL (8.5-10.1); Potassium 3.6 mmol/L (3.5-5.1)
[2019-11-01 05:52] LABS: BUN/Creatinine Ratio 12.2; Bilirubin, Total 2.7 mg/dL (0.2-1.0); Total Protein 6.7 g/dL (6.4-8.2)
[2019-11-01] MEDS: hydrOXYzine 25 MG TAB or CAP PO SCH ×4 (05:55→21:12)
[2019-11-01] MEDS: BACLOFEN 10 MG TAB PO SCH ×3 (05:55→21:12)
[2019-11-01] MEDS: GABAPENTIN 300 MG CAP PO SCH ×3 (05:56→21:12)
--- NOTE | 2019-11-01 06:46 | NUR ---
REPORT GIVEN TO AM NURSE POC REVIEWED
[2019-11-01 09:00] VITALS: BP 126/72
[2019-11-01] MEDS: clonazePAM 0.5 MG TAB PO SCH ×2 (10:39→21:10)
[2019-11-01] MEDS: DULoxetine HCL 30 MG CAP PO SCH ×2 (10:40→21:11)
[2019-11-01] MEDS: FUROSEMIDE 20 MG TAB PO SCH (10:40)
[2019-11-01] MEDS: PROPRANOLOL HCL 20 MG TAB PO SCH ×2 (10:41→22:03)
[2019-11-01] MEDS: MORPHINE SULF 30 mg ER tab PO SCH ×2 (10:42→22:03)
[2019-11-01] MEDS: busPIRone HCL 10 MG TAB PO SCH ×2 (10:49→21:11)
[2019-11-01 13:00] VITALS: BP 116/57
--- NOTE | 2019-11-01 16:40 | NUR ---
SPOKE WITH DR Love BURDEN TO UPDATE ABOUT PATIENT POC AND FOR NEW ORDERS. INFORMED MD THAT PATIENT REQUEST FOR ANOTHER DR TO SEE HER.
[2019-11-01] MEDS ORDERED: ALBUTEROL SULF 2.5 MG/0.5ML(0.5%) NEB SOLN NEB PRN (16:45)
[2019-11-01] MEDS ORDERED: IPRATROPIUM BROM 0.5 MG/2.5ML INH SOL NEB PRN (16:45)
--- NOTE | 2019-11-01 16:56 | NUR ---
SPOKE WITH DR Love BURDEN AGAIN ABOUT THE PATIENT REQUEST TO HAVE ANOTHER MD SEE HER. DR Love BURDEN INFORMED ME THAT LOOKING BACK INTO THE PATIENTS CHART THAT HE HAS NEVER SEEN OR TAKEN CARE OF THE PATIENT, THAT HIS BROTHER Michelle BURDEN HAD OVERSEEN HER CARE PREVIOUSLY. INFORMED THE PATIENT THAT DR Love BURDEN LOOKED THROUGH HER CHART AND HAS NEVER SEEN HER. PT STATES TO ME "OH IT JUST MUST'VE BEEN HIS BROTHER, BUT I COULD'VE SWORN THEY BOTH TOOK CARE OF ME". I ASKED THE PATIENT AT DR Love BURDEN REQUEST IF IT WAS OKAY IF HE SAW HER TODAY AND SHE STATED "YES LONG HE TREATS ME RIGHT". CALLED DR Love BURDEN AND INFORMED HIM OF THE PATIENT AGREEING TO HIM OVERSEEING HER CARE.
[2019-11-01 17:00] VITALS: BP 104/53
[2019-11-01] MEDS: ONDANSETRON HCL 4 MG/2 ML VIAL IV PRN (17:17)
--- NOTE | 2019-11-01 18:07 | NUR ---
DR Love BURDEN IS AT THE PATIENT'S BEDSIDE. INTRODUCED HIMSELF TO THE PATIENT AND HER , REVIEWED PLAN OF CARE INCLUDING IMAGING, LAB WORK, GASTRO DR GUSTAFSON'S RECOMMENDATIONS. INFORMED THE PATIENT THAT BASED UPON THE HYDASCAN TOMORROW AND REVIEW OF LFT TOMORROW HE AND DR GUSTAFSON CAN MAKE A DECISION FOR FURTHERING PLAN OF CARE. THE PATIENT AND HER VERBALIZED UNDERSTANDING ABOUT THE INFORMATION GIVEN AND HAD NO FURTHER QUESTIONS FOR THE DR AT THIS TIME. PATIENT AND HER THANKED DR Love BURDEN FOR SPENDING TIME WITH THEM AND STATED THEY APPRECIATE HIM GOING OVER THE PLAN WITH THEM.
--- NOTE | 2019-11-01 18:36 | NUR ---
DR GUTIERREZ PHONED TO INQUIRE ABOUT THE CONSULT FOR THE PATIENT. MD DISCUSSED PATIENT MEDICATIONS WITH MYSELF AND INFORMED ME THAT HE WILL SEE THE PATIENT TOMORROW. PATIENT INFORMED PAIN MGT MD WILL SEE HER TOMORROW.
--- NOTE | 2019-11-01 19:45 | NUR ---
Opening Shift Note Assumed care of patient, awake and alert. No S/S of distress/SOB or pain. Instructed on POC and to call for assist PRN, will continue to monitor for changes Q1hr and PRN.
[2019-11-01 22:27] VITALS: BP 106/61
[2019-11-01 23:09] VITALS: BP 106/61
[2019-11-02] MEDS: HYDROmorphone HCL 2 MG/ML VL IV PRN ×6 (01:48→23:07)
[2019-11-02] MEDS: ONDANSETRON HCL 4 MG/2 ML VIAL IV PRN ×2 (01:49→10:29)
[2019-11-02 05:24] LABS: Basophils # (auto) 0 10 ^3/uL (0-0.2); Basophils % (auto) 0.5 % (0.0-2.0); Eosinophils # (auto) 0.3 10 ^3/uL (0-0.8); Eosinophils % (auto) 2.7 % (0.0-7.0); Hematocrit 28.6 % (36.0-46.0); Hemoglobin 9.1 g/dL (12.2-16.2); Lymphocytes % (auto) 20.4 % (10.0-50.0); Mean Corpuscular Hemoglobin 24.7 pg (28.0-32.0); Mean Corpuscular Hgb Conc. 31.9 g/dL (32.0-36.0); Mean Corpuscular Volume 77.5 fL (80.0-100.0); Monocytes # (auto) 1.1 10 ^3/uL (0-1.3); Monocytes % (auto) 11.5 % (0.0-12.0); Neutrophils # (auto) 6.4 10 ^3/uL (1.6-8.6); Neutrophils % (auto) 64.9 % (37.0-80.0); Platelet Count (auto) 378 10^3/uL (140-450); Red Blood Cells 3.69 10^6/uL (4.0-5.20); Red Cell Distribution Width 16.5 % (11.8-14.3); White Blood Cell 9.8 10^3/uL (4.4-10.8)
[2019-11-02 05:30] VITALS: BP 101/64
[2019-11-02 05:38] LABS: INR 0.98 (0.9-1.15); Partial Thromboplastin Time 27.5 sec (23.64-32.05)
[2019-11-02 05:43] LABS: Albumin 3.3 g/dL (3.4-5.0); Bilirubin, Direct 0.7 mg/dL (0-0.2); Calcium 8.8 mg/dL (8.5-10.1); Potassium 3.3 mmol/L (3.5-5.1)
[2019-11-02 05:46] LABS: BUN/Creatinine Ratio 13.6; Total Protein 7.1 g/dL (6.4-8.2)
[2019-11-02] MEDS: BACLOFEN 10 MG TAB PO SCH ×3 (05:49→21:45)
[2019-11-02] MEDS: GABAPENTIN 300 MG CAP PO SCH ×3 (05:50→21:41)
[2019-11-02] MEDS: hydrOXYzine 25 MG TAB or CAP PO SCH ×4 (05:50→21:41)
--- NOTE | 2019-11-02 07:25 | NUR ---
Opening Shift Note Received report from Franca MALDONADO. Assumed care of patient, awake and alert. No S/S of distress/SOB. Reported tolerable abdominal pain. HIDA scan done. Instructed on POC and to call for assist PRN, will continue to monitor for changes Q1hr and PRN.
[2019-11-02 08:00] VITALS: BP 105/57
[2019-11-02 09:47] VITALS: BP 109/62
--- NOTE | 2019-11-02 09:54 | NUR ---
Dr Butt at bedside.
[2019-11-02] MEDS: PROPRANOLOL HCL 20 MG TAB PO SCH ×2 (10:00→21:40)
[2019-11-02] MEDS: busPIRone HCL 10 MG TAB PO SCH ×2 (10:12→21:43)
[2019-11-02] MEDS: DULoxetine HCL 30 MG CAP PO SCH ×2 (10:12→21:44)
[2019-11-02] MEDS: FUROSEMIDE 20 MG TAB PO SCH (10:12)
[2019-11-02] MEDS: clonazePAM 0.5 MG TAB PO SCH ×2 (10:12→21:42)
--- NOTE | 2019-11-02 10:55 | NUR ---
RECEIVED TELEPHONE ORDERS FROM DR. BARRY, SEE ORDERS.
--- NOTE | 2019-11-02 12:54 | NUR ---
I spoke with patient's nurse Madalyn regarding order to transfer to higher level of care. Per Madalyn, Dr. Callahan [facility] is planning on ERCP today. I called Dr. Love Cortez and left message to verify whether or not this patient still needs transfer. I also placed a page out to Dr. Butt to verify whether or not patient still requires transfer.
--- NOTE | 2019-11-02 13:12 | NUR ---
Nutrition Assessment Notes Please refer to link for full assessment notes. Est energy needs: 7062-0366 kcals (12-15 kcal/kgBW) Est protein needs: 57-71 gms/day (0.8-1.0 gm/kgBW) Will continue to monitor and reassess prn. Addendum: 11/02/19 at [address] Amended: Links added.
--- NOTE | 2019-11-02 14:13 | NUR ---
I received a call back from Dr. Butt-I let him know that I was calling to find out if patient still needed to be transferred to higher level of care for MRCP-I let him know that per nurse Dr. Callahan was going to do ERCP today. I let Dr. Butt know that I had reached out to Dr. Love Cortez as well to find out if patient still needs to be transferred. Dr. Butt stated "I don't know-call Dr. Cortez".
[2019-11-02 14:17] VITALS: BP 108/62
--- NOTE | 2019-11-02 16:05 | NUR ---
Dr. Arango at bedside. Received new orders, see orders.
--- NOTE | 2019-11-02 16:11 | NUR ---
I spoke with patient's nurse Madalyn, she said patient should be going for ERCP later this evening. I requested that Madalyn contact Dr. Arango to cancel the order to transfer to higher level of care.
[2019-11-02 16:28] VITALS: BP 105/57
--- NOTE | 2019-11-02 16:30 | NUR ---
DR. BARRY AT BEDSIDE. ERCP WILL BE TOMORROW, GIVE PATIENT CLEAR LIQUIDS THEN NPO AFTER MIDNIGHT. PATIENT MADE AWARE AND VERBALIZED UNDERSTANDING.
--- NOTE | 2019-11-02 18:30 | NUR ---
PATIENT SIGNED THE CONSENTS.
[2019-11-02] MEDS: IPRATROPIUM BROM 0.5 MG/2.5ML INH SOL NEB SCH (19:26)
[2019-11-02] MEDS: ALBUTEROL SULF 2.5 MG/0.5ML(0.5%) NEB SOLN NEB SCH (19:26)
--- NOTE | 2019-11-02 19:30 | NUR ---
Opening Shift Note Assumed care of patient, awake and alert. No S/S of distress/SOB. Reported tolerable abdominal pain. Instructed on POC and to call for assist PRN. Bed is in lowest locked position with bed rails up x2 and call light is within reach of the patient.
--- NOTE | 2019-11-02 20:27 | NUR ---
MD Alarcon at the bedside to see patient.
[2019-11-02] MEDS: MORPHINE SULF 30 mg ER tab PO SCH (21:44)
[2019-11-02 22:32] VITALS: BP 133/72
[2019-11-03] MEDS: HYDROmorphone HCL 2 MG/ML VL IV PRN ×5 (04:02→20:39)
[2019-11-03 05:30] VITALS: BP 127/73
[2019-11-03] MEDS: GABAPENTIN 300 MG CAP PO SCH ×3 (05:55→22:52)
[2019-11-03] MEDS: BACLOFEN 10 MG TAB PO SCH ×3 (05:55→22:50)
[2019-11-03] MEDS: hydrOXYzine 25 MG TAB or CAP PO SCH ×4 (05:55→22:53)
[2019-11-03 06:12] LABS: INR 0.97 (0.9-1.15)
[2019-11-03 06:23] LABS: Albumin 3.2 g/dL (3.4-5.0); Calcium 8.8 mg/dL (8.5-10.1); Potassium 3.6 mmol/L (3.5-5.1)
[2019-11-03 06:27] LABS: BUN/Creatinine Ratio 11.5; Bilirubin, Total 0.6 mg/dL (0.2-1.0)
[2019-11-03] MEDS: ONDANSETRON HCL 4 MG/2 ML VIAL IV PRN ×3 (06:40→22:54)
[2019-11-03] MEDS: ALBUTEROL SULF 2.5 MG/0.5ML(0.5%) NEB SOLN NEB SCH ×3 (06:59→19:44)
[2019-11-03] MEDS: IPRATROPIUM BROM 0.5 MG/2.5ML INH SOL NEB SCH ×3 (06:59→19:44)
--- NOTE | 2019-11-03 07:15 | NUR ---
Opening Shift Note Received report from Tiffani MALDONADO. Assumed care of patient, awake and alert. No S/S of distress/SOB. Reported pain, due pain medicine of dilaudid 0.5mg IV given. Emphasized NPO for ERCP today. Instructed on POC and to call for assist PRN, will continue to monitor for changes Q1hr and PRN.
[2019-11-03 08:00] VITALS: BP 109/67
--- NOTE | 2019-11-03 08:10 | NUR ---
PATIENT IS ASKING FOR PAIN MEDICINE. SAID HER STOMACH HURTS WITH SEVERITY SCALE OF 10/10. NOTED GUARDING THE PAIN SITE.
--- NOTE | 2019-11-03 08:40 | NUR ---
PATIENT REPORTED REDUCED PAIN AFTER THE DILAUDID GIVEN. SHE SAID THAT SHE TAKES PAIN MEDICINE EVERY 4 HOURS TO MANAGE HER PAIN.
[2019-11-03 09:00] VITALS: BP 109/67
[2019-11-03] MEDS: PROPRANOLOL HCL 20 MG TAB PO SCH ×2 (09:26→22:51)
--- NOTE | 2019-11-03 09:47 | NUR ---
PATIENT IS ANXIOUS ABOUT HER PROCEDURE TODAY, ASKS TO HAVE HER KLONOPIN PO ORDERED BY .
[2019-11-03] MEDS: busPIRone HCL 10 MG TAB PO SCH ×2 (09:48→22:50)
[2019-11-03] MEDS: DULoxetine HCL 30 MG CAP PO SCH ×2 (09:48→22:52)
[2019-11-03] MEDS: MORPHINE SULF 30 mg ER tab PO SCH ×2 (09:48→22:54)
[2019-11-03] MEDS: clonazePAM 0.5 MG TAB PO SCH ×2 (09:48→22:53)
[2019-11-03] MEDS: FUROSEMIDE 20 MG TAB PO SCH (09:48)
--- NOTE | 2019-11-03 10:00 | NUR ---
CHG WIPES GIVEN TO PATIENT.
--- NOTE | 2019-11-03 11:40 | NUR ---
CALLED [facility], SPOKE WITH KINJAL MALDONADO SAID THAT PATIENT'S ERCP IS CANCELLED TODAY DUE TO PATIENT'S RONCHI AUSCULTATED IN LUNGS BY DR. BENTON, ANESTHESIOLOGIST. CALLED [facility] TO CONFIRM THE CANCELLED PROCEDURE, SPOKE WITH THE PATIENT FINANCIAL SERVICES MANAGER, WILL HAVE THE GI DOCTOR CALL THE NURSE.
--- NOTE | 2019-11-03 12:41 | NUR ---
DR NAGY CALLED BACK, SAID THAT ERCP IS CANCELLED TODAY DUE TO PATIENT'S MEDICAL CONDITION IS UNSTABLE. SAID TO GIVE CLEAR LIQUIDS TO PATIENT FOR HER DIET.
[2019-11-03 13:00] VITALS: BP 103/59
--- NOTE | 2019-11-03 14:35 | NUR ---
I received a call from Dr. Love Cortez letting me know that patient does need to be transferred to higher level of care-he placed new order-he stated that they cancelled ERCP because of her respiratory status and it not being safe for her to go under anesthesia. Per Dr Cortez it is safer for patient to under MRCP. He requested that I reach out to several facilities including [facility]. I let him know that [facility] would be the ones to decide who I can reach out to. I called patient's nurse and asked her to re-weigh the patient and to measure her abdominal girth.
--- NOTE | 2019-11-03 15:20 | NUR ---
ABDOMINAL GIRTH MEASURED: 55 INCHES, WEIGHT IS 147KG.
[2019-11-03 15:31] LABS: White Blood Cell 12.2 10^3/uL (4.4-10.8)
[2019-11-03 15:33] LABS: Hemoglobin 9.4 g/dL (12.2-16.2); Mean Corpuscular Hemoglobin 24.3 pg (28.0-32.0); Mean Corpuscular Hgb Conc. 30.4 g/dL (32.0-36.0); Platelet Count (auto) 412 10^3/uL (140-450); Red Blood Cells 3.87 10^6/uL (4.0-5.20); Red Cell Distribution Width 16.9 % (11.8-14.3)
--- NOTE | 2019-11-03 15:35 | NUR ---
IV removal due for change IV DC'd with clean sterile technique, catheter fully intact. Pressure dressing applied to site. Patient tolerated well. IV insertion IV access obtained, via clean sterile technique by inserting gauge catheter 22 at left hand after 1 attempt. IV secured properly. No trauma to site. Patient tolerated procedure well.
[2019-11-03 15:40] LABS: Band Neutrophils % (manual) 0; Basophils % (manual) 0 (0.0-2.0); Blast Cells 0; Metamyelocytes % 0; Myelocytes % 0; Promyelocytes % 0; Reactive Lymphocytes 0
--- NOTE | 2019-11-03 16:25 | NUR ---
I called [facility] Transfer [facility] [phone] and spoke with Karin-faxed her requested clinical information as well as their transfer request form-provided contact information for Dr. Love Cortez as well as the nurse's station.
--- NOTE | 2019-11-03 16:28 | NUR ---
I called [facility] Dispensing Optician Kimberly [phone] and left message regarding new transfer to higher level of care request-asking for authorization for transfer as well as [facility].
--- NOTE | 2019-11-03 16:44 | NUR ---
I received a call from Kimberly at [facility]-she provided me with authorization numbers----for [facility] auth is [id number] and for facility auth is [id number]. I called [facility] [phone] and spoke with Nasim, placed them on will call pending transfer to higher level of care.
[2019-11-03 17:00] VITALS: BP 126/66
--- NOTE | 2019-11-03 17:00 | NUR ---
RECEIVED NEW VERBAL ORDER FROM DR. BURDEN, SEE ORDERS.
--- NOTE | 2019-11-03 17:16 | NUR ---
I called the [facility] ([facility])[phone] and spoke with Pj-provided him with contact information for Dr. Love Cortez as well as the nurses's station, provided him with [facility] auth number-faxed requested clinical items to [phone].
--- NOTE | 2019-11-03 17:18 | NUR ---
I called [facility] [phone] and spoke with casting house laborer Elzbieta-faxed her requested clinical information as well as contact information for Dr. Love Cortez and the nurse's station. I spoke with nurse Bergman and updated her on the status of the transfer.
[2019-11-03 17:32] LABS: Eosinophils % (manual) 4 (0-7); Lymphocytes % (manual) 24 (10.0-50.0); Monocytes % (manual) 10 (0-12)
--- NOTE | 2019-11-03 19:00 | NUR ---
INFORMED PATIENT THAT SHE CAN BE TRANSFERRED TO HIGHER LEVEL OF CARE ANYTIME. AWAITING FACILITY TO ACCEPT HER. WILL ENDORSE TO NIGHT NURSE.
--- NOTE | 2019-11-03 19:23 | NUR ---
Received call for accepting hospital: Received called from Santiago from [facility] regarding accepting physician and bed for patient. Bed assignment room 656B, accepting physician Florin Quevedo. To call for report at number [phone]. To call [facility] Addendum: 11/03/19 at 2316 by Tiffani Lloyd RN RN Spoke to Kiersten
--- NOTE | 2019-11-03 19:30 | NUR ---
Opening Shift Note Assumed care of patient, awake and alert oriented x4. No S/S of distress/SOB noted. Instructed on POC and to call for assist PRN. Bed is in lowest locked position with bed rails up x2
--- NOTE | 2019-11-03 20:10 | NUR ---
Called [facility]: Called [facility] and verified patients transfer. Due to high volume they are to come to citrus picker the patient in 2 or more hours.
[2019-11-03 22:00] VITALS: BP 118/73
--- NOTE | 2019-11-03 22:00 | NUR ---
Called [facility] center for Update: Called [facility] center for update on [facility] status and spoke to Ck. Still a 2hour or more wait till [facility] is available.
--- NOTE | 2019-11-03 22:08 | NUR ---
Called [facility] for report: Called [facility] #[phone] to give report to RN. Gave report to Linsey MALDONADO at [facility]. All questions answered regarding the patient. Waiting for [facility] transfer time.
--- NOTE | 2019-11-04 00:33 | NUR ---
Called [facility] center for Update: Called [facility] center for update on [facility] status and spoke to Ck. [facility] team currently on bed delay. May be about 30 minutes.
[2019-11-04 01:00] VITALS: BP 124/73
--- NOTE | 2019-11-04 01:15 | NUR ---
Discharge Transfers Patient is being transferred to [facility] to bed 656B under care of Linsey MALDONADO. Patient is to follow up with accepting doctor at the receiving facility, Florin Quevedo. hall monitor removed and cleaned, sent back to residential monitorhall monitor. Patients IV in left hand to be transferred with IV due to patient being transferred to higher level of care. Discharge vital signs 124/73 blood pressure, 70 heart rate, temperature 98.2, respiratory rate 20, 96% oxygen saturation on 3 liters. Updated [facility] regarding patient. Patient transferred with all of patients belongings, transfer paperwork given to [facility] for receiving hospital. Discharge paperwork given to the patient.
--- NOTE | 2019-11-04 01:17 | NUR ---
Called [place] RN: Called [facility] RN Linsey who is receiving patient. Updated her on patients recent discharge vitals and notified that [facility] is taking the patient down to [place]. RN Aware.
--- NOTE | 2019-11-04 01:21 | NUR ---
Called Transfer Center: Spoke to Morena from the transfer center and notified them about patient being taken by [facility] to [place] at this time. Transfer center made aware.
[2019-11-04] MEDS ORDERED: PANTOPRAZOLE 40 MG TAB PO SCH (10:00)
== END 2019-11-04 01:15 | disposition short-term general hospital (02) ==
LOC: ER 09:36 → TELE 09:37 → TELE-EAST 18:56
PROVIDERS: ADMIT Nurse Practitioner Acute Care; ATTEND Internal Medicine
DX: K80.50 Calculus of bile duct without cholangitis or cholecystitis without obstruction (principal); J96.10 Chronic respiratory failure, unspecified whether with hypoxia or hypercapnia; Z93.0 Tracheostomy status; Z99.81 Dependence on supplemental oxygen; I11.0 Hypertensive heart disease with heart failure; I50.32 Chronic diastolic (congestive) heart failure; E66.01 Morbid (severe) obesity due to excess calories; F11.20 Opioid dependence, uncomplicated; F41.9 Anxiety disorder, unspecified; F32.9 Major depressive disorder, single episode, unspecified; M79.7 Fibromyalgia; M19.90 Unspecified osteoarthritis, unspecified site; R07.89 Other chest pain; J44.9 Chronic obstructive pulmonary disease, unspecified; G89.4 Chronic pain syndrome; D50.9 Iron deficiency anemia, unspecified; Z88.8 Allergy status to other drugs, medicaments and biological substances; Z91.048 Other nonmedicinal substance allergy status; Z79.899 Other long term (current) drug therapy; Z87.440 Personal history of urinary (tract) infections; Z90.49 Acquired absence of other specified parts of digestive tract; Z68.44 Body mass index [BMI] 60.0-69.9, adult; Z88.9 Allergy status to unspecified drugs, medicaments and biological substances; Z80.3 Family history of malignant neoplasm of breast; Z80.8 Family history of malignant neoplasm of other organs or systems; Z81.8 Family history of other mental and behavioral disorders; Z82.49 Family history of ischemic heart disease and other diseases of the circulatory system; Z82.5 Family history of asthma and other chronic lower respiratory diseases; Z83.3 Family history of diabetes mellitus; Z88.1 Allergy status to other antibiotic agents
CPT/HCPCS: 36415; 36600; 51702; 71045; 74176; 78226; 80048; 80053; 80076; 81001; 82805; 83690; 83880; 84443; 84484; 84702; 85007; 85025; 85027; 85610; 85730; 93005; 94640; 96374; 96375; G0378; J2405